=== PATIENT | female | born 1955 | race Caucasian/White ===

== ENCOUNTER 2023-03-11 07:45 | Outpatient (OUT) | payer MEDICARE, OTHER, SELFPAY ==
[2023-03-11 08:44] LABS: Basophils Absolute Auto 0.1 10^3/uL (0.0-0.1); Basophils Percent Auto 1.5 % (0.2-2.0); Eosinophils Absolute Auto 0.2 10^3/uL (0.0-0.7); Hematocrit 46.4 % (36.0-48.0); Hemoglobin 14.5 g/dL (12.0-16.0); Immature Granulocytes Abs Auto 0.02 10^3/uL (0.00-0.03); Immature Granulocytes Pct Auto 0.3 % (0.0-0.5); Lymphocytes Absolute Auto 1.7 10^3/uL (1.2-3.8); Lymphocytes Percent Auto 25.3 % (20.5-60.0); Mean Corpuscular HGB Conc 31.3 g/dL (29.9-35.2); Mean Corpuscular Hemoglobin 30.1 pg (26.7-34.0); Mean Corpuscular Volume 96.3 fL (81.0-99.0); Mean Platelet Volume 11.2 fL (9.5-13.5); Monocytes Absolute Auto 0.7 10^3/uL (0.3-0.8); Monocytes Percent Auto 10.8 % (1.7-12.0); Neutrophils Absolute Auto 3.9 10^3/uL (1.4-6.5); Neutrophils Percent Auto 59.1 % (43.0-75.0); Platelet Count 164 10^3/uL (150-450); Red Blood Count 4.82 10^6/uL (4.20-5.40); Red Cell Distribution Width 13.3 % (11.0-15.0); White Blood Count 6.6 10^3/uL (4.0-11.0)
[2023-03-11 11:16] LABS: Estimated Average Glucose 108 mg/dL; Glycohemoglobin A1C 5.4 % (4.5-6.2)
[2023-03-11 13:04] LABS: Alanine Aminotransferase 19 U/L (14-59); Albumin Globulin Ratio 0.9; Albumin Level 3.5 g/dL (3.4-5.0); Alkaline Phosphatase 57 U/L (46-116); Anion Gap 14.3; Aspartate Amino Transferase 11 U/L (15-37); BUN Creatinine Ratio 14.9; Bilirubin Total 0.2 mg/dL (0.2-1.0); Calcium 9.1 mg/dL (8.5-10.1); Carbon Dioxide 24.3 mmol/L (21.0-32.0); Chloride 106 mmol/L (98-107); Chol HDL Ratio 4.7; Cholesterol 168 mg/dL (<=200); Estimated GFR (African America 28 (>=60); Estimated GFR (Non-African Ame 23 (>=60); Free T3 2.87 pg/mL (2.18-3.98); Globulin 3.9 g/dL; Glucose 77 mg/dL (74-106); HDL Cholesterol 36 mg/dL (40-60); Potassium 4.6 mmol/L (3.5-5.1); Sodium 140 mmol/L (136-145); Thyroid Stimulating Hormone 5.667 uIU/mL (0.358-3.740); Total Protein 7.4 g/dL (6.4-8.2); Triglycerides 159 mg/dL (<=150); VLDL CHOLESTEROL 31.8 mg/dL
[2023-03-12 10:09] LABS: Insulin 28.5 uIU/mL (2.6-24.9)
== END 2023-03-11 07:46 | disposition home or self-care (01) ==
LOC: LAB 07:46
PROVIDERS: PCP Nurse Practitioner Family; Visit Provider Nurse Practitioner Family
DX: E78.5 Hyperlipidemia, unspecified (principal); R53.83 Other fatigue; Z79.899 Other long term (current) drug therapy; R73.09 Other abnormal glucose; Z12.11 Encounter for screening for malignant neoplasm of colon; E55.9 Vitamin D deficiency, unspecified
CPT/HCPCS: 36415; 80053; 80061; 82306; 83036; 83525; 83540; 84436; 84443; 84481; 85025

== ENCOUNTER 2023-03-11 07:55 | Outpatient (OUT) | payer MEDICARE, OTHER, SELFPAY ==
--- NOTE | 2023-03-11 08:12 | XR_ITS ---
[address] [address] Patient Name: RODO MARES MRN: [id number] date: 1955 Sex: F Assigned Patient Location: [facility] Current Patient Location: [facility] Accession/Order Number: [id number] Exam Date: 03/11/2023 08:05 Report Date: 03/12/2023 13:51 At the request of: GUZMAN VICTORIA Procedure: XR DEXA axial skeleton EXAMINATION: XR DEXA axial skeleton HISTORY: Osteopenia COMPARISON: DEXA bone densitometry 02/27/2021 TECHNIQUE: Dual-energy X-ray absorptiometry (DXA) was performed. FINDINGS: SPINE ANALYSIS: Average bone mineral density is 1.153 g/cm2. T-score (standard deviation relative to young adult mean): -0.2 . +8.0% change since prior study. HIP ANALYSIS: Lowest bone mineral density is within the left femoral neck, 0.750 g/cm2. T-score (standard deviation relative to young adult mean): -2.1 . -3.8% change since prior study. XR/XR DEXA axial skeleton IMPRESSION: World Kevin Organization Classification: Osteopenia - Moderate Fracture Risk Electronically authenticated by: VANESA DUNLAP Date: 03/12/2023 13:51
== END 2023-03-11 07:56 | disposition home or self-care (01) ==
LOC: RAD 07:55
PROVIDERS: PCP Nurse Practitioner Family; Visit Provider Nurse Practitioner Family
DX: M85.811 Other specified disorders of bone density and structure, right shoulder (principal)
CPT/HCPCS: 77080

== ENCOUNTER 2023-04-14 08:58 | Outpatient (OUT) | payer MEDICARE, OTHER, SELFPAY ==
--- NOTE | 2023-04-14 09:00 | MM_ITS ---
Patient: RODO MARES Exam Date: 04/14/2023 : 1955 Gender:F Ordering : GUZMAN VICTORIA [facility] Admission #: [id number] Family : Order #: [id number] CLICK HERE TO VIEW EXAM RADIOLOGY REPORT PROCEDURE: MM TOMOSYNTHESIS SCREENING BI COMPARISON: MG MAMM LARISSA SCRN W CAD DIG, 05/31/2019. MG MAMM SCREEN 3D LARISSA CAD, 02/27/2021. INDICATIONS: Screening Calculator Name NCI Breast Cancer Risk Assessment Tool 5 Year Breast Cancer Risk Not Reported. Lifetime Breast Cancer Risk Not Reported. Personal Breast Cancer No Personal Ovarian Cancer No Treatments None Family Cancers None LOCATION: [facility] BREAST COMPOSITION: Heterogeneously dense,which may obscure small masses. FINDINGS: DIAGNOSTIC CATEGORY 2--BENIGN FINDING. NO CHANGE FROM COMPARISON. Scattered benign-appearing nodules are present. Scattered benign-appearing calcifications are present. Scattered benign-appearing lymph nodes are present. RIGHT BREAST: No significant suspicious finding. LEFT BREAST: No significant suspicious finding. RECOMMENDATIONS: ROUTINE MAMMOGRAM AND CLINICAL EVALUATION IN 12 MONTHS. PLEASE NOTE: A NORMAL MAMMOGRAM DOES NOT EXCLUDE THE POSSIBILITY OF BREAST CANCER. A CLINICALLY SUSPICIOUS PALPABLE LUMP SHOULD BE BIOPSIED. Dictated by: Kian Sanchez MD on 04/14/2023 at 15:19 Approved by: Kian Sanchez MD on 04/14/2023 at 15:20
[2023-04-14 11:01] LABS: Free T4 0.83 ng/dL (0.76-1.46)
[2023-04-14 11:18] LABS: Thyroid Stimulating Hormone 3.316 uIU/mL (0.358-3.740)
== END 2023-04-14 08:59 | disposition home or self-care (01) ==
LOC: MAMMO 08:58
PROVIDERS: PCP Nurse Practitioner Family; Visit Provider Nurse Practitioner Family
DX: Z12.31 Encounter for screening mammogram for malignant neoplasm of breast (principal); R94.6 Abnormal results of thyroid function studies
CPT/HCPCS: 36415; 77063; 77067; 84439; 84443

== ENCOUNTER 2023-10-25 19:56 | Emergency (ER) | payer MEDICARE, OTHER, SELFPAY ==
[2023-10-25] VITALS (25 sets, daily range): BP systolic 159–178; BP diastolic 60–81; PULSE 70–78; O2SAT 96–100; BMI 26.3
[2023-10-25 20:06] LABS: Glucometer 138 mg/dL (74-106)
--- NOTE | 2023-10-25 20:10 | CT_ITS ---
The [address] [address] Patient Name: RODO MARES MRN: [facility]:[id number] date: 1955 Sex: F Assigned Patient Location: ER Current Patient Location: Accession/Order Number: [id number] Exam Date: 10/25/2023 20:50 Report Date: 10/25/2023 21:35 At the request of: ELSIE WILKINSON Procedure: CT angio neck EX CT angio neck HISTORY: Right arm weakness COMPARISON: None. TECHNIQUE: Overlapping thin sections were obtained during a bolus of IV contrast from the aortic arch through the [place] of [place]. Reconstruction of the source data set includes multiplanar 2D in the bilateral oblique planes, and 3D sagittal and coronal thin slab MIP One of the following dose optimization techniques was utilized in the performance of this exam: Automated exposure control; adjustment of the mA and/or kV according to the patient's size; or use of an iterative reconstruction technique. Specific details can be referenced in the facility's radiology CT exam operational policy. FINDINGS: Angiographic findings: Aortic arch and great vessels: Negative. Right CCA/ICA: Calcified plaque at the carotid bulb producing a mild NASCET 0-50% (closer to 0%) diameter stenosis. Left CCA/ICA: Smooth noncalcified plaque producing a severe NASCET greater than 70% diameter stenosis Vertebrobasilar: Negative. [place] of [place]: Negative. Additional non-angiographic findings: None significant. CT/CT angio neck IMPRESSION: 1. 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 Electronically authenticated by: LIV ANDERSEN Date: 10/25/2023 21:35
--- NOTE | 2023-10-25 20:10 | CT_ITS ---
The [address] [address] Patient Name: RODO MARES MRN: [facility]:[id number] date: 1955 Sex: F Assigned Patient Location: ER Current Patient Location: ER Accession/Order Number: [id number] Exam Date: 10/25/2023 20:18 Report Date: 10/25/2023 21:00 At the request of: ELSIE WILKINSON Procedure: CT stroke head/brain wo con EXAMINATION: CT stroke head/brain wo con, 10/25/2023 8:18 PM EDT HISTORY: Right arm weakness COMPARISON: None. TECHNIQUE: CT scan of the head was performed without IV contrast. CT dose reduction technique was used, including Automated Exposure Control. FINDINGS: BRAIN PARENCHYMA/CSF SPACES: Ventricles are normal in size for age. There is no hemorrhage, mass effect or midline shift. Atherosclerotic calcification of the vertebral and bilateral carotid arteries. Small likely chronic lacunar infarct in the left thalamus. Additional small likely chronic lacunar infarcts in the bilateral basal ganglia. Mild low-attenuation in the white matter consistent with chronic microvascular ischemia. PARANASAL SINUSES: Clear. SKULL BASE AND CALVARIUM: Moderate to large right mastoid and middle ear effusion. EXTRACRANIAL SOFT TISSUES: Normal. CT/CT stroke head/brain wo con IMPRESSION: 1. No acute intracranial abnormality. 2. Atherosclerotic calcification, chronic microvascular ischemia and several likely chronic lacunar infarcts in the bilateral basal ganglia and the left thalamus. 3. Right mastoid and middle ear effusion. Recommend correlation for otomastoiditis. Electronically authenticated by: VANESA MONAE Date: 10/25/2023 21:00
--- NOTE | 2023-10-25 20:10 | CT_ITS ---
The [address] [address] Patient Name: RODO MARES MRN: [facility]:[id number] date: 1955 Sex: F Assigned Patient Location: ER Current Patient Location: ER Accession/Order Number: [id number] Exam Date: 10/25/2023 20:50 Report Date: 10/25/2023 21:37 At the request of: ELSIE WILKINSON Procedure: CT angio head Right arm weakness HISTORY: Right arm weakness COMPARISON: None. TECHNIQUE: Overlapping thin sections were obtained during a bolus of IV contrast from the upper neck through the upper cerebrum. Reconstruction of the source data set includes multiplanar 2D in the bilateral oblique planes, and 3D sagittal and coronal thin slab MIP series. 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 One of the following dose optimization techniques was utilized in the performance of this exam: Automated exposure control; adjustment of the mA and/or kV according to the patient's size; or use of an iterative reconstruction technique. Specific details can be referenced in the facility's radiology CT exam operational policy. FINDINGS: Angiographic findings: Internal carotids: Minimal calcified plaque in the bilateral carotid siphons Vertebrobasilar: Negative. [place] of [place]: Negative. TOI circulation: Negative. MCA circulation: Negative. BILINGUAL TRAINER circulation: Negative. Additional non-angiographic findings: None significant. CT/CT angio head IMPRESSION: 1. No evidence of proximal large vessel occlusion, flow-limiting intracranial stenosis or aneurysm Electronically authenticated by: LIV ANDERSEN Date: 10/25/2023 21:37
--- NOTE | 2023-10-25 20:13 | XR_ITS ---
The [address] [address] Patient Name: RODO MARES MRN: [facility]:[id number] date: 1955 Sex: F Assigned Patient Location: ER Current Patient Location: ER Accession/Order Number: [id number] Exam Date: 10/25/2023 20:45 Report Date: 10/25/2023 21:49 At the request of: ELSIE WILKINSON Procedure: XR chest 1V EXAMINATION: XR chest 1V, , 10/25/2023 8:45 PM EDT INDICATION: TIA HISTORY: Ordering Provider Reason for Exam: TIA Technologist Note: Additional: COMPARISON: None. TECHNIQUE: Chest x-ray: One view. FINDINGS: No pneumothorax, pleural effusion or focal airspace consolidation. Heart is normal in size. Bony thorax is unremarkable. XR/XR chest 1V IMPRESSION: No acute cardiopulmonary process. Electronically authenticated by: RAFA GRIFFITH Date: 10/25/2023 21:49
--- NOTE | 2023-10-25 20:13 | ECG_ITS ---
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
--- NOTE | 2023-10-25 20:14 | ED.GENADUL1 ---
HPI HPI - General Adult General Chief complaint: Neuro Symptoms/Deficit Stated complaint: Stroke Possible Time Seen by Provider: 10/25/23 19:57 Source: patient and family Mode of arrival: Wheelchair Limitations: no limitations History of Present Illness HPI narrative: Patient is A 67-year-old female with a history of rheumatoid arthritis, Hypertension who presents to the emergency department for possible stroke type symptoms. 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 At this time, patient has no noted facial drooping or speech changes by family. She is alert and oriented and answering questions appropriately. She is using her right hand without difficulty. She denies fevers, chills, vomiting, chest pain, shortness of breath, dizziness. She has had intermittent headaches for the last several days. She was treated last week for bronchitis by her primary care provider with a Z-Parish, prednisone and Tessalon Perles. She states her symptoms have improved and she has not needed the Tessalon Perles in the last several days. She is a pack per day cigarette smoker. She denies these symptoms previously, but states she was told by her PCP about 10 years ago that she has had a previous stroke. She does not take anticoagulation. Related Data Home Medications ?Medication ?Instructions ?Recorded ?Confirmed alendronate 70 mg tablet 70 mg PO .weekly 10/25/23 10/25/23 calcitriol 0.25 mcg capsule 0.25 mcg PO DAILY 10/25/23 10/25/23 calcium carbonate (Oyster Shell 500 mg PO DAILY 10/25/23 10/25/23 Calcium 500) cetirizine 10 mg tablet 10 mg PO DAILY 10/25/23 10/25/23 cholecalciferol (vitamin D3) 50 50 mcg PO DAILY 10/25/23 10/25/23 mcg (2,000 unit) capsule (Vitamin D3) escitalopram oxalate 5 mg tablet 5 mg PO DAILY 10/25/23 10/25/23 leflunomide 10 mg tablet 10 mg PO DAILY 10/25/23 10/25/23 lisinopril 10 mg tablet 10 mg PO DAILY 10/25/23 10/25/23 magnesium oxide 400 mg (241.3 mg 400 mg PO DAILY 10/25/23 10/25/23 magnesium) tablet Allergies Allergy/AdvReac Type Severity Reaction Status Date / Time No Known Drug Allergies Allergy Verified 10/25/23 20:05 Opioid HPI Opioid Management Most Recent Opioid Data: No Data to Display Review of Systems ROS Constitutional Denies: fever or chills Ears, nose, mouth, and throat Denies: throat pain Respiratory Denies: shortness of breath or cough Gastrointestinal Denies: nausea or vomiting Musculoskeletal Denies: back pain or neck pain Integumentary/Breast Denies: rash Neurological Reports: headache and weakness in extremities; Denies: numbness in extremities, lack of coordination or dizziness Hematologic/Lymphatic Denies: easy bruising or easy bleeding Exam Narrative Exam Narrative: Gen.: Awake, alert, in no distress Head: Normocephalic, atraumatic ENT: Moist mucous membranes, No facial drooping noted. Clear speech Respiratory: No respiratory distress, lungs clear bilaterally Cardio: Regular rate and rhythm Extremities: Moves extremities equally, no injuries noted Psych: Normal mood and affect Neuro: No focal neuro deficit; NIH stroke scale of 0 Skin: Warm, dry, intact Constitutional Vital Signs, click to edit/add: Last Vital Signs Pulse 74 10/25/23 20:10 Resp 19 10/25/23 20:10 BP 161/60 H 10/25/23 20:10 Pulse Ox 98 10/25/23 20:10 O2 Del Method Room Air 10/25/23 19:59 Course Vital Signs Vital signs: Vital Signs Pulse Rate 76 10/25/23 19:59 Respiratory Rate 18 10/25/23 19:59 Blood Pressure 166/81 H 10/25/23 19:59 Pulse Oximetry 99 10/25/23 19:59 Oxygen Delivery Method Room Air 10/25/23 19:59 Pulse Rate 74 10/25/23 20:10 Respiratory Rate 19 10/25/23 20:10 Blood Pressure 161/60 H 10/25/23 20:10 Pulse Oximetry 98 10/25/23 20:10 Oxygen Delivery Method Room Air 10/25/23 19:59 Medical Decision Making [facility] Narrative Medical decision making narrative: Labs obtained, patient was immediately sent for CT of the brain, noncontrast to rule out stroke. This was unremarkable although there are old lacunar infarcts noted. CT angio of the head and neck was performed, patient has a creatinine of 2.1 with GFR 28, CT angio was discussed with the radiologist who approved the study and requested the patient receive IV fluids. Patient has no significant focal medical complaints in the ER. Her vital signs are unremarkable. CT angio of the head and neck with no evidence of large vessel occlusion. I spoke with Dr. Lazaro for interventional stroke at [facility], given the patient's 70% stenosis in the left carotid artery, he recommended to be transferred to [place] for stroke evaluation. He requested that the patient have aspirin and Plavix and be transferred. Excepted to Dr. Ray. Patient is stable at time of transfer. Critical care time 35 minutes. Medical Records Medical records reviewed: Yes I reviewed the patient's medical records Lab Data Lab results reviewed: Yes I reviewed the patient's lab results Labs: Lab Results 10/25/23 10/25/23 Range/Units 20:04 20:07 WBC 14.3 H (4.0-11.0) 10^3/uL RBC 4.45 (4.20-5.40) 10^6/uL Hgb 13.6 (12.0-16.0) g/dL Hct 42.4 (36.0-48.0) % MCV 95.3 (81.0-99.0) fL MCH 30.6 (26.7-34.0) pg MCHC 32.1 (29.9-35.2) g/dL RDW 13.6 (11.0-15.0) % Plt Count 194 (150-450) 10^3/uL MPV 10.8 (9.5-13.5) fL Neut % (Auto) 59.9 (43.0-75.0) % Lymph % (Auto) 29.3 (20.5-60.0) % [place] % (Auto) 7.9 (1.7-12.0) % Eos % (Auto) 0.9 (0.9-7.0) % Baso % (Auto) 0.7 (0.2-2.0) % Neut # (Auto) 8.5 H (1.4-6.5) 10^3/uL Lymph # (Auto) 4.2 H (1.2-3.8) 10^3/uL [place] # (Auto) 1.1 H (0.3-0.8) 10^3/uL Eos # (Auto) 0.1 (0.0-0.7) 10^3/uL Baso # (Auto) 0.1 (0.0-0.1) 10^3/uL Abs Immat Gran (auto) 0.19 H (0.00-0.03) 10^3/uL Imm/Tot Granulo (auto) 1.3 H (0.0-0.5) % PT 9.8 (9.0-11.6) sec INR <0.93 Sodium 144 (136-145) mmol/L Potassium 3.7 (3.5-5.1) mmol/L Chloride 110 H (98-107) mmol/L Carbon Dioxide 23.0 (21.0-32.0) mmol/L Anion Gap 14.7 BUN 31.0 H (7.0-18.0) mg/dL Creatinine 2.10 H (0.55-1.02) mg/dL Est GFR ( Amer) 28 L (>=60) Est GFR (Non-Af Amer) 23 L (>=60) BUN/Creatinine Ratio 14.8 Glucose 111 H (74-106) mg/dL Calcium 9.1 (8.5-10.1) mg/dL Total Bilirubin 0.3 (0.2-1.0) mg/dL AST 10 L (15-37) U/L ALT 17 (14-59) U/L Alkaline Phosphatase 51 (46-116) U/L Troponin I High Sens 13.8 (4.0-51.3) pg/mL Total Protein 7.0 (6.4-8.2) g/dL Albumin 3.5 (3.4-5.0) g/dL Globulin 3.5 g/dL Albumin/Globulin Ratio 1.0 TSH 7.462 H (0.358-3.740) uIU/mL Free T4 0.79 (0.76-1.46) ng/dL Free T3 2.39 (2.18-3.98) pg/mL POC Glucose 138 H (74-106) mg/dL Imaging Data CT scan - head: Radiologist's impression: ITS Impressions Brain CT 10/25/23 20:10 IMPRESSION: 1. No acute intracranial abnormality. 2. Atherosclerotic calcification, chronic microvascular ischemia and several likely chronic lacunar infarcts in the bilateral basal ganglia and the left thalamus. 3. Right mastoid and middle ear effusion. Recommend correlation for otomastoiditis. Electronically authenticated by: VANESA MONAE Date: 10/25/2023 21:00 Head CTA 10/25/23 20:10 IMPRESSION: 1. No evidence of proximal large vessel occlusion, flow-limiting intracranial stenosis or aneurysm Electronically authenticated by: LIV ANDERSEN Date: 10/25/2023 21:37 Neck CTA 10/25/23 20:10 IMPRESSION: 1. 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 Electronically authenticated by: LIV ANDERSEN Date: 10/25/2023 21:35 ECG Data Attestation: I personally reviewed and interpreted this ECG as follows: (Normal sinus rhythm at a rate of 70, no acute ST elevation or ectopy. EKG reviewed by attending physician) Discharge Plan Discharge Stand Alone Forms: Portal Instructions Chief Complaint: Neuro Symptoms/Deficit Clinical Impression: Carotid artery stenosis, Transient ischemic attack (TIA) Patient Disposition: [facility] Time of Disposition Decision: 21:54 Discharge Location: [facility] Condition: Good Mode of Transportation: EMS Prescriptions / Home Meds: No Action cetirizine 10 mg tablet 10 mg PO DAILY alendronate 70 mg tablet 70 mg PO .weekly leflunomide 10 mg tablet 10 mg PO DAILY magnesium oxide 400 mg (241.3 mg magnesium) tablet 400 mg PO DAILY calcium carbonate [Oyster Shell Calcium 500] 500 mg calcium (1,250 mg) tablet 500 mg PO DAILY lisinopril 10 mg tablet 10 mg PO DAILY calcitriol 0.25 mcg capsule 0.25 mcg PO DAILY escitalopram oxalate 5 mg tablet 5 mg PO DAILY cholecalciferol (vitamin D3) [Vitamin D3] 50 mcg (2,000 unit) capsule 50 mcg PO DAILY Print Language: Ukrainian Referrals: GUZMAN VICTORIA [Primary Care Provider] - 1 week
[2023-10-25 20:19] LABS: Basophils Absolute Auto 0.1 10^3/uL (0.0-0.1); Basophils Percent Auto 0.7 % (0.2-2.0); Eosinophils Absolute Auto 0.1 10^3/uL (0.0-0.7); Eosinophils Percent Auto 0.9 % (0.9-7.0); Hematocrit 42.4 % (36.0-48.0); Hemoglobin 13.6 g/dL (12.0-16.0); Immature Granulocytes Abs Auto 0.19 10^3/uL (0.00-0.03); Immature Granulocytes Pct Auto 1.3 % (0.0-0.5); Lymphocytes Absolute Auto 4.2 10^3/uL (1.2-3.8); Lymphocytes Percent Auto 29.3 % (20.5-60.0); Mean Corpuscular HGB Conc 32.1 g/dL (29.9-35.2); Mean Corpuscular Hemoglobin 30.6 pg (26.7-34.0); Mean Corpuscular Volume 95.3 fL (81.0-99.0); Mean Platelet Volume 10.8 fL (9.5-13.5); Monocytes Absolute Auto 1.1 10^3/uL (0.3-0.8); Monocytes Percent Auto 7.9 % (1.7-12.0); Neutrophils Absolute Auto 8.5 10^3/uL (1.4-6.5); Neutrophils Percent Auto 59.9 % (43.0-75.0); Platelet Count 194 10^3/uL (150-450); Red Blood Count 4.45 10^6/uL (4.20-5.40); Red Cell Distribution Width 13.6 % (11.0-15.0); White Blood Count 14.3 10^3/uL (4.0-11.0)
[2023-10-25 20:33] LABS: INR <0.93; Prothrombin Time 9.8 sec (9.0-11.6)
[2023-10-25 20:37] LABS: Alanine Aminotransferase 17 U/L (14-59); Albumin Level 3.5 g/dL (3.4-5.0); Alkaline Phosphatase 51 U/L (46-116); Anion Gap 14.7; Aspartate Amino Transferase 10 U/L (15-37); BUN Creatinine Ratio 14.8; Bilirubin Total 0.3 mg/dL (0.2-1.0); Calcium 9.1 mg/dL (8.5-10.1); Chloride 110 mmol/L (98-107); Estimated GFR (African America 28 (>=60); Estimated GFR (Non-African Ame 23 (>=60); Globulin 3.5 g/dL; Glucose 111 mg/dL (74-106); Potassium 3.7 mmol/L (3.5-5.1); Sodium 144 mmol/L (136-145)
[2023-10-25 20:43] LABS: Thyroid Stimulating Hormone 7.462 uIU/mL (0.358-3.740); Troponin I High Sensitivity 13.8 pg/mL (4.0-51.3)
[2023-10-25] MEDS: 0.9 % SODIUM CHLORIDE 1,000 ML 1000 ML IV (21:00)
[2023-10-25 21:09] LABS: Free T4 0.79 ng/dL (0.76-1.46)
[2023-10-25 21:16] LABS: Free T3 2.39 pg/mL (2.18-3.98)
[2023-10-25] MEDS: ASPIRIN 81 MG TAB.CHEW 324 MG PO (22:05)
[2023-10-25] MEDS: CLOPIDOGREL BISULFATE 75 MG TABLET 300 MG PO (22:05)
== END 2023-10-25 23:42 | disposition short-term general hospital (02) ==
PROVIDERS: Physician Assistant; Emergency Provider Emergency Medicine; PCP Nurse Practitioner Family
DX: I65.22 Occlusion and stenosis of left carotid artery (principal); G45.9 Transient cerebral ischemic attack, unspecified; Z79.899 Other long term (current) drug therapy; F17.210 Nicotine dependence, cigarettes, uncomplicated
CPT/HCPCS: 36415; 36416; 70450; 70496; 70498; 71045; 80053; 82948; 84439; 84443; 84481; 84484; 85025; 85610; 93005; 99285; Q9967

== ENCOUNTER 2023-11-25 15:54 | Emergency (ER) | payer MEDICARE, OTHER, SELFPAY ==
[2023-11-25 15:58] VITALS: BP 163/71; PULSE 64; TEMP 36.7; O2SAT 99; BMI 27.5
--- NOTE | 2023-11-25 16:04 | CT_ITS ---
The [address] [address] Patient Name: RODO MARES MRN: [facility]:[id number] date: 1955 Sex: F Assigned Patient Location: ER Current Patient Location: ER Accession/Order Number: [id number] Exam Date: 11/25/2023 16:20 Report Date: 11/25/2023 16:45 At the request of: JESSIKA CALI Procedure: CT head/brain wo con EXAM: CT head/brain wo con CLINICAL INDICATION: headache recent stroke COMPARISON: CT head and CTA head/neck 10/25/2023. TECHNIQUE: Axial CT images of the brain were obtained without contrast. Coronal and sagittal reformats were obtained. Dose reduction techniques were achieved by using automated exposure control and/or adjustment of mA and/or kV according to patient size and/or use of iterative reconstruction technique. FINDINGS: No intracranial hemorrhage, extra-axial fluid collection, hydrocephalus, midline shift, or new acute large vessel territory infarction. No other mass effect. Patchy periventricular and subcortical hypoattenuation is likely on the basis of chronic microvascular angiopathic changes. Mild symmetric global volume loss with bilateral frontal lobe predominance. Commensurate prominence of the ventricular system. Basal cisterns are patent. Unchanged old bilateral basal ganglia lacunar infarcts. No calvarial fracture. Normal soft tissues. Paranasal sinuses are well-aerated. Small moderate right mastoid effusion. CT/CT head/brain wo con IMPRESSION: No acute intracranial process. No substantial change since 10/25/2023. Electronically authenticated by: SHIVAM NATH Date: 11/25/2023 16:45
--- NOTE | 2023-11-25 16:06 | ED_ITS ---
HPI HPI - General Adult General Chief complaint: Headache Stated complaint: HEADACHE Time Seen by Provider: 11/25/23 15:58 Source: patient Mode of arrival: walk-in Limitations: no limitations History of Present Illness HPI narrative: Patient presents the ED complaining of a headache. She reports that it is generalized but slightly more on the right side. About a month ago she had a stroke with right-sided weakness. She has recovered mostly but not fully. She was started on aspirin and Plavix. She is concerned that the headaches are a sign of another stroke and she is nervous about that. She said that she was feeling okay after the stroke for 2 weeks and then for the past 2 weeks she has been having these headaches on and off but more often than not. She does not have a history of headaches prior to this. She states she is sensitive to light but not sound.She denies recent fall or trauma Related Data Home Medications ?Medication ?Instructions ?Recorded ?Confirmed alendronate 70 mg tablet 70 mg PO .weekly 10/25/23 10/25/23 calcitriol 0.25 mcg capsule 0.25 mcg PO DAILY 10/25/23 10/25/23 calcium carbonate (Oyster Shell 500 mg PO DAILY 10/25/23 10/25/23 Calcium 500) cetirizine 10 mg tablet 10 mg PO DAILY 10/25/23 10/25/23 cholecalciferol (vitamin D3) 50 50 mcg PO DAILY 10/25/23 10/25/23 mcg (2,000 unit) capsule (Vitamin D3) escitalopram oxalate 5 mg tablet 5 mg PO DAILY 10/25/23 10/25/23 leflunomide 10 mg tablet 10 mg PO DAILY 10/25/23 10/25/23 lisinopril 10 mg tablet 10 mg PO DAILY 10/25/23 10/25/23 magnesium oxide 400 mg (241.3 mg 400 mg PO DAILY 10/25/23 10/25/23 magnesium) tablet Previous Rx's ?Medication ?Instructions ?Recorded [id number] 1 cap PO Q8H PRN pain #20 caps 11/25/23 50 mg-300 mg-40 mg capsule (Fioricet) Allergies Allergy/AdvReac Type Severity Reaction Status Date / Time No Known Drug Allergies Allergy Verified 10/25/23 20:05 Opioid HPI Opioid Management Most Recent Opioid Data: No Data to Display Review of Systems ROS Status of ROS 10 or more systems reviewed and unremark able except as noted in history and below Exam Narrative Exam Narrative: Time Seen: [] Vital Signs: [Per nurse's notes.] General: [Alert] Skin: [Warm, dry, no rash.] Head: [Normocephalic, atraumatic.] Neck: [Supple, trachea midline.] Eye: [Pupils are equal, round and reactive to light, extraocular movements are intact, normal conjunctiva.] Ears, nose, mouth and throat: oral mucosa moist. Cardiovascular: [Regular rate and rhythm, no murmur.] Respiratory: [Lungs are clear to auscultation, respirations are non-labored, breath sounds are equal.] Chest wall: [No tenderness, no deformity.] Gastrointestinal: [Soft, nontender, non distended, normal bowel sounds.] MSK: 5 out of 5 muscle strength x 4 extremities no calf pain or edema Lymphatics: [No lymphadenopathy.] Psychiatric: [Cooperative, appropriate mood & affect.] Neurological: [Alert and oriented to person, place, time, and situation, no focal neurological deficit observed.] Constitutional Vital Signs, click to edit/add: Last Vital Signs Temp 98.1 F 11/25/23 15:58 Pulse 64 11/25/23 15:58 Resp 18 11/25/23 15:58 BP 163/71 H 11/25/23 15:58 Pulse Ox 99 11/25/23 15:58 O2 Del Method Room Air 11/25/23 15:58 Course Vital Signs Vital signs: Vital Signs Temperature 98.1 F 11/25/23 15:58 Pulse Rate 64 11/25/23 15:58 Respiratory Rate 18 11/25/23 15:58 Blood Pressure 163/71 H 11/25/23 15:58 Pulse Oximetry 99 11/25/23 15:58 Oxygen Delivery Method Room Air 11/25/23 15:58 Temperature 98.1 F 11/25/23 15:58 Pulse Rate 64 11/25/23 15:58 Respiratory Rate 18 11/25/23 15:58 Blood Pressure 163/71 H 11/25/23 15:58 Pulse Oximetry 99 11/25/23 15:58 Oxygen Delivery Method Room Air 11/25/23 15:58 Medical Decision Making MDM Narrative Medical decision making narrative: Patient is feeling better after the medication. Her headache is still slightly there but much better. CT scans negative for acute. Labs are at patient's baseline and stable. Instructed patient to follow-up with her neurologist about these Headaches. I will send her home with See. Return to ER for wors ening symptoms or certainly if there are any strokelike symptoms that occur. Differential Diagnosis Differential Diagnosis: Intracranial hemorrhage, migraine, headache, electrolyte abnormality Medical Records Medical records reviewed: Yes I reviewed the patient's medical records Lab Data Lab results reviewed: Yes I reviewed the patient's lab results Labs: Lab Results 11/25/23 Range/Units 16:12 WBC 8.8 (4.0-11.0) 10^3/uL RBC 4.02 L (4.20-5.40) 10^6/uL Hgb 12.4 (12.0-16.0) g/dL Hct 39.2 (36.0-48.0) % MCV 97.5 (81.0-99.0) fL MCH 30.8 (26.7-34.0) pg MCHC 31.6 (29.9-35.2) g/dL RDW 13.3 (11.0-15.0) % Plt Count 175 (150-450) 10^3/uL MPV 10.6 (9.5-13.5) fL Neut % (Auto) 63.9 (43.0-75.0) % Lymph % (Auto) 19.0 L (20.5-60.0) % [place] % (Auto) 12.5 H (1.7-12.0) % Eos % (Auto) 2.6 (0.9-7.0) % Baso % (Auto) 1.0 (0.2-2.0) % Neut # (Auto) 5.6 (1.4-6.5) 10^3/uL Lymph # (Auto) 1.7 (1.2-3.8) 10^3/uL [place] # (Auto) 1.1 H (0.3-0.8) 10^3/uL Eos # (Auto) 0.2 (0.0-0.7) 10^3/uL Baso # (Auto) 0.1 (0.0-0.1) 10^3/uL Abs Immat Gran (auto) 0.09 H (0.00-0.03) 10^3/uL Imm/Tot Granulo (auto) 1.0 H (0.0-0.5) % Sodium 140 (136-145) mmol/L Potassium 4.9 (3.5-5.1) mmol/L Chloride 106 (98-107) mmol/L Carbon Dioxide 27.3 (21.0-32.0) mmol/L Anion Gap 11.6 BUN 44.0 H (7.0-18.0) mg/dL Creatinine 2.51 H (0.55-1.02) mg/dL Est GFR ( Amer) 23 L (>=60) Est GFR (Non-Af Amer) 19 L (>=60) BUN/Creatinine Ratio 17.5 Glucose 107 H (74-106) mg/dL Calcium 9.6 (8.5-10.1) mg/dL Total Bilirubin 0.2 (0.2-1.0) mg/dL AST 16 (15-37) U/L ALT 38 (14-59) U/L Alkaline Phosphatase 58 (46-116) U/L Total Protein 6.8 (6.4-8.2) g/dL Albumin 3.2 L (3.4-5.0) g/dL Globulin 3.6 g/dL Albumin/Globulin Ratio 0.[address] scan - head: Radiologist's impression: ITS Impressions Head CT 11/25/23 16:04 IMPRESSION: No acute intracranial process. No substantial change since 10/25/2023. Electronically authenticated by: SHIVAM NATH Date: 11/25/2023 16:45 Discharge Plan Discharge Stand Alone Forms: Portal Instructions Chief Complaint: Headache Clinical Impression: Headache Patient Disposition: Home, Self-Care Time of Disposition Decision: 17:01 Mode of Transportation: Private Vehicle Prescriptions / Home Meds: New [id number] [Fioricet] 50-300-40 mg capsule 1 cap PO Q8H PRN (Reason: pain) Qty: 20 0RF No Action cetirizine 10 mg tablet 10 mg PO DAILY alendronate 70 mg tablet 70 mg PO .weekly leflunomide 10 mg tablet 10 mg PO DAILY magnesium oxide 400 mg (241.3 mg magnesium) tablet 400 mg PO DAILY calcium carbonate [Oyster Shell Calcium 500] 500 mg calcium (1,250 mg) tablet 500 mg PO DAILY lisinopril 10 mg tablet 10 mg PO DAILY calcitriol 0.25 mcg capsule 0.25 mcg PO DAILY escitalopram oxalate 5 mg tablet 5 mg PO DAILY cholecalciferol (vitamin D3) [Vitamin D3] 50 mcg (2,000 unit) capsule 50 mcg PO DAILY Print Language: Bulgarian Instructions: Acute Headache (ED) Referrals: GUZMAN VICTORIA [Primary Care Provider] - 1 week
[2023-11-25] MEDS: DIPHENHYDRAMINE HCL 50 MG/ML (1ML) VIAL 25 MG IV (16:20)
[2023-11-25] MEDS: KETOROLAC TROMETHAMINE 30 MG/ML VIAL 15 MG IVP (16:20)
[2023-11-25] MEDS: 0.9 % SODIUM CHLORIDE 1,000 ML 1000 ML IV (16:20)
[2023-11-25] MEDS: METOCLOPRAMIDE HCL 10 MG/2 ML VIAL 5 MG IVP (16:21)
[2023-11-25 16:23] LABS: Basophils Absolute Auto 0.1 10^3/uL (0.0-0.1); Eosinophils Absolute Auto 0.2 10^3/uL (0.0-0.7); Eosinophils Percent Auto 2.6 % (0.9-7.0); Hematocrit 39.2 % (36.0-48.0); Hemoglobin 12.4 g/dL (12.0-16.0); Immature Granulocytes Abs Auto 0.09 10^3/uL (0.00-0.03); Lymphocytes Absolute Auto 1.7 10^3/uL (1.2-3.8); Mean Corpuscular HGB Conc 31.6 g/dL (29.9-35.2); Mean Corpuscular Hemoglobin 30.8 pg (26.7-34.0); Mean Corpuscular Volume 97.5 fL (81.0-99.0); Mean Platelet Volume 10.6 fL (9.5-13.5); Monocytes Absolute Auto 1.1 10^3/uL (0.3-0.8); Monocytes Percent Auto 12.5 % (1.7-12.0); Neutrophils Absolute Auto 5.6 10^3/uL (1.4-6.5); Neutrophils Percent Auto 63.9 % (43.0-75.0); Platelet Count 175 10^3/uL (150-450); Red Blood Count 4.02 10^6/uL (4.20-5.40); Red Cell Distribution Width 13.3 % (11.0-15.0); White Blood Count 8.8 10^3/uL (4.0-11.0)
[2023-11-25 16:33] LABS: Alanine Aminotransferase 38 U/L (14-59); Albumin Globulin Ratio 0.9; Albumin Level 3.2 g/dL (3.4-5.0); Alkaline Phosphatase 58 U/L (46-116); Anion Gap 11.6; Aspartate Amino Transferase 16 U/L (15-37); BUN Creatinine Ratio 17.5; Bilirubin Total 0.2 mg/dL (0.2-1.0); Calcium 9.6 mg/dL (8.5-10.1); Carbon Dioxide 27.3 mmol/L (21.0-32.0); Chloride 106 mmol/L (98-107); Estimated GFR (African America 23 (>=60); Estimated GFR (Non-African Ame 19 (>=60); Globulin 3.6 g/dL; Glucose 107 mg/dL (74-106); Potassium 4.9 mmol/L (3.5-5.1); Sodium 140 mmol/L (136-145); Total Protein 6.8 g/dL (6.4-8.2)
[2023-11-25 17:24] VITALS: BP 143/55; PULSE 51; O2SAT 100
== END 2023-11-25 17:26 | disposition home or self-care (01) ==
PROVIDERS: Emergency Provider Emergency Medicine; PCP Nurse Practitioner Family
DX: R51.9 Headache, unspecified (principal); Z86.73 Personal history of transient ischemic attack (TIA), and cerebral infarction without residual deficits; Z79.82 Long term (current) use of aspirin; Z79.02 Long term (current) use of antithrombotics/antiplatelets; Z79.899 Other long term (current) drug therapy
CPT/HCPCS: 36415; 70450; 80053; 85025; 96374; 96375; 99285

== ENCOUNTER 2023-12-18 07:09 | Outpatient (RCR) | payer MEDICARE, OTHER, SELFPAY ==
--- NOTE | 2023-12-22 10:58 | PC.NURSE ---
Pt requested to be DC from [facility]. Pt states she is not able to continue to attend. We discussed in length the purpose of it and the importance of the program but pt states she wishes to be DC> I will let Dr. Cervantes's office know that pt is being DC at this time.
== END 2023-12-22 10:59 | disposition home or self-care (01) ==
LOC: CR 07:09
PROVIDERS: PCP Nurse Practitioner Family
DX: I70.213 Atherosclerosis of native arteries of extremities with intermittent claudication, bilateral legs (principal)
CPT/HCPCS: 93668

== ENCOUNTER 2024-04-06 07:40 | Outpatient (OUT) | payer MEDICARE, OTHER, SELFPAY ==
--- OUTSIDE RECORDS SUMMARY | 2024-04-06 07:42 | XMS_ITS | CCD ---
Author Organization [facility] Care Team Providers Care Quality Cloth Tester Name Role Phone IONE, DINKAR Unavailable Unavailable IONE, DINKAR Unavailable Unavailable UNKNOWN, PROVIDER Unavailable Unavailable UNKNOWN, PROVIDER Unavailable Unavailable SAVITA Victoria Leonie Primary Care Provider MD Tayo Devlin Attending Provider [phone] SAVITA Victoria [place] Leonie Primary Care Provider MD Tayo Devlin Attending Provider RBOOKLYN VICTORIA Admitting Unavailable BROOKLYN VICTORIA Attending Unavailable JULIEN, BROOKLYN Primary Care Unavailable ABBAS, DR JOHNSON Admitting Unavailable ABBAS, DR JOHNSON Attending Unavailable JULIEN, BROOKLYN Primary Care Unavailable ABBAS, DR JOHNSON Consulting Unavailable BENNETT, DR SHERMAN Johnson Consulting Unavailable JULIEN, BROOKLYN Admitting Unavailable JULIEN, BROOKLYN Attending Unavailable JULIEN, BROOKLYN Primary Care Unavailable JULIEN, BROOKLYN Consulting Unavailable SAVITA Victoria [place] Leonie Primary Care Provider SAVITA Grant Attending Provider MD David Devlin Attending Provider SAVITA Victoria [place] Leonie Primary Care Provider SAVITA Grant Attending Provider SAVITA Victoria [place] Leonie Primary Care Provider SAVITA Grant Attending Provider [place] Victoria Primary Care Unavailable Ankita Grant Admitting Unavailable Ankita Grant Attending Unavailable Ankita Grant Attending Unavailable Julien, [place] Leonie Primary Care Unavailable ObermeyerAnkita L Admitting Unavailable ObermaldaerAnkita Attending Unavailable Julien, [place] Leonie Primary Care Unavailable ObermeyerAnkita Admitting Unavailable Julien, [place] Leonie Primary Care Unavailable David Devlin Admitting Unavailable DevlinDavid Attending Unavailable JULIEN, BROOKLYN S Referring Unavailable JULIEN, BROOKLYN S Primary Care Unavailable JULIEN, BROOKLYN S Referring Unavailable JULIEN, BROOKLYN S Primary Care Unavailable JULIEN, BROOKLYN S Referring Unavailable JULIEN, BROOKLYN S Primary Care Unavailable AMA, MOHAMED F Attending Unavailable JULIEN, BROOKLYN S Referring Unavailable JULIEN, BROOKLYN S Primary Care Unavailable AMA, MOHAMED F Attending Unavailable JULIEN, BROOKLYN S Referring Unavailable JULIEN, BROOKLYN S Primary Care Unavailable ANGELES PILLAI Attending Unavailable JULIEN, BROOKLYN S Referring Unavailable JULIEN, BROOKLYN S Primary Care Unavailable OBED VERMA Admitting Unavailable OBED VERMA Attending Unavailable KENDAL DELONG Referring Unavailable JULIEN, BROOKLYN S Primary Care Unavailable OBERNEDER, KRISHNA R Referring Unavailable JULIEN, BROOKLYN S Primary Care Unavailable PARI ENGLAND Attending Unavailable CINDY CUNHA Referring Unavailable ALEX PATTEN Attending Unavailable PARI ENGLAND Attending Unavailable ELIZABETH WHITLEY Referring Unavailable JULIEN, BROOKLYN S Primary Care Unavailable AMA, MOHAMED F Attending Unavailable AMA, MOHAMED F Referring Unavailable OBERGARYER, KRISHNA R Referring Unavailable JULIEN, BROOKLYN S Primary Care Unavailable Allergies Allergy Classification Reported Allergen(s) Allergy Type Date of Onset Reaction(s) Facility (1 source) Unable to Assess Drug allergy (disorder) 12-08-2017 [facility] Repository Problems Active Problems Problem Classification Problem Date Documented Date Episodic/Chronic Acute cerebrovascular disease (2 sources) Cerebrovascular accident; Translations: [Cerebral infarction, unspecified] Onset: 10-26-2023 Chronic Chronic kidney disease (6 sources) Chronic kidney disease, stage 3 (moderate); Translations: [Chronic kidney disease, unspecified] Onset: 04-01-2017 Chronic Deficiency and other anemia (1 source) Anemia, unspecified; Translations: [ANEMIA UNSPECIFIED] Onset: 03-18-2022 Episodic Diabetes mellitus without complication (1 source) Other abnormal glucose; Translations: [OTHER ABNORMAL GLUCOSE] Onset: 03-18-2022 Episodic Disorders of lipid metabolism (4 sources) Hyperlipidemia, unspecified; Translations: [HYPERLIPIDEMIA UNSPECIFIED] Onset: 03-14-2022 Chronic Essential hypertension (1 source) Essential (primary) hypertension; Translations: [Essential (primary) hypertension] Onset: 10-26-2023 Chronic Genitourinary symptoms and ill-defined conditions (1 source) Dysuria; Translations: [Dysuria] Onset: 01-21-2024 Episodic Occlusion or stenosis of precerebral arteries (3 sources) Occlusion and stenosis of bilateral carotid arteries; Translations: [Occlusion and stenosis of left carotid artery] Onset: 10-26-2023 Chronic Other connective tissue disease (4 sources) Pain in right lower leg; Translations: [PAIN IN RIGHT LOWER LEG] Onset: 03-21-2022 Episodic Other screening for suspected conditions (not mental disorders or infectious disease) (1 source) Encounter for screening for cardiovascular disorders; Translations: [Encounter for screening for cardiovascular disorders] Onset: 11-05-2023 Episodic Peripheral and visceral atherosclerosis (2 sources) Peripheral vascular disease, unspecified; Translations: [PERIPHERAL VASCULAR DISEASE UNS] Onset: 04-21-2022 Chronic Residual codes; unclassified (1 source) Pain, unspecified; Translations: [Pain, unspecified] Onset: 10-26-2023 Episodic Rheumatoid arthritis and related disease (1 source) Rheumatoid arthritis with rheumatoid factor 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 organ or systems involvement; Translations: [Rheumatoid arthritis with rheumatoid factor 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 organ or systems involvement] Onset: 10-22-2023 Chronic Transient cerebral ischemia (3 sources) Transient cerebral ischemic attack, unspecified; Translations: [Transient cerebral ischemia] Onset: 10-26-2023 Chronic Unclassified (2 sources) Unknown / UNK(Unknown) Onset: 04-01-2017 Unclassified (1 source) Rheumatoid arthritis with rheumatoid factor 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 organ or systems involvement; Translations: [Rheumatoid arthritis with rheumatoid factor 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 organ or systems involvement] Onset: 12-25-2022 Unclassified (1 source) Carotid Artery Disease Onset: 11-19-2023 Past or Other Problems Problem Classification Problem Date Documented Da te Episodic/Chronic Other circulatory disease (5 sources) Other specified symptoms and signs involving the circulatory and respiratory systems; Translations: [OTH SPEC SX SIGNS INVLV CIRC RS] Onset: 04-17-2022 Episodic Results Test Name Value Interpretation Reference Range Facility BASIC METABOLIC PANLon 03-31 Anion gap [Moles/Vol] 11 mmol/L Normal 5-15 [facility] Comment on above: Performed By: #### U PCR, CBC, BMP, 20384-8, 2777-1, 2731-8, 09827-3 #### [facility] ([id number]) [address], [address] [place] [address] Calcium [Mass/Vol] 10.0 mg/dL Normal 8.5-10.5 [facility] Comment on above: Performed By: #### U PCR, CBC, BMP, 28366-1, 2777-1, 2731-8, 89639-1 #### [facility] ([id number]) [address], [address] [place] [address] Chloride [Moles/Vol] 104 mmol/L Normal 98-109 [facility] Comment on above: Performed By: #### U PCR, CBC, BMP, 81589-0, 2777-1, 2731-8, 93649-6 #### [facility] ([id number]) [address], [address] [place] [address] CO2 [Moles/Vol] 23 mmol/L Normal 22-32 [facility] Comment on above: Performed By: #### U PCR, CBC, BMP, 90360-0, 2777-1, 2731-8, 62348-6 #### [facility] ([id number]) [address], [address] [place] [address] Creatinine [Mass/Vol] 2.78 mg/dL High 0.40-1.00 [facility] Comment on above: Result Comment: METH OD TRACEABLE TO IDMS STANDARD Performed By: #### U PCR, CBC, BMP, 54651-7, 2777-1, 2731-8, 61718-3 #### [facility] ([id number]) [address] [address] [place] [address] GFR/1.73 sq M.predicted among non-blacks MDRD (S/P/Bld) [Vol rate/Area] 18 mL/min/{1.73_m2} Low >59 [facility] Comment on above: Result Comment: Reported eGFR is based on the CKD-EPI 2020 equation that does not use a race coefficient. Performed By: #### U PCR, CBC, BMP, 81149-0, 2777-1, 2731-8, 11689-8 #### [facility] ([id number]) [address] [address] [place] [address] Glucose [Mass/Vol] 97 mg/dL Normal 65-99 [facility] Comment on above: Performed By: #### U PCR, CBC, BMP, 65302-7, 7-1, 273-8, 75919-3 #### [facility] ([id number]) [address] [address] [place] [address] Potassium [Moles/Vol] 4.2 mmol/L Normal 3.5-5.0 [facility] Comment on above: Performed By: #### U PCR, CBC, BMP, 62488-7, 2777-1, 2731-8, 32353-7 #### [facility] ([id number]) [address] [address] [place] [address] Sodium [Moles/Vol] 138 mmol/L Normal 134-146 [facility] Comment on above: Performed By: #### U PCR, CBC, BMP, 30261-5, 2777-1, 2731-8, 01864-6 #### [facility] ([id number]) [address] [address] [place] [address] Urea nitrogen [Mass/Vol] 36 mg/dL High 5-27 [facility] Comment on above: Performed By: #### U PCR, CBC, BMP, 83675-8, 2777-1, 2731-8, 66063-7 #### [facility] ([id number]) [address], [facility] [address] [place] [address] COMPLETE BLOOD COUNTon 03-31 Erythrocyte distribution width (RBC) [Ratio] 13.5 % Normal 11.5-15.0 [facility] Comment on above: Performed By: #### U PCR, CBC, BMP, 48461-4, 2777-1, 2731-8, 90704-3 #### [facility] ([id number]) [address], [address] [address] Hematocrit (Bld) [Volume fraction] 33.8 % Low 35-47 [facility] Comment on above: Performed By: #### U PCR, CBC, BMP, 66615-2, 2777-1, 2731-8, 16835-4 #### [facility] ([id number]) [address], [address] [address] Hemoglobin (Bld) [Mass/Vol] 11.3 g/dL Low 11.7-15.5 [facility] Comment on above: Performed By: #### U PCR, CBC, BMP, 47607-1, 2777-1, 2731-8, 22175-3 #### [facility] ([id number]) [address], [address] [address] MCH (RBC) [Entitic mass] 30.5 pg Normal 27-34 [facility] Comment on above: Performed By: #### U PCR, CBC, BMP, 85632-7, 2777-1, 2731-8, 85702-3 #### [facility] ([id number]) [address] [address] MCHC (RBC) [Mass/Vol] 33.4 g/dL Normal 32-36 [facility] Comment on above: Performed By: #### U PCR, CBC, BMP, 74621-7, 2777-1, 2731-8, 43298-7 #### [facility] ([id number]) [address], [address] [place] [address] MCV (RBC) [Entitic vol] 91 fL Normal 80-100 [facility] Comment on above: Performed By: #### U PCR, CBC, BMP, 73986-8, 2777-1, 2731-8, 16299-0 #### [facility] ([id number]) [address], [address] [place] [address] Platelet mean volume (Bld) [Entitic vol] 9.1 fL Normal 7-12 [facility] Comment on above: Performed By: #### U PCR, CBC, BMP, 67969-6, 2777-1, 2731-8, 54357-7 #### [facility] ([id number]) [address], [facility] [address] [place] [address] Platelets (Bld) [#/Vol] 188 10*3/uL Normal 150-450 [facility] Comment on above: Performed By: #### U PCR, CBC, BMP, 97534-6, 2777-1, 2731-8, 23094-8 #### [facility] ([id number]) [address] [address] [place] [address] RBC COUNT 3.70 X10E12/L Low 3.80-5.20 [facility] Comment on above: Performed By: #### U PCR, CBC, BMP, 13219-1, 2777-1, 2731-8, 41277-8 #### [facility] ([id number]) [address] [address] [place] [address] WBC (Bld) [#/Vol] 7.6 10*3/uL Normal 4.0-11.0 [facility] Comment on above: Performed By: #### U PCR, CBC, BMP, 51434-1, 2777-1, 2731-8, 95164-1 #### [facility] ([id number]) [address], [address] [place] [address] MAGNESIUMon 03-31-2024 Magnesium [Mass/Vol] 2.0 mg/dL Normal 1.8-2.6 [facility] Comment on above: Performed By: #### U PCR, CBC, BMP, 75856-8, 2776-07, 8, 91084-3 #### [facility] ([id number]) [address], [address] [place] [address] PHOSPHORUSon 03-31-2024 Phosphate [Mass/Vol] 4.0 mg/dL Normal 2.4-4.9 [facility] Comment on above: Performed By: #### U PCR, CBC, BMP, , 2776-07, 8, 51872-7 #### [facility] ([id number]) [address], [address] [place] [address] PROTEIN CREAT RATIOon 2023 RANDOM URINE PROTEIN 220 mg/L High <120 [facility] Comment on above: Performed By: #### U PCR, CBC, BMP, 39832-4, 2776-07, 8, 02496-5 #### [facility] ([id number]) [address], [address] [place] [address] U/PRO/EDUCATION ADMINISTRATOR RATIO CALC 0.30 High <0.2 [facility] Comment on above: Result Comment: Neph rotic Syndrome is associated with ratios >3.5 Performed By: #### U PCR, CBC, BMP, 87942-7, 2776-, 2730-8, 39486-2 #### [facility] ([id number]) [address], [address] [place] [address] URINE CREATININE,RDM 73.13 mg/dL Normal [facility] Comment on above: Performed By: #### U PCR, CBC, BMP, 88528-6, 2777-1, 2731-8, 73289-9 #### [facility] ([id number]) [address], [address] [place] [address] Parathyrin.intact [Mass/Vol] on 03-31-2024 PTH INTACT 21 pg/mL Normal 12-88 [facility] Comment on above: Performed By: #### U PCR, CBC, BMP, 00494-6, 7-1, 2731-8, 51744-3 #### [facility] ([id number]) [address], [address] [place] [address] URINALYSISon 03-31-2024 Bilirubin Ql (U) Negative Normal NEG [facility] Comment on above: Performed By: #### U A #### [facility] ([id number]) [address], [address] [place] [address] BLOOD/HGB Negative Normal NEG [facility] Comment on above: Performed By: #### U A #### [facility] ([id number]) [address], [address] [place] [address] Color (U) YELLOW Normal YELLOW [facility] Comment on above: Performed By: #### U A #### [facility] ([id number]) [address], [address] [place] [address] Glucose Ql (U) Negative Normal NEG [facility] Comment on above: Performed By: #### U A #### [facility] ([id number]) [address], [address] [place] [address] Ketones Ql (U) Negative Normal NEG [facility] Comment on above: Performed By: #### U A #### [facility] ([id number]) [address], [address] [place] [address] Leukocyte esterase Test strip Ql (U) Negative Normal NEG [facility] Comment on above: Performed By: #### U A #### [facility] ([id number]) [address], [address] [place] [address] MUCOUS PRESENT Abnormal NONE [facility] Comment on above: Performed By: #### U A #### [facility] ([id number]) [address], [address] [place] [address] Nitrite Ql (U) Negative Normal NEG [facility] Comment on above: Performed By: #### U A #### [facility] ([id number]) [address], [address] [place] [address] pH (U) 6.0 [pH] Normal 5.0-8.5 [facility] Comment on above: Performed By: #### U A #### [facility] ([id number]) [address] [facility], [address] [place] [address] Protein Ql (U) Trace Abnormal NEG [facility] Comment on above: Performed By: #### U A #### [facility] ([id number]) [address], [address] [place] [address] R.B.CELLS <1 Normal 0-5 [facility] Comment on above: Performed By: #### U A #### [facility] ([id number]) [address], [address] [place] [address] Specific gravity (U) [Rel density] 1.012 Normal 1.003-1.035 [facility] Comment on above: Performed By: #### U A #### [facility] ([id number]) [address], [address] [place] [address] SQUAMOUS EPITHELIUM 4 /hpf Normal 0-5 [facility] Comment on above: Performed By: #### U A #### [facility] ([id number]) [address], [address] [place] [address] TURBIDITY CLEAR Normal CLEAR [facility] Comment on above: Performed By: #### U A #### [facility] ([id number]) [address] [facility] [address] [place] [address] Urobilinogen (U) [Mass/Vol] mg/dL Normal <1.1 [facility] Comment on above: Performed By: #### U A #### [facility] ([id number]) [address] [facility], [facility] [address] [place] [address] W.B.CELLS 3 /hpf Normal 0-5 [facility] Comment on above: Performed By: #### U A #### [facility] ([id number]) [address] [facility] [address] [place] [address] Vitamin D+Metabolites [Mass/ Vol]on 03-31-2024 VITAMIN D 25 HYD TOT 41.5 ng/mL Normal 30-100 [facility] Comment on above: Result Comment: Vitamin D status 25 [place] Vitamin D Deficiency <20 ng/mL Insufficiency 20-29 ng/mL Sufficiency 30-100 ng/mL Toxicity >100 ng/mL NOTE: A pediatric reference range has not been established by the manufacturer's service representative of this kit. The [place] [employer] recommends a Vitamin D level of = or >20ng/mL in infants and children. Performed By: #### U PCR, CBC, BMP, 07150-1, 2777-1, 2731-8, 27826-2 #### [facility] ([id number]) [address] [facility] [address] [place] [address] URINALYSISon 01-21-2024 Bilirubin Ql (U) Negative Normal NEG [facility] Comment on above: Performed By: #### U A #### [facility] ([id number]) [address] [facility] [address] [place] [address] BLOOD/HGB Small Abnormal NEG [facility] Comment on above: Performed By: #### U A #### [facility] ([id number]) [address], [address] [place] [address] Color (U) YELLOW Normal YELLOW [facility] Comment on above: Performed By: #### U A #### [facility] ([id number]) [address], [address] [place] [address] Glucose Ql (U) Negative Normal NEG [facility] Comment on above: Performed By: #### U A #### [facility] ([id number]) [address] [facility], [address] [place] [address] Ketones Ql (U) Negative Normal NEG [facility] Comment on above: Performed By: #### U A #### [facility] ([id number]) [address], [address] [place] [address] Leukocyte esterase Test strip Ql (U) Large Abnormal NEG [facility] Comment on above: Performed By: #### U A #### [facility] ([id number]) [address], [address] [place] [address] Nitrite Ql (U) Negative Normal NEG [facility] Comment on above: Performed By: #### U A #### [facility] ([id number]) [address], [address] [place] [address] pH (U) 6.5 [pH] Normal 5.0-8.5 [facility] Comment on above: Performed By: #### U A #### [facility] ([id number]) [address], [address] [place] [address] Protein Ql (U) 30 mg/dL Abnormal NEG [facility] Comment on above: Performed By: #### U A #### [facility] ([id number]) [address], [address] [place] [address] R.B.CELLS 17 /hpf High 0-5 [facility] Comment on above: Performed By: #### U A #### [facility] ([id number]) [address] [address] [place] [address] Specific gravity (U) [Rel density] 1.014 Normal 1.003-1.035 [facility] Comment on above: Performed By: #### U A #### [facility] ([id number]) [address] [address] [place] [address] SQUAMOUS EPITHELIUM 2 /hpf Normal 0-5 [facility] Comment on above: Performed By: #### U A #### [facility] ([id number]) [address] [facility] [address] [place] [address] TURBIDITY CLOUDY Abnormal CLEAR [facility] Comment on above: Performed By: #### U A #### [facility] ([id number]) [address] [address] [place] [address] Urobilinogen (U) [Mass/Vol] mg/dL Normal <1.1 [facility] Comment on above: Performed By: #### U A #### [facility] ([id number]) [address] [facility] [address] [place] [address] W.B.CELLS >720 High 0-5 [facility] Comment on above: Performed By: #### U A #### [facility] ([id number]) [address] [address] [place] [address] URINE CULTUREon 01-21-2024 Bacteria identified Cx Nom (U) CULTURE RESULTS >100,000 ORGANISMS/ML NORMAL UROGENITAL ADE Normal [facility] Comment on above: Performed By: #### C BCA, BMP, 14900-3 #### [facility] ([id number]) [address] [address] Alanine aminotransferase [En zymatic activity/volume] in Serum or PlasmaOrdered By: Ankita Grant on 01-19-2024 ALT [Catalytic activity/Vol] 15 U/L 7-52 [facility] Albumin [Mass/volume] in Ser um or Plasma by Bromocresol green (BCG) dye binding methoOrdered By: Ankita Grant on 01-19-2024 Albumin BCG dye [Mass/Vol] 4.0 g/dL 3.5-5.7 [facility] Alkaline phosphatase [Enzyma tic activity/volume] in Serum or PlasmaOrdered By: Ankita Grant on 01-19-2024 ALP [Catalytic activity/Vol] 41 U/L 34-104 [facility] Aspartate aminotransferase [ Enzymatic activity/volume] in Serum or PlasmaOrdered By: Ankita Grant on 01-19-2024 AST [Catalytic activity/Vol] 18 U/L 13-39 [facility] Basophils Auto (Bld) [#/Vol] Ordered By: Ankita Grant on 01-19-2024 Basophils (Bld) [#/Vol] 0.1 10*3/uL 0.0-0.2 [facility] Basophils/100 WBC Auto (Bld) Ordered By: Ankita Grant on 01-19-2024 Basophils/100 WBC (Bld) 0.8 % . F [facility] Bilirubin.total [Mass/volume ] in Serum or PlasmaOrdered By: Ankita Grant on 01-19-2024 Bilirubin [Mass/Vol] 0.3 mg/dL 0.3-1.0 [facility] Calcium [Mass/volume] in Ser um or PlasmaOrdered By: Ankita Grant on 01-19-2024 Calcium [Mass/Vol] 9.6 mg/dL 8.6-10.3 [facility] Carbon dioxide, total [Moles /volume] in Serum or PlasmaOrdered By: Ankita Grant on 01-19-2024 CO2 [Moles/Vol] 23.8 mmol/L 21.0-31.0 [facility] Chloride [Moles/volume] in S jones or PlasmaOrdered By: Ankita Grant on 01-19-2024 Chloride [Moles/Vol] 107 mmol/L 98-107 [facility] Creatinine [Mass/volume] in Serum or PlasmaOrdered By: Ankita Grant on 01-19-2024 Creatinine [Mass/Vol] 2.97 mg/dL High 0.60-1.20 [facility] Eosinophils Auto (Bld) [#/Vo l]Ordered By: Ankita Grant on 01-19-2024 Eosinophils (Bld) [#/Vol] 0.3 10*3/uL 0.0-0.45 [facility] Eosinophils/100 WBC Auto (Bl d)Ordered By: Ankita Grant on 01-19-2024 Eosinophils/100 WBC (Bld) 3.3 % . [facility] Erythrocyte distribution wid th Auto (RBC) [Ratio]Ordered By: Ankita Grant on 01-19-2024 Erythrocyte distribution width (RBC) [Ratio] 13.2 % 11.9-15.3 [facility] Erythrocyte sedimentation ra te by Photometric methodOrdered By: Ankita Grant on 01-19-2024 ESR Photometric method (Bld) [Velocity] 53 mm/hr High 0-29 [facility] Globulin Calc (S) [Mass/Vol] Ordered By: Ankita Grant on 01-19-2024 Globulin (S) [Mass/Vol] 3.2 g/dL F [facility] Glucose [Mass/volume] in Ser um or PlasmaOrdered By: Ankita Grant on 01-19-2024 Glucose [Mass/Vol] 101 mg/dL High 70-100 [facility] Comment on above: ADA recommended refe rence rangeRandom Glucose Reference Range is dependent on time and content of last meal. Glucose of more than 200 mg/dL in a nonstressed, ambulatory subject supports the diagnosis of Diabetes Mellitus. Hematocrit Auto (Bld) [Volum e fraction]Ordered By: Ankita Grant on 01-19-2024 Hematocrit (Bld) [Volume fraction] 36.8 % 34.0-46.4 [facility] Hemoglobin [Mass/volume] in BloodOrdered By: Ankita Grant on 01-19-2024 Hemoglobin (Bld) [Mass/Vol] 12.2 g/dL 11.8-15.4 [facility] Leukocytes [#/volume] correc steven for nucleated erythrocytes in Blood by Automated counOrdered By: Ankita Grant on 01-19-2024 WBC corrected for nucl RBC Auto (Bld) [#/Vol] 8.2 10*3/uL 3.8-11.6 [facility] Lymphocytes Auto (Bld) [#/Vo l]Ordered By: Ankita Grant on 01-19-2024 Lymphocytes (Bld) [#/Vol] 1.4 10*3/uL 1.00-4.8 [facility] Lymphocytes/100 WBC Auto (Bl d)Ordered By: Ankita Grant on 01-19-2024 Lymphocytes/100 WBC (Bld) 17.4 % . [facility] MCH Auto (RBC) [Entitic mass ]Ordered By: Ankita Grant on 01-19-2024 MCH (RBC) [Entitic mass] 30.4 pg 24.7-34.3 [facility] MCHC Auto (RBC) [Mass/Vol]Or dered By: Ankita Grant on 01-19-2024 MCHC (RBC) [Mass/Vol] 33.0 g/dL 32.0-35.0 [facility] MCV Auto (RBC) [Entitic vol] Ordered By: Ankita Grant on 01-19-2024 MCV (RBC) [Entitic vol] 92.2 fL 80-100 [facility] Monocytes Auto (Bld) [#/Vol] Ordered By: Ankita Grant on 01-19-2024 Monocytes (Bld) [#/Vol] 1.2 10*3/uL High 0.0-0.8 [facility] Monocytes/100 WBC Auto (Bld) Ordered By: Ankita Grant on 01-19-2024 Monocytes/100 WBC (Bld) 14.2 % . [facility] Neutrophils Auto (Bld) [#/Vo l]Ordered By: Ankita Grant on 01-19-2024 Neutrophils (Bld) [#/Vol] 5.3 10*3/uL 1.8-7.7 [facility] Neutrophils/100 WBC Auto (Bl d)Ordered By: Ankita Grant on 01-19-2024 Neutrophils/100 WBC (Bld) 64.3 % . [facility] No Panel InformationOrdered By: Ankita Grant on 01-19-2024 Estimated GFR (CKD-EPI) 16.516 mL/Min [facility] Creatinine Clearance (Chem N/A [facility] Nucleated erythrocytes [Pres ence] in Blood by Automated countOrdered By: Ankita Grant on 01-19-2024 Nucleated RBC Auto Ql (Bld) 0.1 /100{WBC} 0-0.5 [facility] Platelet mean volume Auto (B ld) [Entitic vol]Ordered By: Ankita Grant on 01-19-2024 Platelet mean volume (Bld) [Entitic vol] 9.1 fL 6.3-10.7 [facility] Platelets Auto (Bld) [#/Vol] Ordered By: Ankita Grant on 01-19-2024 Platelets (Bld) [#/Vol] 188 10*3/uL 150-450 [facility] Potassium [Moles/volume] in Serum or PlasmaOrdered By: Ankita Grant on 01-19-2024 Potassium [Moles/Vol] 4.6 mmol/L 3.5-5.1 [facility] Protein [Mass/volume] in Ser um or PlasmaOrdered By: Ankita Grant on 01-19-2024 Protein [Mass/Vol] 7.2 g/dL 6.4-8.9 [facility] RBC Auto (Bld) [#/Vol]Ordere d By: Ankita Grant on 01-19-2024 RBC (Bld) [#/Vol] 3.99 10*6/uL 3.60-5.00 [facility] Serum or plasma albumin/glob ulin mass ratioOrdered By: Ankita Grant on 01-19-2024 Albumin/Globulin [Mass ratio] 1.3 {ratio} [facility] Serum or plasma anion gap de terminationOrdered By: Ankita Grant on 01-19-2024 Anion gap [Moles/Vol] 12.8 mmol/L 6.0-15.0 [facility] Sodium [Moles/volume] in Ser um or PlasmaOrdered By: Ankita Grant on 01-19-2024 Sodium [Moles/Vol] 139 mmol/L 136-145 [facility] Urea nitrogen [Mass/volume] in Serum or PlasmaOrdered By: Ankita Grant on 01-19-2024 Urea nitrogen [Mass/Vol] 36 mg/dL High 7-25 [facility] WBC Auto (Bld) [#/Vol]Ordere d By: Ankita Grant on 01-19-2024 WBC (Bld) [#/Vol] 8.2 10*3/uL 3.8-11.6 [facility] BASIC METABOLIC PANLon 10-26 Anion gap [Moles/Vol] 9 mmol/L Normal 5-15 [facility] Comment on above: Performed By: #### C BCA, BMP #### [facility] ([id number]) [address], [address] [place] [address] Calcium [Mass/Vol] 8.6 mg/dL Normal 8.5-10.5 [facility] Comment on above: Performed By: #### C BCA, BMP #### [facility] ([id number]) [address], [address] [place] [address] Chloride [Moles/Vol] 114 mmol/L High 98-[address] [facility] Comment on above: Performed By: #### C BCA, BMP #### [facility] ([id number]) [address], [address] [place] [address] CO2 [Moles/Vol] 20 mmol/L Low 22-32 [facility] Comment on above: Performed By: #### C BCA, BMP #### [facility] ([id number]) [address] [address] [place] [address] Creatinine [Mass/Vol] 1.76 mg/dL High 0.40-1.00 [facility] Comment on above: Result Comment: METH OD TRACEABLE TO IDMS STANDARD Performed By: #### C BCA, BMP #### [facility] ([id number]) [address] [address] [place] [address] GFR/1.73 sq M.predicted among non-blacks MDRD (S/P/Bld) [Vol rate/Area] 31 mL/min/{1.73_m2} Low >59 [facility] Comment on above: Result Comment: Reported eGFR is based on the CKD-EPI 2020 equation that does not use a race coefficient. Performed By: #### C BCA, BMP #### [facility] ([id number]) [address] [address] Glucose [Mass/Vol] 73 mg/dL Normal 65-99 [facility] Comment on above: Performed By: #### C BCA, BMP #### [facility] ([id number]) [address] [address] Potassium [Moles/Vol] 4.4 mmol/L Normal 3.5-5.0 [facility] Comment on above: Performed By: #### C BCA, BMP #### [facility] ([id number]) [address] [address] Sodium [Moles/Vol] 143 mmol/L Normal 134-146 [facility] Comment on above: Performed By: #### C BCA, BMP #### [facility] ([id number]) [address] [address] Urea nitrogen [Mass/Vol] 32 mg/dL High 5-27 [facility] Comment on above: Performed By: #### C BCA, BMP #### [facility] ([id number]) [address] [place] [address] CBC AND AUTO DIFFon 10-27-19 ABSOLUTE BASOPHIL 0.1 X10E9/L Normal 0.0-0.2 [facility] Comment on above: Performed By: #### C MATT, BMP #### [facility] ([id number]) [address], [address] [place] [address] ABSOLUTE NEUTROPHIL 6.8 X10E9/L High 1.5-6.[address] [facility] Comment on above: Performed By: #### C MATT, BMP #### [facility] ([id number]) [address], [address] [place] [address] Basophils/100 WBC (Bld) 0.7 % Normal [facility] Comment on above: Performed By: #### C MATT, BMP #### [facility] ([id number]) [address] [place] [address] Eosinophils (Bld) [#/Vol] 0.3 10*3/uL Normal 0.0-0.4 [facility] Comment on above: Performed By: #### C MATT, BMP #### [facility] ([id number]) [address] [place] [address] Eosinophils/100 WBC (Bld) 2.6 % Normal [facility] Comment on above: Performed By: #### C MATT, BMP #### [facility] ([id number]) [address] [address] [place] [address] Erythrocyte distribution width (RBC) [Ratio] 14.0 % Normal 11.5-15.0 [facility] Comment on above: Performed By: #### C MATT, BMP #### [facility] ([id number]) [address] [place] [address] Hematocrit (Bld) [Volume fraction] 34.2 % Low 35-47 [facility] Comment on above: Performed By: #### C BCA, BMP #### [facility] ([id number]) [address], [address] [place] [address] Hemoglobin (Bld) [Mass/Vol] 11.4 g/dL Low 11.7-15.5 [facility] Comment on above: Performed By: #### C BCA, BMP #### [facility] ([id number]) [address], [address] [place] [address] Lymphocytes (Bld) [#/Vol] 1.9 10*3/uL Normal 1.0-3.5 [facility] Comment on above: Performed By: #### C MATT, BMP #### [facility] ([id number]) [address], [address] [place] [address] Lymphocytes/100 WBC (Bld) 18.7 % Normal [facility] Comment on above: Performed By: #### C MATT, BMP #### [facility] ([id number]) [address] [place] [address] MCH (RBC) [Entitic mass] 31.0 pg Normal 27-34 [facility] Comment on above: Performed By: #### C BCA, BMP #### [facility] ([id number]) [address] [place] [address] MCHC (RBC) [Mass/Vol] 33.3 g/dL Normal 32-36 [facility] Comment on above: Performed By: #### C BCA, BMP #### [facility] ([id number]) [address] [place] [address] MCV (RBC) [Entitic vol] 93 fL Normal 80-100 [facility] Comment on above: Performed By: #### C BCA, BMP #### [facility] ([id number]) [address], [address] [place] [address] Monocytes (Bld) [#/Vol] 1.0 10*3/uL High 0-0.9 [facility] Comment on above: Performed By: #### C MATT, BMP #### [facility] ([id number]) [address], [address] [place] [address] Monocytes/100 WBC (Bld) 9.6 % Normal P [facility] Comment on above: Performed By: #### C MTAT, BMP #### [facility] ([id number]) [address] [place] [address] Neutrophils/100 WBC (Bld) 68.4 % Normal [facility] Comment on above: Performed By: #### C MATT, BMP #### [facility] ([id number]) [address] [place] [address] Platelet mean volume (Bld) [Entitic vol] 9.3 fL Normal 7-12 [facility] Comment on above: Performed By: #### C MATT, BMP #### [facility] ([id number]) [address], [address] [place] [address] Platelets (Bld) [#/Vol] 133 10*3/uL Low 150-450 [facility] Comment on above: Performed By: #### C MATT, BMP #### [facility] ([id number]) [address], [address] [place] [address] RBC COUNT 3.68 X10E12/L Low 3.80-5.20 [facility] Comment on above: Performed By: #### C BCA, BMP #### [facility] ([id number]) [address], [address] [place] [address] WBC (Bld) [#/Vol] 10.0 10*3/uL Normal 4.0-11.0 [facility] Comment on above: Performed By: #### C BCA, BMP #### [facility] ([id number]) [address], [address] [place] [address] BASIC METABOLIC PANLon 10-25 Anion gap [Moles/Vol] 8 mmol/L Normal 5-15 [facility] Comment on above: Performed By: #### C ZECHARIAH GUTIERREZ, 89882-3 #### [facility] ([id number]) [address], [address] [place] [address] Calcium [Mass/Vol] 8.7 mg/dL Normal 8.5-10.5 [facility] Comment on above: Performed By: #### Dorothea GUTIERREZ BMP, 27567-7 #### [facility] ([id number]) [address], [address] [place] [address] Chloride [Moles/Vol] 115 mmol/L High 98-[address] [facility] Comment on above: Performed By: #### ZECHARIAH Piedra BCA, 72641-1 #### [facility] ([id number]) [address], [address] [place] [address] CO2 [Moles/Vol] 22 mmol/L Normal 22-32 [facility] Comment on above: Performed By: #### ZECHARIAH Piedra BCA, 14452-1 #### [facility] ([id number]) [address], [address] [place] [address] Creatinine [Mass/Vol] 1.92 mg/dL High 0.40-1.00 [facility] Comment on above: Result Comment: METH OD TRACEABLE TO IDMS STANDARD Performed By: #### Dorothea GUTIERREZ BMP, 43290-9 #### [facility] ([id number]) [address], [address] [place] [address] GFR/1.73 sq M.predicted among non-blacks MDRD (S/P/Bld) [Vol rate/Area] 28 mL/min/{1.73_m2} Low >59 [facility] Comment on above: Result Comment: Reported eGFR is based on the CKD-EPI 2020 equation that does not use a race coefficient. Performed By: #### C ZECHARIAH GUTIERREZ, 49895-1 #### [facility] ([id number]) [address], [address] [place] [address] Glucose [Mass/Vol] 78 mg/dL Normal 65-99 [facility] Comment on above: Performed By: #### C ZECHARIAH GUTIERREZ, 62490-2 #### [facility] ([id number]) [address] [address] [place] [address] Potassium [Moles/Vol] 4.2 mmol/L Normal 3.5-5.0 [facility] Comment on above: Performed By: #### ZECHARIAH Piedra BCA, 64063-2 #### [facility] ([id number]) [address], [facility] [address] [place] [address] Sodium [Moles/Vol] 145 mmol/L Normal 134-146 [facility] Comment on above: Performed By: #### C ZECHARIAH GUTIERREZ, 71051-4 #### [facility] ([id number]) [address], [facility] [address] [place] [address] Urea nitrogen [Mass/Vol] 31 mg/dL High 5-27 [facility] Comment on above: Performed By: #### ZECHARIAH Piedra BCA, 25461-6 #### [facility] ([id number]) [address] [address] CBC AND AUTO DIFFon 10-26-19 24 ABSOLUTE BASOPHIL 0.1 X10E9/L Normal 0.0-0.2 [facility] Comment on above: Performed By: #### ZECHARIAH Piedra BCA, 72237-0 #### [facility] ([id number]) [address] [address] [place] [address] ABSOLUTE NEUTROPHIL 5.3 X10E9/L Normal 1.5-6.[address] [facility] Comment on above: Performed By: #### ZECHARIAH Piedra BCA, 89835-5 #### [facility] ([id number]) [address], [address] [place] [address] Basophils/100 WBC (Bld) 0.8 % Normal [facility] Comment on above: Performed By: #### C ZECHARIAH GUTIERREZ, 47215-6 #### [facility] ([id number]) [address], [address] [place] [address] Eosinophils (Bld) [#/Vol] 0.1 10*3/uL Normal 0.0-0.4 [facility] Comment on above: Performed By: #### ZECHARIAH Piedra BCA, 42868-4 #### [facility] ([id number]) [address] [place] [address] Eosinophils/100 WBC (Bld) 1.4 % Normal [facility] Comment on above: Performed By: #### ZECHARIAH Piedra BCA, 68468-1 #### [facility] ([id number]) [address], [address] [place] [address] Erythrocyte distribution width (RBC) [Ratio] 13.9 % Normal 11.5-15.0 [facility] Comment on above: Performed By: #### ZECHARIAH Piedra BCA, 19282-2 #### [facility] ([id number]) [address], [address] [place] [address] Hematocrit (Bld) [Volume fraction] 38.9 % Normal 35-47 [facility] Comment on above: Performed By: #### Dorothea GUTIERREZ, ZECHARIAH, 93270-4 #### [facility] ([id number]) [address], [address] [place] [address] Hemoglobin (Bld) [Mass/Vol] 12.8 g/dL Normal 11.7-15.5 [facility] Comment on above: Performed By: #### ZECHARIAH Piedra BCA, 16722-9 #### [facility] ([id number]) [address] [place] [address] Lymphocytes (Bld) [#/Vol] 2.5 10*3/uL Normal 1.0-3.5 [facility] Comment on above: Performed By: #### ZECHARIAH Piedra BCA, 64333-6 #### [facility] ([id number]) [address] [place] [address] Lymphocytes/100 WBC (Bld) 28.3 % Normal [facility] Comment on above: Performed By: #### ZECHARIAH Piedra BCA, 70088-1 #### [facility] ([id number]) [address], [facility] [address] [place] [address] MCH (RBC) [Entitic mass] 30.8 pg Normal 27-34 [facility] Comment on above: Performed By: #### ZECHARIAH Piedra BCA, 32394-0 #### [facility] ([id number]) [address], [address] [place] [address] MCHC (RBC) [Mass/Vol] 32.9 g/dL Normal 32-36 [facility] Comment on above: Performed By: #### ZECHARIAH Piedra BCA, 95073-0 #### [facility] ([id number]) [address], [facility] [address] [place] [address] MCV (RBC) [Entitic vol] 94 fL Normal 80-100 [facility] Comment on above: Performed By: #### ZECHARIAH Piedar BCA, 08366-3 #### [facility] ([id number]) [address], [address] [place] [address] Monocytes (Bld) [#/Vol] 0.8 10*3/uL Normal 0-0.9 [facility] Comment on above: Performed By: #### ZECHARIAH Piedra BCA, 67986-9 #### [facility] ([id number]) [address] [place] [address] Monocytes/100 WBC (Bld) 8.7 % Normal P [facility] Comment on above: Performed By: #### ZECHARIAH Piedra BCA, 62973-7 #### [facility] ([id number]) [address], [address] [place] [address] Neutrophils/100 WBC (Bld) 60.8 % Normal [facility] Comment on above: Performed By: #### ZECHARIAH Piedra BCA, 89628-5 #### [facility] ([id number]) [address], [address] [place] [address] Platelet mean volume (Bld) [Entitic vol] 9.1 fL Normal 7-12 [facility] Comment on above: Performed By: #### ZECHARIAH Piedra BCA, 83023-4 #### [facility] ([id number]) [address], [address] [place] [address] Platelets (Bld) [#/Vol] 146 10*3/uL Low 150-450 [facility] Comment on above: Performed By: #### ZECHARIAH Piedra BCA, 91731-1 #### [facility] ([id number]) [address], [address] [place] [address] RBC COUNT 4.15 X10E12/L Normal 3.80-5.20 [facility] Comment on above: Performed By: #### ZECHARIAH Piedra BCA, 02463-8 #### [facility] ([id number]) [address], [address] [place] [address] WBC (Bld) [#/Vol] 8.8 10*3/uL Normal 4.0-11.0 [facility] Comment on above: Performed By: #### ZECHARIAH Piedra BCA, 31139-5 #### [facility] ([id number]) [address], [address] [place] [address] Glucose Glucometer (BldC) [M ass/Vol]on 10-26-2023 Glucose [Mass/Vol] 76 mg/dL Normal 65-99 [facility] HGB A1C (GLYCO-HGB)on 2023 Glucose [Mass/Vol] 108 mg/dL Normal [facility] Comment on above: Performed By: #### ZECHARIAH Piedra BCA, 19649-2 #### [facility] ([id number]) [address], [address] [place] [address] HbA1c (Bld) [Mass fraction] 5.4 % Normal 4.4-5.6 [facility] Comment on above: Result Comment: NOTE ADA Guidelines Result HgbA1c Normal : less than 5.7 % Prediabetes : 5.7 % to 6.4 % Diabetes : > 6.4 % Use with caution in patients with abnormal hemoglobin variants as the half-life of red blood cells and in vivo glycation rates are affected. Performed By: #### ZECHARIAH Piedra BCA, 37776-3 #### [facility] ([id number]) [address], [address] [place] [address] Lipid 1996 panelon Cholesterol [Mass/Vol] 167 mg/dL Normal 150-200 [facility] Comment on above: Performed By: #### ZECHARIAH Piedra BCA, 64047-4 #### [facility] ([id number]) [address], [address] [place] [address] Cholesterol in HDL [Mass/Vol] 31 mg/dL Low >39 [facility] Comment on above: Result Comment: HDL <40 mg/dL - High Risk HDL > or = 40mg/dL- Desirable HDL >60 mg/dL - Negative Risk Performed By: #### ZECHARIAH Piedra BCA, 72189-1 #### [facility] ([id number]) [address], [address] [place] [address] Cholesterol in LDL [Mass/Vol] 79 mg/dL Normal <130 [facility] Comment on above: Result Comment: LDL <100 mg/dL - Desirable LDL >160 mg/dL - High Risk Performed By: #### C ZECHARIAH GUTIERREZ, 30722-1 #### [facility] ([id number]) [address], [address] [place] [address] Cholesterol in VLDL [Mass/Vol] 57 mg/dL High 0-30 [facility] Comment on above: Performed By: #### ZECHARIAH Piedra BCA, 46807-0 #### [facility] ([id number]) [address], [address] [place] [address] CHOLESTEROL:HDL 5.4 High 1.0-5.0 [facility] Comment on above: Performed By: #### ZECHARIAH Piedra BCA, 83937-4 #### [facility] ([id number]) [address], [address] [place] [address] Triglyceride [Mass/Vol] 287 mg/dL High 27-150 P [facility] Comment on above: Performed By: #### ZECHARIAH Piedra BCA, 22568-5 #### [facility] ([id number]) [address], [address] [place] [address] MR BRAIN WO CONTon MR BRAIN WO CONT MR BRAIN WO CONT EXAM:MR BRAIN WO CONT INDICATION: Neuro deficit, acute, stroke suspected COMPARISON: CT of the head dated 10/25/2023 TECHNIQUE: Multiplanar multisequence noncontrast MR sequences through the head/brain. BRAIN FINDINGS: Brain Parenchyma: Tiny acute to subacute infarcts within the left xie radiata, centrum semiovale, and cortical infarcts in the left frontal lobe and left parietal lobe. Dominant infarct within the left parietal lobe has associated susceptibility possibly related to a punctate hemorrhage. No large territorial infarct. No mass, mass effect, or midline shift. Periventricular subcortical T2/FLAIR signal hyperintensities likely related to chronic microangiopathic change. Ventricles and Sulci: Normal for age. Extra-Axial Spaces: No extra-axial fluid collection. Intracranial Flow-Voids: Arterial and venous sinus flow voids appear normal. Orbits: Normal Paranasal Sinuses: Polypoid mucosal thickening right maxillary sinus Mastoid Air Cells: Trace right effusion Cranium: Normal Extracranial Soft Tissues: Normal IMPRESSION: Scattered tiny acute to subacute left cerebral infarcts. Dominant infarct within the left centrum semiovale has associated susceptibility along the lateral margin possibly related to punctate microhemorrhage. THIS REPORT CONTAINS A SIGNIFICANT RESULT AND/OR RECOMMENDATION, WHICH REQUIRES THE ATTENTION OF THE LICENSED CAREGIVER RESPONSIBLE FOR THIS PATIENT. THEREFORE, I SPECIFICALLY DESIGNATED THIS REPORT TO BE TELEPHONED BY THE RADIOLOGY DEPARTMENT. FINDINGS WERE INSTRUCTED TO BE CALLED TO THE CLINICAL SERVICE ON 10/26/2023 7:08 AM Finalized by Livan Collins on 10/26/2023 7:10 AM Normal [facility] aPTT Coag (PPP) [Time]on aPTT Coag (Bld) [Time] 30 s Normal 26-37 [facility] Comment on above: Performed By: #### 1 4979-9 #### [facility] ([id number]) [address] [place] [address] Alanine aminotransferase [En zymatic activity/volume] in Serum or PlasmaOrdered By: Ankita Grant on 10-22-2023 ALT [Catalytic activity/Vol] 13 U/L 7-52 [facility] Albumin [Mass/volume] in Ser um or Plasma by Bromocresol green (BCG) dye binding methoOrdered By: Ankita Grant on 10-22-2023 Albumin BCG dye [Mass/Vol] 4.1 g/dL 3.5-5.7 [facility] Alkaline phosphatase [Enzyma tic activity/volume] in Serum or PlasmaOrdered By: Ankita Grant on 10-22-2023 ALP [Catalytic activity/Vol] 42 U/L 34-104 [facility] Aspartate aminotransferase [ Enzymatic activity/volume] in Serum or PlasmaOrdered By: Ankita Grant on 10-22-2023 AST [Catalytic activity/Vol] 12 U/L Low 13-39 [facility] Basophils Auto (Bld) [#/Vol] Ordered By: Ankita Grant on 10-22-2023 Basophils (Bld) [#/Vol] 0.1 10*3/uL 0.0-0.2 [facility] Basophils/100 WBC Auto (Bld) Ordered By: Ankita Grant on 10-22-2023 Basophils/100 WBC (Bld) 0.5 % . [facility] Bilirubin.total [Mass/volume ] in Serum or PlasmaOrdered By: Ankita Grant on 10-22-2023 Bilirubin [Mass/Vol] 0.2 mg/dL Low 0.3-1.0 [facility] Calcium [Mass/volume] in Ser um or PlasmaOrdered By: Ankita Grant on 10-22-2023 Calcium [Mass/Vol] 8.5 mg/dL Low 8.6-10.3 [facility] Carbon dioxide, total [Moles /volume] in Serum or PlasmaOrdered By: Ankita Grant on 10-22-2023 CO2 [Moles/Vol] 18.4 mmol/L Low 21.0-31.0 [facility] Chloride [Moles/volume] in S jones or PlasmaOrdered By: Anikta Grant on 10-22-2023 Chloride [Moles/Vol] 114 mmol/L High 98[facility] [facility] Complete Blood Count Auto Di ffon 10-22-2023 Basophils (Bld) [#/Vol] 0.1 10*3/uL Normal 0.0-0.2 [facility] Comment on above: Performed By: #### D IFF CBC, ESR, CMP #### [facility] [address] Basophils/100 WBC (Bld) 0.5 % Normal . [facility] Comment on above: Performed By: #### D IFF CBC, ESR, CMP #### [address] Eosinophils (Bld) [#/Vol] 0.0 10*3/uL Normal 0.0-0.45 [facility] Comment on above: Performed By: #### D IFF CBC, ESR, CMP #### [address] Eosinophils/100 WBC (Bld) 0.2 % Normal . [facility] Comment on above: Performed By: #### D IFF CBC, ESR, CMP #### [address] Erythrocyte distribution width (RBC) [Ratio] 13.8 % Normal 11.9-15.3 [facility] Comment on above: Performed By: #### D IFF CBC, ESR, CMP #### [address] Hematocrit (Bld) [Volume fraction] 39.7 % Normal 34.0-46.4 [facility] Comment on above: Performed By: #### D IFF CBC, ESR, CMP #### [address] Hemoglobin (Bld) [Mass/Vol] 12.9 g/dL Normal 11.8-15.4 [facility] Comment on above: Performed By: #### D IFF CBC, ESR, CMP #### [address] Lymphocytes (Bld) [#/Vol] 2.4 10*3/uL Normal 1.00-4.8 [facility] Comment on above: Performed By: #### D IFF CBC, ESR, CMP #### [address] Lymphocytes/100 WBC (Bld) 14.6 % Normal . [facility] Comment on above: Performed By: #### D IFF CBC, ESR, CMP #### [address] MCH (RBC) [Entitic mass] 30.0 pg Normal 24.7-34.3 [facility] Comment on above: Performed By: #### D IFF CBC, ESR, CMP #### [address] MCV (RBC) [Entitic vol] 92.7 fL Normal 80-100 [facility] Comment on above: Performed By: #### D IFF CBC, ESR, CMP #### [address] Mean Corpuscular HGB Conc 32.4 g/dL Normal 32.0-35.0 [facility] Comment on above: Performed By: #### D IFF CBC, ESR, CMP #### [address] Monocytes (Bld) [#/Vol] 1.1 10*3/uL High 0.0-0.8 [facility] Comment on above: Performed By: #### D IFF CBC, ESR, CMP #### [address] Monocytes/100 WBC (Bld) 6.8 % Normal . [facility] Comment on above: Performed By: #### D IFF CBC, ESR, CMP #### [address] Neutrophils (Bld) [#/Vol] 12.9 10*3/uL High 1.8-7.7 [facility] Comment on above: Performed By: #### D IFF CBC, ESR, CMP #### [address] Neutrophils/100 WBC (Bld) 77.9 % Normal . [facility] Comment on above: Performed By: #### D IFF CBC, ESR, CMP #### [address] NRBC% 0.1 /100{WBC} Normal 0-0.5 [facility] Comment on above: Performed By: #### D IFF CBC, ESR, CMP #### [place] [address] [place] Platelet mean volume (Bld) [Entitic vol] 9.7 fL Normal 6.3-10.7 [facility] Comment on above: Performed By: #### D IFF CBC, ESR, CMP #### [facility] [address] Platelets (Bld) [#/Vol] 197 10*3/uL Normal 150-450 [facility] Comment on above: Performed By: #### D IFF CBC, ESR, CMP #### [address] RBC (Bld) [#/Vol] 4.28 10*6/uL Normal 3.60-5.00 [facility] Comment on above: Performed By: #### D IFF CBC, ESR, CMP #### [address] WBC (Bld) [#/Vol] 16.6 10*3/uL High 3.8-11.6 [facility] Comment on above: Performed By: #### D IFF CBC, ESR, CMP #### [address] Comprehensive Metabolic Pane nellie 10-22-2023 Albumin [Mass/Vol] 4.1 g/dL Normal 3.5-5.7 [facility] Comment on above: Performed By: #### C MP, CBC, ESR #### [address] Albumin/Globulin [Mass ratio] 1.3 {ratio} Normal [facility] Comment on above: Performed By: #### C MP, CBC, ESR #### [address] ALP [Catalytic activity/Vol] 42 U/L Normal 34-104 [facility] Comment on above: Result Comment: PERF ORMED BY: [place] [address] PATHOLOGIST TACTICAL DEBRIEF[employer] OFFICER ANDREW ZELAYA M.D. Performed By: #### C MP, CBC, ESR #### [facility] [address] ALT [Catalytic activity/Vol] 13 U/L Normal 7-52 [facility] Comment on above: Performed By: #### C MP, CBC, ESR #### [facility] [address] Anion gap [Moles/Vol] 9.5 mmol/L Normal 6.0-15.0 [facility] Comment on above: Performed By: #### C MP, CBC, ESR #### [facility] [address] AST [Catalytic activity/Vol] 12 U/L Low 13-39 [facility] Comment on above: Performed By: #### C MP, CBC, ESR #### [facility] [address] Bilirubin [Mass/Vol] 0.2 mg/dL Low 0.3-1.0 [facility] Comment on above: Performed By: #### C MP, CBC, ESR #### [facility] [address] [place] [address] [place] Calcium [Mass/Vol] 8.5 mg/dL Low 8.6-10.3 [facility] Comment on above: Performed By: #### C MP, CBC, ESR #### [address] Chloride [Moles/Vol] 114 mmol/L High 98-107 [facility] Comment on above: Performed By: #### C MP, CBC, ESR #### [facility] [address] [place] [address] [place] CO2 [Moles/Vol] 18.4 mmol/L Low 21.0-31.0 [facility] Comment on above: Performed By: #### C MP, CBC, ESR #### [facility] [address] Creatinine [Mass/Vol] 2.21 mg/dL High 0.60-1.20 [facility] Comment on above: Performed By: #### C MP, CBC, ESR #### [facility] [address] [place] [address] [place] GFR/1.73 sq M.predicted MDRD (S/P/Bld) [Vol rate/Area] 23.695 mL/min/{1.73_m2} Normal [facility] Comment on above: Performed By: #### C MP, CBC, ESR #### [address] Globulin (S) [Mass/Vol] 3.2 g/dL Normal T he [facility] Comment on above: Performed By: #### C MP, CBC, ESR #### [address] Glucose [Mass/Vol] 77 mg/dL Normal 70-100 [facility] Comment on above: Result Comment: [place] Glucose Reference Range is dependent on time and content of last meal. Glucose of more than 200 mg/dL in a nonstressed, ambulatory subject supports the diagnosis of Diabetes Mellitus. ADA recommended reference range Performed By: #### C MP, CBC, ESR #### [address] Potassium [Moles/Vol] 3.9 mmol/L Normal 3.5-5.1 [facility] Comment on above: Performed By: #### C MP, CBC, ESR #### [address] Protein [Mass/Vol] 7.3 g/dL Normal 6.4-8.9 [facility] Comment on above: Performed By: #### C MP, CBC, ESR #### [place] [address] [place] Sodium [Moles/Vol] 138 mmol/L Normal 136-145 [facility] Comment on above: Performed By: #### C MP, CBC, ESR #### [address] Urea nitrogen [Mass/Vol] 35 mg/dL High 7-25 [facility] Comment on above: Performed By: #### C MP, CBC, ESR #### [address] [place] [address] [facility] Creatinine [Mass/volume] in Serum or PlasmaOrdered By: Ankita Grant on 10-22-2023 Creatinine [Mass/Vol] 2.21 mg/dL High 0.60-1.20 [facility] Eosinophils Auto (Bld) [#/Vo l]Ordered By: Ankita Grant on 10-22-2023 Eosinophils (Bld) [#/Vol] 0.0 10*3/uL 0.0-0.45 [facility] Eosinophils/100 WBC Auto (Bl d)Ordered By: Ankita Grant on 10-22-2023 Eosinophils/100 WBC (Bld) 0.2 % . [facility] Erythrocyte Sedimentation Ra katherine 10-22-2023 ESR (Bld) [Velocity] 29 mm/h Normal 0-29 [facility] Comment on above: Result Comment: PERF ORMED BY: [place] [address] PATHOLOGIST TACTICAL DEBRIEFER OFFICER ANDREW ZELAYA M.D. Performed By: #### D IFF CBC, ESR, CMP #### [address] Erythrocyte distribution wid th Auto (RBC) [Ratio]Ordered By: Ankita Grant on 10-22-2023 Erythrocyte distribution width (RBC) [Ratio] 13.8 % 11.9-15.3 [facility] Erythrocyte sedimentation ra te by Photometric methodOrdered By: Ankita Grant on 10-22-2023 ESR Photometric method (Bld) [Velocity] 29 mm/hr 0-29 [facility] Globulin Calc (S) [Mass/Vol] Ordered By: Ankita Grant on 10-22-2023 Globulin (S) [Mass/Vol] 3.2 g/dL [facility] Glucose [Mass/volume] in Ser um or PlasmaOrdered By: Ankita Grant on 10-22-2023 Glucose [Mass/Vol] 77 mg/dL 70-100 [facility] Comment on above: ADA recommended refe rence rangeRandom Glucose Reference Range is dependent on time and content of last meal. Glucose of more than 200 mg/dL in a nonstressed, ambulatory subject supports the diagnosis of Diabetes Mellitus. Hematocrit Auto (Bld) [Volum e fraction]Ordered By: Ankita Grant on 10-22-2023 Hematocrit (Bld) [Volume fraction] 39.7 % 34.0-46.4 [facility] Hemoglobin [Mass/volume] in BloodOrdered By: Ankita Grant on 10-22-2023 Hemoglobin (Bld) [Mass/Vol] 12.9 g/dL 11.8-15.4 [facility] Leukocytes [#/volume] correc steven for nucleated erythrocytes in Blood by Automated counOrdered By: Ankita Grant on 10-22-2023 WBC corrected for nucl RBC Auto (Bld) [#/Vol] 16.6 10*3/uL High 3.8-11.6 [facility] Lymphocytes Auto (Bld) [#/Vo l]Ordered By: Ankita Grant on 10-22-2023 Lymphocytes (Bld) [#/Vol] 2.4 10*3/uL 1.00-4.8 [facility] Lymphocytes/100 WBC Auto (Bl d)Ordered By: Ankita Grant on 10-22-2023 Lymphocytes/100 WBC (Bld) 14.6 % . [facility] MCH Auto (RBC) [Entitic mass ]Ordered By: Ankita Grant on 10-22-2023 MCH (RBC) [Entitic mass] 30.0 pg 24.7-34.3 [facility] MCHC Auto (RBC) [Mass/Vol]Or dered By: Ankita Grant on 10-22-2023 MCHC (RBC) [Mass/Vol] 32.4 g/dL 32.0-35.0 [facility] MCV Auto (RBC) [Entitic vol] Ordered By: Ankita Grant on 10-22-2023 MCV (RBC) [Entitic vol] 92.7 fL 80-100 [facility] Monocytes Auto (Bld) [#/Vol] Ordered By: Ankita Grant on 10-22-2023 Monocytes (Bld) [#/Vol] 1.1 10*3/uL High 0.0-0.8 [facility] Monocytes/100 WBC Auto (Bld) Ordered By: Ankita Grant on 10-22-2023 Monocytes/100 WBC (Bld) 6.8 % . [facility] Neutrophils Auto (Bld) [#/Vo l]Ordered By: Ankita Grant on 10-22-2023 Neutrophils (Bld) [#/Vol] 12.9 10*3/uL High 1.8-7.7 [facility] Neutrophils/100 WBC Auto (Bl d)Ordered By: Ankita Grant on 10-22-2023 Neutrophils/100 WBC (Bld) 77.9 % . [facility] No Panel InformationOrdered By: Ankita Grant on 10-22-2023 Estimated GFR (CKD-EPI) 23.695 mL/Min [facility] Creatinine Clearance (Chem N/A [facility] Nucleated erythrocytes [Pres ence] in Blood by Automated countOrdered By: Ankita Grant on 10-22-2023 Nucleated RBC Auto Ql (Bld) 0.1 /100{WBC} 0-0.5 [facility] Platelet mean volume Auto (B ld) [Entitic vol]Ordered By: Ankita Grant on 10-22-2023 Platelet mean volume (Bld) [Entitic vol] 9.7 fL 6.3-10.7 [facility] Platelets Auto (Bld) [#/Vol] Ordered By: Ankita Grant on 10-22-2023 Platelets (Bld) [#/Vol] 197 10*3/uL 150-450 [facility] Potassium [Moles/volume] in Serum or PlasmaOrdered By: Ankita Grant on 10-22-2023 Potassium [Moles/Vol] 3.9 mmol/L 3.5-5.1 [facility] Protein [Mass/volume] in Ser um or PlasmaOrdered By: Ankita Grant on 10-22-2023 Protein [Mass/Vol] 7.3 g/dL 6.4-8.9 [facility] RBC Auto (Bld) [#/Vol]Ordere d By: Ankita Grant on 10-22-2023 RBC (Bld) [#/Vol] 4.28 10*6/uL 3.60-5.00 [facility] Serum or plasma albumin/glob ulin mass ratioOrdered By: Ankita Grant on 10-22-2023 Albumin/Globulin [Mass ratio] 1.3 {ratio} [facility] Serum or plasma anion gap de terminationOrdered By: Ankita Grant on 10-22-2023 Anion gap [Moles/Vol] 9.5 mmol/L 6.0-15.0 [facility] Sodium [Moles/volume] in Ser um or PlasmaOrdered By: Ankita Grant on 10-22-2023 Sodium [Moles/Vol] 138 mmol/L 136-145 [facility] Urea nitrogen [Mass/volume] in Serum or PlasmaOrdered By: Ankita Grant on 10-22-2023 Urea nitrogen [Mass/Vol] 35 mg/dL High 7-25 [facility] WBC Auto (Bld) [#/Vol]Ordere d By: Ankita Grant on 10-22-2023 WBC (Bld) [#/Vol] 16.6 10*3/uL High 3.8-11.6 [facility] Alanine aminotransferase [En zymatic activity/volume] in Serum or PlasmaOrdered By: Ankita Grant on 07-16-2023 ALT [Catalytic activity/Vol] 19 U/L 7-52 [facility] Albumin [Mass/volume] in Ser um or Plasma by Bromocresol green (BCG) dye binding methoOrdered By: Ankita Grant on 07-16-2023 Albumin BCG dye [Mass/Vol] 4.3 g/dL 3.5-5.7 [facility] Alkaline phosphatase [Enzyma tic activity/volume] in Serum or PlasmaOrdered By: Ankita Grant on 07-16-2023 ALP [Catalytic activity/Vol] 45 U/L 34-104 [facility] Aspartate aminotransferase [ Enzymatic activity/volume] in Serum or PlasmaOrdered By: Ankita Grant on 07-16-2023 AST [Catalytic activity/Vol] 17 U/L 13-39 [facility] Basophils Auto (Bld) [#/Vol] Ordered By: Ankita Grant on 07-16-2023 Basophils (Bld) [#/Vol] 0.1 10*3/uL 0.0-0.2 [facility] Basophils/100 WBC Auto (Bld) Ordered By: Ankita Grant on 07-16-2023 Basophils/100 WBC (Bld) 0.8 % . [facility] Bilirubin.total [Mass/volume ] in Serum or PlasmaOrdered By: Ankita Grant on 07-16-2023 Bilirubin [Mass/Vol] 0.3 mg/dL 0.3-1.0 [facility] Calcium [Mass/volume] in Ser um or PlasmaOrdered By: Ankita Grant on 07-16-2023 Calcium [Mass/Vol] 8.8 mg/dL 8.6-10.3 [facility] Carbon dioxide, total [Moles /volume] in Serum or PlasmaOrdered By: Ankita Grant on 07-16-2023 CO2 [Moles/Vol] 21.0 mmol/L 21.0-31.0 [facility] Chloride [Moles/volume] in S jones or PlasmaOrdered By: Ankita Grant on 07-16-2023 Chloride [Moles/Vol] 108 mmol/L 98-107 [facility] Complete Blood Count Auto Di ffon 07-16-2023 Basophils (Bld) [#/Vol] 0.1 10*3/uL Normal 0.0-0.2 [facility] Comment on above: Performed By: #### E SR, CBC, CMP #### [facility] [address] [place] [address] [place] Basophils/100 WBC (Bld) 0.8 % Normal . [facility] [place] [facility] Comment on above: Performed By: #### E SR, CBC, CMP #### [facility] [address] [place] [id number] [place] Eosinophils (Bld) [#/Vol] 0.2 10*3/uL Normal 0.0-0.45 [facility] Comment on above: Performed By: #### E SR, CBC, CMP #### [address] Eosinophils/100 WBC (Bld) 2.8 % Normal . [facility] Comment on above: Performed By: #### E SR, CBC, CMP #### [address] Erythrocyte distribution width (RBC) [Ratio] 13.9 % Normal 11.9-15.3 [facility] Comment on above: Performed By: #### E SR, CBC, CMP #### [address] Hematocrit (Bld) [Volume fraction] 41.7 % Normal 34.0-46.4 [facility] Comment on above: Performed By: #### E SR, CBC, CMP #### [address] Hemoglobin (Bld) [Mass/Vol] 13.9 g/dL Normal 11.8-15.4 [facility] Comment on above: Performed By: #### E SR, CBC, CMP #### [address] Lymphocytes (Bld) [#/Vol] 1.5 10*3/uL Normal 1.00-4.8 [facility] Comment on above: Performed By: #### E SR, CBC, CMP #### [address] Lymphocytes/100 WBC (Bld) 19.4 % Normal . [facility] Comment on above: Performed By: #### E SR, CBC, CMP #### [address] MCH (RBC) [Entitic mass] 30.6 pg Normal 24.7-34.3 [facility] Comment on above: Performed By: #### E SR, CBC, CMP #### [address] MCV (RBC) [Entitic vol] 91.8 fL Normal 80-100 T [facility] Comment on above: Performed By: #### E SR, CBC, CMP #### [address] Mean Corpuscular HGB Conc 33.3 g/dL Normal 32.0-35.0 [facility] Comment on above: Performed By: #### E SR, CBC, CMP #### [address] Monocytes (Bld) [#/Vol] 0.9 10*3/uL High 0.0-0.8 [facility] Comment on above: Performed By: #### E SR, CBC, CMP #### [address] Monocytes/100 WBC (Bld) 12.4 % Normal . [facility] Comment on above: Performed By: #### E SR, CBC, CMP #### [address] Neutrophils (Bld) [#/Vol] 4.9 10*3/uL Normal 1.8-7.7 [facility] Comment on above: Performed By: #### E SR, CBC, CMP #### [address] Neutrophils/100 WBC (Bld) 64.6 % Normal . [facility] Comment on above: Performed By: #### E SR, CBC, CMP #### [address] NRBC% 0.0 /100{WBC} Normal 0-0.5 [facility] Comment on above: Performed By: #### E SR, CBC, CMP #### [facility] [address] [place] [address] Platelet mean volume (Bld) [Entitic vol] 9.5 fL Normal 6.3-10.7 [facility] Comment on above: Performed By: #### E SR, CBC, CMP #### [place] [address] [place] Platelets (Bld) [#/Vol] 150 10*3/uL Normal 150-450 [facility] Comment on above: Performed By: #### E SR, CBC, CMP #### [address] RBC (Bld) [#/Vol] 4.54 10*6/uL Normal 3.60-5.00 [facility] Comment on above: Performed By: #### E SR, CBC, CMP #### [address] WBC (Bld) [#/Vol] 7.6 10*3/uL Normal 3.8-11.6 [facility] Comment on above: Performed By: #### E SR, CBC, CMP #### [address] Comprehensive Metabolic Pane nellie 07-16-2023 Albumin [Mass/Vol] 4.3 g/dL Normal 3.5-5.7 [facility] Comment on above: Performed By: #### E SR, CBC, CMP #### [address] Albumin/Globulin [Mass ratio] 1.4 {ratio} Normal [facility] Comment on above: Performed By: #### E SR, CBC, CMP #### [address] ALP [Catalytic activity/Vol] 45 U/L Normal 34-104 [facility] Comment on above: Result Comment: PERF ORMED BY: [place] [address] PATHOLOGIST TACTICAL DEBRIEFER OFFICER ANDREW ZELAYA M.D. Performed By: #### E SR, CBC, CMP #### [address] ALT [Catalytic activity/Vol] 19 U/L Normal 7-52 [facility] Comment on above: Performed By: #### E SR, CBC, CMP #### [address] Anion gap [Moles/Vol] 12.4 mmol/L Normal 6.0-15.0 [facility] Comment on above: Performed By: #### E SR, CBC, CMP #### [address] AST [Catalytic activity/Vol] 17 U/L Normal 13-39 [facility] Comment on above: Performed By: #### E SR, CBC, CMP #### [facility] [address] [place] [address] Bilirubin [Mass/Vol] 0.3 mg/dL Normal 0.3-1.0 [facility] Comment on above: Performed By: #### E SR, CBC, CMP #### [address] Calcium [Mass/Vol] 8.8 mg/dL Normal 8.6-10.3 [facility] Comment on above: Performed By: #### E SR, CBC, CMP #### [address] Chloride [Moles/Vol] 108 mmol/L High 98-107 [facility] Comment on above: Performed By: #### E SR, CBC, CMP #### [address] CO2 [Moles/Vol] 21.0 mmol/L Normal 21.0-31.0 [facility] Comment on above: Performed By: #### E SR, CBC, CMP #### [facility] [address] [place] [address] Creatinine [Mass/Vol] 2.03 mg/dL High 0.60-1.20 [facility] Comment on above: Performed By: #### E SR, CBC, CMP #### [facility] [address] [place] [address] [place] GFR/1.73 sq M.predicted MDRD (S/P/Bld) [Vol rate/Area] 26.238 mL/min/{1.73_m2} Normal [facility] Comment on above: Performed By: #### E SR, CBC, CMP #### [address] Globulin (S) [Mass/Vol] 3.0 g/dL Normal T he [facility] Comment on above: Performed By: #### E SR, CBC, CMP #### [address] Glucose [Mass/Vol] 79 mg/dL Normal 70-100 [facility] Comment on above: Result Comment: [facility] Glucose Reference Range is dependent on time and content of last meal. Glucose of more than 200 mg/dL in a nonstressed, ambulatory subject supports the diagnosis of Diabetes Mellitus. ADA recommended reference range Performed By: #### E SR, CBC, CMP #### [address] Potassium [Moles/Vol] 4.4 mmol/L Normal 3.5-5.1 [facility] Comment on above: Performed By: #### E SR, CBC, CMP #### [address] Protein [Mass/Vol] 7.3 g/dL Normal 6.4-8.9 [facility] Comment on above: Performed By: #### E SR, CBC, CMP #### [address] Sodium [Moles/Vol] 137 mmol/L Normal 136-145 [facility] Comment on above: Performed By: #### E SR, CBC, CMP #### [address] Urea nitrogen [Mass/Vol] 34 mg/dL High 7-25 [facility] Comment on above: Performed By: #### E SR, CBC, CMP #### [address] Creatinine [Mass/volume] in Serum or PlasmaOrdered By: Ankita Grant on 07-16-2023 Creatinine [Mass/Vol] 2.03 mg/dL 0.60-1.20 [facility] Eosinophils Auto (Bld) [#/Vo l]Ordered By: Ankita Grant on 07-16-2023 Eosinophils (Bld) [#/Vol] 0.2 10*3/uL 0.0-0.45 [facility] Eosinophils/100 WBC Auto (Bl d)Ordered By: Ankita Grant on 07-16-2023 Eosinophils/100 WBC (Bld) 2.8 % . [facility] Erythrocyte Sedimentation Ra katherine 07-16-2023 ESR (Bld) [Velocity] 48 mm/h High 0-29 [facility] Comment on above: Result Comment: PERF ORMED BY: [facility] [address] [place] [address] PATHOLOGIST TACTICAL DEBRIEFER OFFICER ANDREW ZELAYA M.D. Performed By: #### E SR, CBC, CMP #### [address] Erythrocyte distribution wid th Auto (RBC) [Ratio]Ordered By: Ankita Grant on 07-16-2023 Erythrocyte distribution width (RBC) [Ratio] 13.9 % 11.9-15.3 [facility] Erythrocyte sedimentation ra te by Photometric methodOrdered By: Ankita Grant on 07-16-2023 ESR Photometric method (Bld) [Velocity] 48 mm/hr 0-29 [facility] Globulin Calc (S) [Mass/Vol] Ordered By: Ankita Grant on 07-16-2023 Globulin (S) [Mass/Vol] 3.0 g/dL [facility] Glucose [Mass/volume] in Ser um or PlasmaOrdered By: Ankita Grant on 07-16-2023 Glucose [Mass/Vol] 79 mg/dL 70-100 [facility] Comment on above: ADA recommended refe rence rangeRandom Glucose Reference Range is dependent on time and content of last meal. Glucose of more than 200 mg/dL in a nonstressed, ambulatory subject supports the diagnosis of Diabetes Mellitus. Hematocrit Auto (Bld) [Volum e fraction]Ordered By: Ankita Grant on 07-16-2023 Hematocrit (Bld) [Volume fraction] 41.7 % 34.0-46.4 [facility] Hemoglobin [Mass/volume] in BloodOrdered By: Ankita Grant on 07-16-2023 Hemoglobin (Bld) [Mass/Vol] 13.9 g/dL 11.8-15.4 [facility] Leukocytes [#/volume] correc steven for nucleated erythrocytes in Blood by Automated counOrdered By: Ankita Grant on 07-16-2023 WBC corrected for nucl RBC Auto (Bld) [#/Vol] 7.6 10*3/uL 3.8-11.6 [facility] Lymphocytes Auto (Bld) [#/Vo l]Ordered By: Ankita Grant on 07-16-2023 Lymphocytes (Bld) [#/Vol] 1.5 10*3/uL 1.00-4.8 [facility] Lymphocytes/100 WBC Auto (Bl d)Ordered By: Ankita Grant on 07-16-2023 Lymphocytes/100 WBC (Bld) 19.4 % . [facility] MCH Auto (RBC) [Entitic mass ]Ordered By: Ankita Grant on 07-16-2023 MCH (RBC) [Entitic mass] 30.6 pg 24.7-34.3 [facility] MCHC Auto (RBC) [Mass/Vol]Or dered By: Ankita Grant on 07-16-2023 MCHC (RBC) [Mass/Vol] 33.3 g/dL 32.0-35.0 [facility] MCV Auto (RBC) [Entitic vol] Ordered By: Ankita Grant on 07-16-2023 MCV (RBC) [Entitic vol] 91.8 fL 80-100 [facility] Monocytes Auto (Bld) [#/Vol] Ordered By: Ankita Grant on 07-16-2023 Monocytes (Bld) [#/Vol] 0.9 10*3/uL 0.0-0.8 [facility] Monocytes/100 WBC Auto (Bld) Ordered By: Ankita Grant on 07-16-2023 Monocytes/100 WBC (Bld) 12.4 % . [facility] Neutrophils Auto (Bld) [#/Vo l]Ordered By: Ankita Grant on 07-16-2023 Neutrophils (Bld) [#/Vol] 4.9 10*3/uL 1.8-7.7 [facility] Neutrophils/100 WBC Auto (Bl d)Ordered By: Ankita Grant on 07-16-2023 Neutrophils/100 WBC (Bld) 64.6 % . [facility] No Panel InformationOrdered By: Ankita Grant on 07-16-2023 Estimated GFR (CKD-EPI) 26.238 mL/Min [facility] Creatinine Clearance (Chem N/A [facility] Nucleated erythrocytes [Pres ence] in Blood by Automated countOrdered By: Ankita Grant on 07-16-2023 Nucleated RBC Auto Ql (Bld) 0.0 /100{WBC} 0-0.5 [facility] Platelet mean volume Auto (B ld) [Entitic vol]Ordered By: Ankita Grant on 07-16-2023 Platelet mean volume (Bld) [Entitic vol] 9.5 fL 6.3-10.7 [facility] Platelets Auto (Bld) [#/Vol] Ordered By: Ankita Grant on 07-16-2023 Platelets (Bld) [#/Vol] 150 10*3/uL 150-450 [facility] Potassium [Moles/volume] in Serum or PlasmaOrdered By: Ankita Grant on 07-16-2023 Potassium [Moles/Vol] 4.4 mmol/L 3.5-5.1 [facility] Protein [Mass/volume] in Ser um or PlasmaOrdered By: Ankita Grant on 07-16-2023 Protein [Mass/Vol] 7.3 g/dL 6.4-8.9 [facility] RBC Auto (Bld) [#/Vol]Ordere d By: Ankita Grant on 07-16-2023 RBC (Bld) [#/Vol] 4.54 10*6/uL 3.60-5.00 [facility] Serum or plasma albumin/glob ulin mass ratioOrdered By: Ankita Grant on 07-16-2023 Albumin/Globulin [Mass ratio] 1.4 {ratio} [facility] Serum or plasma anion gap de terminationOrdered By: Ankita Grant on 07-16-2023 Anion gap [Moles/Vol] 12.4 mmol/L 6.0-15.0 [facility] Sodium [Moles/volume] in Ser um or PlasmaOrdered By: Ankita Grant on 07-16-2023 Sodium [Moles/Vol] 137 mmol/L 136-145 [facility] Urea nitrogen [Mass/volume] in Serum or PlasmaOrdered By: Anikta Grant on 07-16-2023 Urea nitrogen [Mass/Vol] 34 mg/dL 7-25 [facility] WBC Auto (Bld) [#/Vol]Ordere d By: Ankita Grant on 07-16-2023 WBC (Bld) [#/Vol] 7.6 10*3/uL 3.8-11.6 [facility] Alanine aminotransferase [En zymatic activity/volume] in Serum or PlasmaOrdered By: David Devlin on 03-19-2023 ALT [Catalytic activity/Vol] 14 U/L 7-52 [facility] Albumin [Mass/volume] in Ser um or Plasma by Bromocresol green (BCG) dye binding methoOrdered By: David Devlin on 03-19-2023 Albumin BCG dye [Mass/Vol] 4.1 g/dL 3.5-5.7 [facility] Alkaline phosphatase [Enzyma tic activity/volume] in Serum or PlasmaOrdered By: David Devlin on 03-19-2023 ALP [Catalytic activity/Vol] 52 U/L 34-104 [facility] Anisocytosis LM Ql (Bld)Orde red By: David Devlin on 03-19-2023 Anisocytosis Ql (Bld) Slight [facility] Aspartate aminotransferase [ Enzymatic activity/volume] in Serum or PlasmaOrdered By: David Devlin on 03-19-2023 AST [Catalytic activity/Vol] 15 U/L 13-39 [facility] Basophils Auto (Bld) [#/Vol] Ordered By: David Devlin on 03-19-2023 Basophils (Bld) [#/Vol] N/A [facility] Basophils/100 WBC Auto (Bld) Ordered By: David Devlin on 03-19-2023 Basophils/100 WBC (Bld) N/A [facility] Basophils/100 WBC Manual cnt (Bld)Ordered By: David Devlin on 03-19-2023 Basophils/100 WBC (Bld) 1 % 0-2 [facility] Bilirubin.total [Mass/volume ] in Serum or PlasmaOrdered By: David Devlin on 03-19-2023 Bilirubin [Mass/Vol] 0.3 mg/dL 0.3-1.0 [facility] Erick cells [Presence] in Blo od by Light microscopyOrdered By: David Devlin on 03-19-2023 Erick cells LM Ql (Bld) Slight [facility] Calcium [Mass/volume] in Ser um or PlasmaOrdered By: David Devlin on 03-19-2023 Calcium [Mass/Vol] 8.8 mg/dL 8.6-10.3 [facility] Carbon dioxide, total [Moles /volume] in Serum or PlasmaOrdered By: David Devlin on 03-19-2023 CO2 [Moles/Vol] 22.8 mmol/L 21.0-31.0 [facility] Chloride [Moles/volume] in S jones or PlasmaOrdered By: David Devlin on 03-19-2023 Chloride [Moles/Vol] 109 mmol/L 98-107 [facility] Comprehensive Metabolic Pane nellie 03-19-2023 Albumin [Mass/Vol] 4.1 g/dL Normal 3.5-5.7 [facility] Comment on above: Performed By: #### D IFF CBC, ESR, CMP #### [facility] [address] [place] [address] [place] Albumin/Globulin [Mass ratio] 1.3 {ratio} Normal [facility] Comment on above: Performed By: #### D IFF CBC, ESR, CMP #### [facility] [address] [place] [id number] [place] ALP [Catalytic activity/Vol] 52 U/L Normal 34-104 [facility] Comment on above: Result Comment: PERF ORMED BY: [place] [address] PATHOLOGIST TACTICAL [employer] OFFICER ANDREW ZELAYA M.D. Performed By: #### D IFF CBC, ESR, CMP #### [address] ALT [Catalytic activity/Vol] 14 U/L Normal 7-52 [facility] Comment on above: Performed By: #### D IFF CBC, ESR, CMP #### [address] Anion gap [Moles/Vol] 8.9 mmol/L Normal 6.0-15.0 [facility] Comment on above: Performed By: #### D IFF CBC, ESR, CMP #### [address] AST [Catalytic activity/Vol] 15 U/L Normal 13-39 [facility] Comment on above: Performed By: #### D IFF CBC, ESR, CMP #### [address] Bilirubin [Mass/Vol] 0.3 mg/dL Normal 0.3-1.0 [facility] Comment on above: Performed By: #### D IFF CBC, ESR, CMP #### [address] Calcium [Mass/Vol] 8.8 mg/dL Normal 8.6-10.3 [facility] Comment on above: Performed By: #### D IFF CBC, ESR, CMP #### [place] [address] [place] Chloride [Moles/Vol] 109 mmol/L High 98-107 [facility] Comment on above: Performed By: #### D IFF CBC, ESR, CMP #### [address] CO2 [Moles/Vol] 22.8 mmol/L Normal 21.0-31.0 [facility] Comment on above: Performed By: #### D IFF CBC, ESR, CMP #### [address] Creatinine [Mass/Vol] 1.95 mg/dL High 0.60-1.20 [facility] Comment on above: Performed By: #### D IFF CBC, ESR, CMP #### [address] GFR/1.73 sq M.predicted MDRD (S/P/Bld) [Vol rate/Area] 27.535 mL/min/{1.73_m2} Normal [facility] Comment on above: Performed By: #### D IFF CBC, ESR, CMP #### [address] Globulin (S) [Mass/Vol] 3.1 g/dL Normal T [facility] Comment on above: Performed By: #### D IFF CBC, ESR, CMP #### [address] Glucose [Mass/Vol] 76 mg/dL Normal 70-100 [facility] Comment on above: Result Comment: [facility] Glucose Reference Range is dependent on time and content of last meal. Glucose of more than 200 mg/dL in a nonstressed, ambulatory subject supports the diagnosis of Diabetes Mellitus. ADA recommended reference range Performed By: #### D IFF CBC, ESR, CMP #### [address] Potassium [Moles/Vol] 4.7 mmol/L Normal 3.5-5.1 [facility] Comment on above: Performed By: #### D IFF CBC, ESR, CMP #### [address] Protein [Mass/Vol] 7.2 g/dL Normal 6.4-8.9 [facility] Comment on above: Performed By: #### D IFF CBC, ESR, CMP #### [address] Sodium [Moles/Vol] 136 mmol/L Normal 136-145 [facility] Comment on above: Performed By: #### D IFF CBC, ESR, CMP #### [facility] [address] Urea nitrogen [Mass/Vol] 22 mg/dL Normal 7-25 [facility] Comment on above: Performed By: #### D IFF CBC, ESR, CMP #### [address] Creatinine [Mass/volume] in Serum or PlasmaOrdered By: David Devlin on 03-19-2023 Creatinine [Mass/Vol] 1.95 mg/dL 0.60-1.20 [facility] Diff and CBCon 03-19-2023 Anisocytosis Ql (Bld) Slight Normal [facility] Comment on above: Performed By: #### D IFF CBC, ESR, CMP #### [address] Basophils/100 WBC (Bld) 1 % Normal 0-2 [facility] Comment on above: Performed By: #### D IFF CBC, ESR, CMP #### [address] Crenated RBC Slight Normal [facility] Comment on above: Performed By: #### D IFF CBC, ESR, CMP #### [address] Eosinophils/100 WBC (Bld) 4 % High 1-3 [facility] Comment on above: Performed By: #### D IFF CBC, ESR, CMP #### [address] Erythrocyte distribution width (RBC) [Ratio] 13.9 % Normal 11.9-15.3 [facility] Comment on above: Performed By: #### D IFF CBC, ESR, CMP #### [address] Hematocrit (Bld) [Volume fraction] 43.6 % Normal 34.0-46.4 [facility] Comment on above: Performed By: #### D IFF CBC, ESR, CMP #### [address] [place] [address] [place] Hemoglobin (Bld) [Mass/Vol] 14.2 g/dL Normal 11.8-15.4 [facility] Comment on above: Performed By: #### D IFF CBC, ESR, CMP #### [address] Lymphocytes/100 WBC (Bld) 20 % Normal 18-42 [facility] Comment on above: Performed By: #### D IFF CBC, ESR, CMP #### [address] MCH (RBC) [Entitic mass] 30.5 pg Normal 24.7-34.3 [facility] Comment on above: Performed By: #### D IFF CBC, ESR, CMP #### [address] MCV (RBC) [Entitic vol] 93.3 fL Normal 80-100 [facility] Comment on above: Performed By: #### D IFF CBC, ESR, CMP #### [address] Mean Corpuscular HGB Conc 32.6 g/dL Normal 32.0-35.0 [facility] Comment on above: Performed By: #### D IFF CBC, ESR, CMP #### [address] Microcytosis Slight Normal [facility] Comment on above: Performed By: #### D IFF CBC, ESR, CMP #### [place] [address] [place] Monocytes/100 WBC (Bld) 9 % Normal 2-11 [facility] Comment on above: Performed By: #### D IFF CBC, ESR, CMP #### [address] Ovalocytes Slight Normal [facility] Comment on above: Performed By: #### D IFF CBC, ESR, CMP #### [address] Platelet Estimate Normal Normal Normal [facility] Comment on above: Performed By: #### D IFF CBC, ESR, CMP #### [facility] [address] Platelet mean volume (Bld) [Entitic vol] 10.3 fL Normal 6.3-10.7 [facility] Comment on above: Performed By: #### D IFF CBC, ESR, CMP #### [facility] [address] Platelet Morphology Normal Normal Normal [facility] Comment on above: Performed By: #### D IFF CBC, ESR, CMP #### [facility] [address] Platelets (Bld) [#/Vol] 169 10*3/uL Normal 150-450 [facility] Comment on above: Performed By: #### D IFF CBC, ESR, CMP #### [address] RBC (Bld) [#/Vol] 4.68 10*6/uL Normal 3.60-5.00 [facility] Comment on above: Performed By: #### D IFF CBC, ESR, CMP #### [address] Segmented neutrophils/100 WBC (Bld) 67 % Normal 50-70 [facility] Comment on above: Performed By: #### D IFF CBC, ESR, CMP #### [address] WBC (Bld) [#/Vol] 7.0 10*3/uL Normal 3.8-11.6 [facility] Comment on above: Performed By: #### D IFF CBC, ESR, CMP #### [place] [address] [place] Eosinophils Auto (Bld) [#/Vo l]Ordered By: David Devlin on 03-19-2023 Eosinophils (Bld) [#/Vol] N/A [facility] Eosinophils/100 WBC Auto (Bl d)Ordered By: David Devlin on 03-19-2023 Eosinophils/100 WBC (Bld) N/A [facility] Eosinophils/100 WBC Manual c nt (Bld)Ordered By: David Devlin on 03-19-2023 Eosinophils/100 WBC (Bld) 4 % 1-3 [facility] Erythrocyte Sedimentation Ra katherine 03-19-2023 ESR (Bld) [Velocity] 49 mm/h High 0-29 [facility] Comment on above: Result Comment: PERF ORMED BY: [place] [address] PATHOLOGIST TACTICAL [employer] OFFICER ANDREW ZELAYA M.D. Performed By: #### D IFF CBC, ESR, CMP #### [address] Erythrocyte distribution wid th Auto (RBC) [Ratio]Ordered By: David Devlin on 03-19-2023 Erythrocyte distribution width (RBC) [Ratio] 13.9 % 11.9-15.3 [facility] Erythrocyte sedimentation ra te by Photometric methodOrdered By: David Devlin on 03-19-2023 ESR Photometric method (Bld) [Velocity] 49 mm/hr 0-29 [facility] Globulin Calc (S) [Mass/Vol] Ordered By: David Devlin on 03-19-2023 Globulin (S) [Mass/Vol] 3.1 g/dL [facility] Glucose [Mass/volume] in Ser um or PlasmaOrdered By: David Devlin on 03-19-2023 Glucose [Mass/Vol] 76 mg/dL 70-100 [facility] Comment on above: ADA recommended refe rence rangeRandom Glucose Reference Range is dependent on time and content of last meal. Glucose of more than 200 mg/dL in a nonstressed, ambulatory subject supports the diagnosis of Diabetes Mellitus. Hematocrit Auto (Bld) [Volum e fraction]Ordered By: David Devlin on 03-19-2023 Hematocrit (Bld) [Volume fraction] 43.6 % 34.0-46.4 [facility] Hemoglobin [Mass/volume] in BloodOrdered By: David Devlin on 03-19-2023 Hemoglobin (Bld) [Mass/Vol] 14.2 g/dL 11.8-15.4 [facility] Leukocytes [#/volume] correc steven for nucleated erythrocytes in Blood by Automated counOrdered By: David Devlin on 03-19-2023 WBC corrected for nucl RBC Auto (Bld) [#/Vol] 7.0 10*3/uL 3.8-11.6 [facility] Lymphocytes Auto (Bld) [#/Vo l]Ordered By: David Devlin on 03-19-2023 Lymphocytes (Bld) [#/Vol] N/A [facility] Lymphocytes/100 WBC Auto (Bl d)Ordered By: David Devlin on 03-19-2023 Lymphocytes/100 WBC (Bld) N/A [facility] Lymphocytes/100 WBC Manual c nt (Bld)Ordered By: David Devlin on 03-19-2023 Lymphocytes/100 WBC (Bld) 20 % 18-42 [facility] MCH Auto (RBC) [Entitic mass ]Ordered By: David Devlin on 03-19-2023 MCH (RBC) [Entitic mass] 30.5 pg 24.7-34.3 [facility] MCHC Auto (RBC) [Mass/Vol]Or dered By: David Devlin on 03-19-2023 MCHC (RBC) [Mass/Vol] 32.6 g/dL 32.0-35.0 [facility] MCV Auto (RBC) [Entitic vol] Ordered By: David Devlin on 03-19-2023 MCV (RBC) [Entitic vol] 93.3 fL 80-100 [facility] Microcytes LM Ql (Bld)Ordere d By: David Devlin on 03-19-2023 Microcytes Ql (Bld) Slight [facility] Monocytes Auto (Bld) [#/Vol] Ordered By: David Devlin on 03-19-2023 Monocytes (Bld) [#/Vol] N/A [facility] Monocytes/100 WBC Auto (Bld) Ordered By: David Devlin on 03-19-2023 Monocytes/100 WBC (Bld) N/A [facility] Monocytes/100 WBC Manual cnt (Bld)Ordered By: David Devlin on 03-19-2023 Monocytes/100 WBC (Bld) 9 % 2-11 [facility] Neutrophils Auto (Bld) [#/Vo l]Ordered By: David Devlin on 03-19-2023 Neutrophils (Bld) [#/Vol] N/A [facility] Neutrophils/100 WBC Auto (Bl d)Ordered By: David Devlin on 03-19-2023 Neutrophils/100 WBC (Bld) N/A [facility] No Panel InformationOrdered By: David Devlin on 03-19-2023 Estimated GFR (CKD-EPI) 27.535 mL/Min [facility] Creatinine Clearance (Chem N/A [facility] Nucleated erythrocytes [Pres ence] in Blood by Automated countOrdered By: David Devlin on 03-19-2023 Nucleated RBC Auto Ql (Bld) N/A [facility] Ovalocyte detectionOrdered B y: David Devlin on 03-19-2023 Ovalocytes LM Ql (Bld) Slight [facility] Platelet adequacy [Presence] in Blood by Light microscopyOrdered By: David Devlin on 03-19-2023 Platelets LM Ql (Bld) Normal Normal [facility] Platelet mean volume Auto (B ld) [Entitic vol]Ordered By: David Devlin on 03-19-2023 Platelet mean volume (Bld) [Entitic vol] 10.3 fL 6.3-10.7 [facility] Platelet morphology finding [Identifier] in BloodOrdered By: David Devlin on 03-19-2023 Platelet morphology finding Nom (Bld) Normal Normal [facility] Platelets Auto (Bld) [#/Vol] Ordered By: David Devlin on 03-19-2023 Platelets (Bld) [#/Vol] 169 10*3/uL 150-450 [facility] Potassium [Moles/volume] in Serum or PlasmaOrdered By: David Devlin on 03-19-2023 Potassium [Moles/Vol] 4.7 mmol/L 3.5-5.1 [facility] Protein [Mass/volume] in Ser um or PlasmaOrdered By: David Devlin on 03-19-2023 Protein [Mass/Vol] 7.2 g/dL 6.4-8.9 [facility] RBC Auto (Bld) [#/Vol]Ordere d By: David Devlin on 03-19-2023 RBC (Bld) [#/Vol] 4.68 10*6/uL 3.60-5.00 [facility] RBC morphologyOrdered By: Daily Devlin on 03-19-2023 RBC morphology finding Nom (Bld) N/A [facility] Segmented neutrophils/100 WB C Manual cnt (Bld)Ordered By: David Devlin on 03-19-2023 Segmented neutrophils/100 WBC (Bld) 67 % 50-70 [facility] Serum or plasma albumin/glob ulin mass ratioOrdered By: David Devlin on 03-19-2023 Albumin/Globulin [Mass ratio] 1.3 {ratio} [facility] Serum or plasma anion gap de terminationOrdered By: David Devlin on 03-19-2023 Anion gap [Moles/Vol] 8.9 mmol/L 6.0-15.0 [facility] Sodium [Moles/volume] in Ser um or PlasmaOrdered By: David Devlin on 03-19-2023 Sodium [Moles/Vol] 136 mmol/L 136-145 [facility] Urea nitrogen [Mass/volume] in Serum or PlasmaOrdered By: David Devlin on 03-19-2023 Urea nitrogen [Mass/Vol] 22 mg/dL 7-25 [facility] WBC Auto (Bld) [#/Vol]Ordere d By: David Devlin on 03-19-2023 WBC (Bld) [#/Vol] 7.0 10*3/uL 3.8-11.6 [facility] Alanine aminotransferase [En zymatic activity/volume] in Serum or PlasmaOrdered By: Ankita Grant on 12-25-2022 ALT [Catalytic activity/Vol] 13 U/L 7-52 [facility] Albumin [Mass/volume] in Ser um or Plasma by Bromocresol green (BCG) dye binding methoOrdered By: Ankita Grant on 12-25-2022 Albumin BCG dye [Mass/Vol] 4.2 g/dL 3.5-5.7 [facility] Alkaline phosphatase [Enzyma tic activity/volume] in Serum or PlasmaOrdered By: Ankita Grant on 12-25-2022 ALP [Catalytic activity/Vol] 52 U/L 34-104 [facility] Aspartate aminotransferase [ Enzymatic activity/volume] in Serum or PlasmaOrdered By: Ankita Grant on 12-25-2022 AST [Catalytic activity/Vol] 15 U/L 13-39 [facility] Basophils Auto (Bld) [#/Vol] Ordered By: Ankita Grant on 12-25-2022 Basophils (Bld) [#/Vol] 0.1 10*3/uL 0.0-0.2 [facility] Basophils/100 WBC Auto (Bld) Ordered By: Ankita Grant on 12-25-2022 Basophils/100 WBC (Bld) 1.1 % . [facility] Bilirubin.total [Mass/volume ] in Serum or PlasmaOrdered By: Ankita Grant on 12-25-2022 Bilirubin [Mass/Vol] 0.3 mg/dL 0.3-1.0 [facility] Calcium [Mass/volume] in Ser um or PlasmaOrdered By: Ankita Grant on 12-25-2022 Calcium [Mass/Vol] 8.8 mg/dL 8.6-10.3 [facility] Carbon dioxide, total [Moles /volume] in Serum or PlasmaOrdered By: Ankita Grant on 12-25-2022 CO2 [Moles/Vol] 22.2 mmol/L 21.0-31.0 [facility] Chloride [Moles/volume] in S jones or PlasmaOrdered By: Ankita Grant on 12-25-2022 Chloride [Moles/Vol] 112 mmol/L 98-107 [facility] Complete Blood Count Auto Di ffon 12-25-2022 Basophils (Bld) [#/Vol] 0.1 10*3/uL Normal 0.0-0.2 [facility] Comment on above: Performed By: #### C BC, CMP, ESR #### [facility] [address] [place] [address] [place] Basophils/100 WBC (Bld) 1.1 % Normal . [facility] Comment on above: Performed By: #### C BC, CMP, ESR #### [facility] [address] [place] [address] [place] Eosinophils (Bld) [#/Vol] 0.2 10*3/uL Normal 0.0-0.45 [facility] Comment on above: Performed By: #### C BC, CMP, ESR #### [facility] [address] [place] [address] [place] Eosinophils/100 WBC (Bld) 2.9 % Normal . [facility] Comment on above: Performed By: #### C BC, CMP, ESR #### [address] Erythrocyte distribution width (RBC) [Ratio] 14.3 % Normal 11.9-15.3 [facility] Comment on above: Performed By: #### C BC, CMP, ESR #### [address] Hematocrit (Bld) [Volume fraction] 42.0 % Normal 34.0-46.4 [facility] Comment on above: Performed By: #### C BC, CMP, ESR #### [facility] [address] [place] [address] [place] Hemoglobin (Bld) [Mass/Vol] 13.8 g/dL Normal 11.8-15.4 [facility] Comment on above: Performed By: #### C BC, CMP, ESR #### [facility] [address] [place] [address] [place] Lymphocytes (Bld) [#/Vol] 1.9 10*3/uL Normal 1.00-4.8 [facility] Comment on above: Performed By: #### C BC, CMP, ESR #### [facility] [address] [place] [address] [place] Lymphocytes/100 WBC (Bld) 24.2 % Normal . [facility] Comment on above: Performed By: #### C BC, CMP, ESR #### [address] MCH (RBC) [Entitic mass] 30.6 pg Normal 24.7-34.3 [facility] Comment on above: Performed By: #### C BC, CMP, ESR #### [address] MCV (RBC) [Entitic vol] 92.9 fL Normal 80-100 [facility] Comment on above: Performed By: #### C BC, CMP, ESR #### [address] Mean Corpuscular HGB Conc 32.9 g/dL Normal 32.0-35.0 [facility] Comment on above: Performed By: #### C BC, CMP, ESR #### [address] Monocytes (Bld) [#/Vol] 0.8 10*3/uL Normal 0.0-0.8 [facility] Comment on above: Performed By: #### C BC, CMP, ESR #### [address] Monocytes/100 WBC (Bld) 10.6 % Normal . [facility] Comment on above: Performed By: #### C BC, CMP, ESR #### [address] Neutrophils (Bld) [#/Vol] 4.8 10*3/uL Normal 1.8-7.7 [facility] Comment on above: Performed By: #### C BC, CMP, ESR #### [address] Neutrophils/100 WBC (Bld) 61.2 % Normal . [facility] Comment on above: Performed By: #### C BC, CMP, ESR #### [address] NRBC% 0.1 /100{WBC} Normal 0-0.5 [facility] Comment on above: Performed By: #### C BC, CMP, ESR #### [address] Platelet mean volume (Bld) [Entitic vol] 9.8 fL Normal 6.3-10.7 [facility] Comment on above: Performed By: #### C BC, CMP, ESR #### [address] Platelets (Bld) [#/Vol] 156 10*3/uL Normal 150-450 [facility] Comment on above: Performed By: #### C BC, CMP, ESR #### [address] RBC (Bld) [#/Vol] 4.51 10*6/uL Normal 3.60-5.00 [facility] Comment on above: Performed By: #### C BC, CMP, ESR #### [address] WBC (Bld) [#/Vol] 7.9 10*3/uL Normal 3.8-11.6 [facility] Comment on above: Performed By: #### C BC, CMP, ESR #### [address] Comprehensive Metabolic Pane [facility] 12-25-2022 Albumin [Mass/Vol] 4.2 g/dL Normal 3.5-5.7 [facility] Comment on above: Performed By: #### C BC, CMP, ESR #### [address] Albumin/Globulin [Mass ratio] 1.4 {ratio} Normal [facility] Comment on above: Performed By: #### C BC, CMP, ESR #### [address] ALP [Catalytic activity/Vol] 52 U/L Normal 34-104 [facility] Comment on above: Result Comment: PERF ORMED BY: [place] [address] PATHOLOGIST TACTICAL DEBRIEFER OFFICER ANDREW ZELAYA M.D. Performed By: #### C BC, CMP, ESR #### [facility] [address] [id number] [place] ALT [Catalytic activity/Vol] 13 U/L Normal 7-52 [facility] Comment on above: Performed By: #### C BC, CMP, ESR #### [facility] [address] [place] [address] [place] Anion gap [Moles/Vol] 9.2 mmol/L Normal 6.0-15.0 [facility] Comment on above: Performed By: #### C BC, CMP, ESR #### [facility] [address] [phone] [place] AST [Catalytic activity/Vol] 15 U/L Normal 13-39 [facility] Comment on above: Performed By: #### C BC, CMP, ESR #### [facility] [address] [id number] [place] Bilirubin [Mass/Vol] 0.3 mg/dL Normal 0.3-1.0 [facility] Comment on above: Performed By: #### C BC, CMP, ESR #### [facility] [address] [id number] [place] Calcium [Mass/Vol] 8.8 mg/dL Normal 8.6-10.3 [facility] Comment on above: Performed By: #### C BC, CMP, ESR #### [facility] [address] [id number] [place] Chloride [Moles/Vol] 112 mmol/L High 98-107 [facility] Comment on above: Performed By: #### C BC, CMP, ESR #### [facility] [address] [place] [address] [place] CO2 [Moles/Vol] 22.2 mmol/L Normal 21.0-31.0 The [facility] Comment on above: Performed By: #### C BC, CMP, ESR #### [facility] [address] [place] [address] [place] Creatinine [Mass/Vol] 1.92 mg/dL High 0.60-1.20 [facility] Comment on above: Performed By: #### C BC, CMP, ESR #### [facility] [address] [id number] [place] GFR/1.73 sq M.predicted MDRD (S/P/Bld) [Vol rate/Area] 28.227 mL/min/{1.73_m2} Normal [facility] Comment on above: Performed By: #### C BC, CMP, ESR #### [facility] [address] [id number] [place] Globulin (S) [Mass/Vol] 2.9 g/dL Normal T he [facility] Comment on above: Performed By: #### C BC, CMP, ESR #### [facility] [address] Glucose [Mass/Vol] 83 mg/dL Normal 70-100 [facility] Comment on above: Result Comment: [place] Glucose Reference Range is dependent on time and content of last meal. Glucose of more than 200 mg/dL in a nonstressed, ambulatory subject supports the diagnosis of Diabetes Mellitus. ADA recommended reference range Performed By: #### C BC, CMP, ESR #### [facility] [address] [id number] [place] Potassium [Moles/Vol] 4.4 mmol/L Normal 3.5-5.1 [facility] Comment on above: Performed By: #### C BC, CMP, ESR #### [facility] [address] [id number] [place] Protein [Mass/Vol] 7.1 g/dL Normal 6.4-8.9 [facility] Comment on above: Performed By: #### C BC, CMP, ESR #### [facility] [address] [id number] [place] Sodium [Moles/Vol] 139 mmol/L Normal 136-145 [facility] Comment on above: Performed By: #### C BC, CMP, ESR #### [facility] [address] [id number] [facility] Urea nitrogen [Mass/Vol] 24 mg/dL Normal 7-25 [facility] Comment on above: Performed By: #### C BC, CMP, ESR #### [facility] [address] Creatinine [Mass/volume] in Serum or PlasmaOrdered By: Ankita Grant on 12-25-2022 Creatinine [Mass/Vol] 1.92 mg/dL 0.60-1.20 [facility] Eosinophils Auto (Bld) [#/Vo l]Ordered By: Ankita Grant on 12-25-2022 Eosinophils (Bld) [#/Vol] 0.2 10*3/uL 0.0-0.45 [facility] Eosinophils/100 WBC Auto (Bl d)Ordered By: Ankita Grant on 12-25-2022 Eosinophils/100 WBC (Bld) 2.9 % . [facility] Erythrocyte Sedimentation Ra katherine 12-25-2022 ESR (Bld) [Velocity] 33 mm/h High 0-29 [facility] Comment on above: Result Comment: PERF ORMED BY: [address] [place] [address] PATHOLOGIST TACTICAL DEBRIEFER OFFICER ANDREW ZELAYA M.D. Performed By: #### C BC, CMP, ESR #### [facility] [address] Erythrocyte distribution wid th Auto (RBC) [Ratio]Ordered By: Ankita Grant on 12-25-2022 Erythrocyte distribution width (RBC) [Ratio] 14.3 % 11.9-15.3 [facility] Erythrocyte sedimentation ra te by Photometric methodOrdered By: Ankita Grant on 12-25-2022 ESR Photometric method (Bld) [Velocity] 33 mm/hr 0-29 [facility] Globulin Calc (S) [Mass/Vol] Ordered By: Aknita Grant on 12-25-2022 Globulin (S) [Mass/Vol] 2.9 g/dL [facility] Glucose [Mass/volume] in Ser um or PlasmaOrdered By: Ankita Grant on 12-25-2022 Glucose [Mass/Vol] 83 mg/dL 70-100 [facility] Comment on above: ADA recommended refe rence rangeRandom Glucose Reference Range is dependent on time and content of last meal. Glucose of more than 200 mg/dL in a nonstressed, ambulatory subject supports the diagnosis of Diabetes Mellitus. Hematocrit Auto (Bld) [Volum e fraction]Ordered By: Ankita Grant on 12-25-2022 Hematocrit (Bld) [Volume fraction] 42.0 % 34.0-46.4 [facility] Hemoglobin [Mass/volume] in BloodOrdered By: Ankita Grant on 12-25-2022 Hemoglobin (Bld) [Mass/Vol] 13.8 g/dL 11.8-15.4 [facility] Leukocytes [#/volume] correc steven for nucleated erythrocytes in Blood by Automated counOrdered By: Ankita Grant on 12-25-2022 WBC corrected for nucl RBC Auto (Bld) [#/Vol] 7.9 10*3/uL 3.8-11.6 [facility] Lymphocytes Auto (Bld) [#/Vo l]Ordered By: Ankita Grant on 12-25-2022 Lymphocytes (Bld) [#/Vol] 1.9 10*3/uL 1.00-4.8 [facility] Lymphocytes/100 WBC Auto (Bl d)Ordered By: Ankita Grant on 12-25-2022 Lymphocytes/100 WBC (Bld) 24.2 % . [facility] MCH Auto (RBC) [Entitic mass ]Ordered By: Ankita Grant on 12-25-2022 MCH (RBC) [Entitic mass] 30.6 pg 24.7-34.3 [facility] MCHC Auto (RBC) [Mass/Vol]Or dered By: Ankita Grant on 12-25-2022 MCHC (RBC) [Mass/Vol] 32.9 g/dL 32.0-35.0 [facility] MCV Auto (RBC) [Entitic vol] Ordered By: Ankita Grant on 12-25-2022 MCV (RBC) [Entitic vol] 92.9 fL 80-100 [facility] Monocytes Auto (Bld) [#/Vol] Ordered By: Ankita Grant on 12-25-2022 Monocytes (Bld) [#/Vol] 0.8 10*3/uL 0.0-0.8 [facility] Monocytes/100 WBC Auto (Bld) Ordered By: Ankita Grant on 12-25-2022 Monocytes/100 WBC (Bld) 10.6 % . [facility] Neutrophils Auto (Bld) [#/Vo l]Ordered By: Ankita Grant on 12-25-2022 Neutrophils (Bld) [#/Vol] 4.8 10*3/uL 1.8-7.7 [facility] Neutrophils/100 WBC Auto (Bl d)Ordered By: Ankita Grant on 12-25-2022 Neutrophils/100 WBC (Bld) 61.2 % . [facility] No Panel InformationOrdered By: Ankita Grant on 12-25-2022 Estimated GFR (CKD-EPI) 28.227 mL/Min [facility] Creatinine Clearance (Chem N/A [facility] Nucleated erythrocytes [Pres ence] in Blood by Automated countOrdered By: Ankita Grant on 12-25-2022 Nucleated RBC Auto Ql (Bld) 0.1 /100{WBC} 0-0.5 [facility] Platelet mean volume Auto (B ld) [Entitic vol]Ordered By: Ankita Grant on 12-25-2022 Platelet mean volume (Bld) [Entitic vol] 9.8 fL 6.3-10.7 [facility] Platelets Auto (Bld) [#/Vol] Ordered By: Ankita Grant on 12-25-2022 Platelets (Bld) [#/Vol] 156 10*3/uL 150-450 [facility] Potassium [Moles/volume] in Serum or PlasmaOrdered By: Ankita Grant on 12-25-2022 Potassium [Moles/Vol] 4.4 mmol/L 3.5-5.1 [facility] Protein [Mass/volume] in Ser um or PlasmaOrdered By: Ankita Grant on 12-25-2022 Protein [Mass/Vol] 7.1 g/dL 6.4-8.9 [facility] RBC Auto (Bld) [#/Vol]Ordere d By: Ankita Grant on 12-25-2022 RBC (Bld) [#/Vol] 4.51 10*6/uL 3.60-5.00 [facility] Serum or plasma albumin/glob ulin mass ratioOrdered By: Ankita Grant on 12-25-2022 Albumin/Globulin [Mass ratio] 1.4 {ratio} [facility] Serum or plasma anion gap de terminationOrdered By: Ankita Grant on 12-25-2022 Anion gap [Moles/Vol] 9.2 mmol/L 6.0-15.0 [facility] Sodium [Moles/volume] in Ser um or PlasmaOrdered By: Ankita Grant on 12-25-2022 Sodium [Moles/Vol] 139 mmol/L 136-145 [facility] Urea nitrogen [Mass/volume] in Serum or PlasmaOrdered By: Ankita Grant on 12-25-2022 Urea nitrogen [Mass/Vol] 24 mg/dL 7-25 [facility] WBC Auto (Bld) [#/Vol]Ordere d By: Ankita Grant on 12-25-2022 WBC (Bld) [#/Vol] 7.9 10*3/uL 3.8-11.6 [facility] Albumin [Mass/volume] in Ser um or PlasmaOrdered By: David Devlin on 05-01-2022 Albumin [Mass/Vol] 3.8 g/dL 3.2-5.5 [facility] Basophils Auto (Bld) [#/Vol] Ordered By: David Devlin on 05-01-2022 Basophils (Bld) [#/Vol] 0.1 10*3/uL 0.0-0.2 [facility] Basophils/100 WBC Auto (Bld) Ordered By: David Devlin on 05-01-2022 Basophils/100 WBC (Bld) 1.1 % . [facility] Creatinine and Glomerular fi ltration rate.predicted panel (S/P/Bld)Ordered By: David Devlin on 05-01-2022 Creatinine [Mass/Vol] 1.86 mg/dL 0.44-1.03 [facility] Eosinophils Auto (Bld) [#/Vo l]Ordered By: David Devlin on 05-01-2022 Eosinophils (Bld) [#/Vol] 0.2 10*3/uL 0.0-0.45 [facility] Eosinophils/100 WBC Auto (Bl d)Ordered By: David Devlin on 05-01-2022 Eosinophils/100 WBC (Bld) 2.8 % . [facility] Erythrocyte distribution wid th Auto (RBC) [Ratio]Ordered By: David Devlin on 05-01-2022 Erythrocyte distribution width (RBC) [Ratio] 14.2 % 11.9-15.3 [facility] Erythrocyte sedimentation ra te by Photometric methodOrdered By: David Devlin on 05-01-2022 ESR Photometric method (d) [Velocity] 40 mm/hr 0-29 [facility] Estimated glomerular filtrat ion rate (GFR) non- AmericanOrdered By: David Devlin on 05-01-2022 GFR/1.73 sq M.predicted among non-blacks MDRD (S/P/Bld) [Vol rate/Area] 27 mL/Min [facility] Globulin Calc (S) [Mass/Vol] Ordered By: David Devlin on 05-01-2022 Globulin (S) [Mass/Vol] 3.2 g/dL [facility] Hematocrit Auto (Bld) [Volum e fraction]Ordered By: David Devlin on 05-01-2022 Hematocrit (Bld) [Volume fraction] 44.9 % 34.0-46.4 [facility] Hemoglobin [Mass/volume] in BloodOrdered By: David Devlin on 05-01-2022 Hemoglobin (Bld) [Mass/Vol] 14.6 g/dL 11.8-15.4 [facility] Laboratory - Hematology and Cell countsOrdered By: David Devlin on 05-01-2022 Nucleated RBC/100 WBC (Bld) [Ratio] 0.2 % 0-0.5 [facility] Leukocytes [#/volume] in Blo od by Automated countOrdered By: David Devlin on 05-01-2022 WBC (Bld) [#/Vol] 7.2 10*3/uL 4.5-11.0 [facility] Lymphocytes Auto (Bld) [#/Vo l]Ordered By: David Devlin on 05-01-2022 Lymphocytes (Bld) [#/Vol] 1.5 10*3/uL 1.00-4.8 [facility] Lymphocytes/100 WBC Auto (Bl d)Ordered By: David Devlin on 05-01-2022 Lymphocytes/100 WBC (Bld) 21.5 % . [facility] MCH Auto (RBC) [Entitic mass ]Ordered By: David Devlin on 05-01-2022 MCH (RBC) [Entitic mass] 30.3 pg 24.7-34.3 [facility] MCHC Auto (RBC) [Mass/Vol]Or dered By: Dvaid Devlin on 05-01-2022 MCHC (RBC) [Mass/Vol] 32.4 g/dL 32.0-35.0 [facility] MCV Auto (RBC) [Entitic vol] Ordered By: David Devlin on 05-01-2022 MCV (RBC) [Entitic vol] 93.3 fL 80-100 [facility] Monocytes Auto (Bld) [#/Vol] Ordered By: David Devlin on 05-01-2022 Monocytes (Bld) [#/Vol] 0.7 10*3/uL 0.0-0.8 [facility] Monocytes/100 WBC Auto (Bld) Ordered By: David Devlin on 05-01-2022 Monocytes/100 WBC (Bld) 9.6 % . [facility] Neutrophils Auto (Bld) [#/Vo l]Ordered By: David Devlin on 05-01-2022 Neutrophils (Bld) [#/Vol] 4.7 10*3/uL 1.8-7.7 [facility] Neutrophils/100 WBC Auto (Bl d)Ordered By: David Devlin on 05-01-2022 Neutrophils/100 WBC (Bld) 65.0 % . [facility] No Panel InformationOrdered By: David Devlin on 05-01-2022 Estimated GFR () 33 mL/Min [facility] Comment on above: GFR estimated refere nce range: According to KDOQI guidelines, <60 ml/min/1.73m2 is sufficient to diagnose a patient with chronic kidney disease. Pharmacy Creatinine Clearance (Chem N/A [facility] Platelet mean volume Auto (B ld) [Entitic vol]Ordered By: David Devlin on 05-01-2022 Platelet mean volume (Bld) [Entitic vol] 10.0 fL 6.3-10.7 [facility] Platelets Auto (Bld) [#/Vol] Ordered By: David Devlin on 05-01-2022 Platelets (Bld) [#/Vol] 192 10*3/uL 150-450 [facility] Protein [Mass/volume] in Ser um or PlasmaOrdered By: David Devlin on 05-01-2022 Protein [Mass/Vol] 7.0 g/dL 6.1-7.9 [facility] RBC Auto (Bld) [#/Vol]Ordere d By: David Devlin on 05-01-2022 RBC (Bld) [#/Vol] 4.81 10*6/uL 3.60-5.00 [facility] Serum or plasma alanine sen otransferase measurement without P-5'-P (enzymatic activiOrdered By: David Devlin on 05-01-2022 ALT No additional P-5'-P [Catalytic activity/Vol] 13 U/L 10-60 [facility] Serum or plasma albumin/glob ulin mass ratioOrdered By: David Devlin on 05-01-2022 Albumin/Globulin [Mass ratio] 1.2 {ratio} [facility] Serum or plasma alkaline marie sphatase measurement (enzymatic activity/volume)Ordered By: David Devlin on 05-01-2022 ALP [Catalytic activity/Vol] 50 U/L 32-92 [facility] Serum or plasma anion gap de terminationOrdered By: David Devlin on 05-01-2022 Anion gap [Moles/Vol] 12.0 mmol/L 6.0-15.0 [facility] Serum or plasma aspartate am inotransferase measurement (enzymatic activity/volume)Ordered By: David Devlin on 05-01-2022 AST [Catalytic activity/Vol] 14 U/L - [facility] Serum or plasma calcium sydney urement (mass/volume)Ordered By: David Devlin on 05-01-2022 Calcium [Mass/Vol] 9.3 mg/dL 8.2-10.2 [facility] Serum or plasma chloride gemma surement (moles/volume)Ordered By: David Devlin on 05-01-2022 Chloride [Moles/Vol] 106 mmol/L 95-114 [facility] Serum or plasma glucose sydney urement (mass/volume)Ordered By: David Devlin on 05-01-2022 Glucose [Mass/Vol] 75 mg/dL 70-100 [facility] Comment on above: ADA recommended refe rence rangeRandom Glucose Reference Range is dependent on time and content of last meal. Glucose of more than 200 mg/dL in a nonstressed, ambulatory subject supports the diagnosis of Diabetes Mellitus. Serum or plasma potassium me asurement (moles/volume)Ordered By: David Devlin on 05-01-2022 Potassium [Moles/Vol] 5.0 mmol/L 3.5-5.1 [facility] Serum or plasma sodium measu rement (moles/volume)Ordered By: David Devlin on 05-01-2022 Sodium [Moles/Vol] 137 mmol/L 136-146 [facility] Serum or plasma total biliru bin measurement (mass/volume)Ordered By: David Devlin on 05-01-2022 Bilirubin [Mass/Vol] 0.2 mg/dL 0.3-1.2 [facility] Serum or plasma total carbon dioxide measurement (moles/volume)Ordered By: David Devlin on 05-01-2022 CO2 [Moles/Vol] 24.0 mmol/L 22.0-30.0 [facility] Serum or plasma urea nitroge n measurement (mass/volume)Ordered By: David Devlin on 05-01-2022 Urea nitrogen [Mass/Vol] 27 mg/dL 9-23 [facility] US CAROTID ART BILon US CAROTID ART AMARJIT EXAMINATION: US CAROTID ART AMARJIT HISTORY: Cardiovascular symptoms COMPARISON: No relevant comparison available. TECHNIQUE: Duplex Doppler ultrasound analysis of carotid and vertebral arteries. . Bilateral carotid arterial duplex examination was performed using B-mode, color flow and spectral analysis. Carotid stenosis is reported according to validated velocity parameters, similar to NASCET criteria. FINDINGS: RIGHT CAROTID ARTERY Mild atherosclerotic plaque Subclavian: PSV: 185.6 cm/s cm/s EDV: 0.0 cm/s cm/s CCA: Prox: PSV: 118.2 cm/s cm/s EDV: 34.6 cm/s cm/s Mid: PSV: 84.6 cm/s cm/s EDV: 23.5 cm/s cm/s Distal: PSV: 102.3 cm/s cm/s EDV: 31.3 cm/s cm/s BULB: PSV: 74.7 cm/s cm/s EDV: 21.5 cm/s cm/s ICA: Prox: PSV: 90.5 cm/s cm/s EDV: 25.4 cm/s cm/s Mid: PSV: 124.0 cm/s cm/s EDV: 45.1 cm/s cm/s Distal: PSV: 104.2 cm/s cm/s EDV: 33.3 cm/s cm/s ECA: PSV: 92.4 cm/s cm/s EDV: 15.6 cm/s cm/s VERTEBRAL: PSV: 80.5 cm/s cm/s EDV: 23.4 cm/s cm/s ICA/CCA ratio: PSV: 1.2 EDV: 1.4 LEFT CAROTID ARTERY Mild atherosclerotic plaque Subclavian: PSV: 166.9 cm/s cm/s EDV: 0.0 cm/s CCA: Prox: PSV: 108.9 cm/s cm/s EDV: 34.6 cm/s Mid: PSV: 99.6 cm/s cm/s EDV: 29.9 cm/s Distal: PSV: 108.9 cm/s cm/s EDV: 36.9 cm/s BULB: PSV: 69.3 cm/s cm/s EDV: 22.4 cm/s ICA: Prox: PSV: 90.2 cm/s cm/s EDV: 28.9 cm/s Mid: PSV: 135.2 cm/s cm/s EDV: 44.5 cm/s Distal: PSV: 133.2 cm/s cm/s EDV: 42.6 cm/s ECA: PSV: 107.6 cm/s cm/s EDV: 18.9 cm/s VERTEBRAL: PSV: 60.7 cm/s cm/s EDV: 18.0 cm/s ICA/CCA ratio: PSV: 1.2 EDV: 1.2 IMPRESSION: 0-49% flow stenosis bilateral internal carotid arteries Spectral Doppler US Thresholds (Reference: Bishop EG, et al. Radiology 2000; 214:247-252) Stenosis (%) PSV (cm/sec) VICA/VCCA 0-49 <150 <2.5 50-69 150-225 2.5-4.0 >70 >225 >4.0 Electronically authenticated by: SHERMAN MILLER Date: 2022-04-17 17:14 Normal [facility] INSULINon 03-15-2022 Insulin 10.0 uIU/mL Normal 2.6-24.9 [facility] Comment on above: Performed By: #### I NSULIN #### [facility] [address] [place] [address] Dr. Virgen Barrera T4, T3U, FTI LABCORPon 03-15 Free Thyroxine Index 1.8 Normal 1.2-4.9 [facility] Comment on above: Performed By: #### T HYLC #### [facility] [address] [place] [address] Dr. Virgen Barrera T3 Uptake 28 % Normal 24-39 [facility] Comment on above: Performed By: #### T HYLC #### [facility] [address] [address] [address] Virgen Barrera T4 [Mass/Vol] 6.6 ug/dL Normal 4.5-12.0 [facility] Comment on above: Performed By: #### T HYLC #### [facility] [address] [place] [address] Dr. Virgen Barrera CBC AUTO DIFFon 03-14-2022 BASO # 0.1 103/ul Normal 0.0-0.1 [facility] Comment on above: Performed By: #### C BC #### [facility] [address] [address] [address] Virgen Barrera Basophils/100 WBC (Bld) 1.0 % Normal 0.2-2.0 [facility] Comment on above: Performed By: #### C BC #### [facility] [address] [address] [address] Virgen Barrera EO # 0.2 103/ul Normal 0.0-0.7 [facility] Comment on above: Performed By: #### C BC #### [facility] [address] [place] [address] Dr. Virgen Barrera Eosinophils/100 WBC (Bld) 3.2 % Normal 0.9-7.0 [facility] Comment on above: Performed By: #### C BC #### [facility] [address] [place] [address] Dr. Virgen Barrera Erythrocyte distribution width (RBC) [Ratio] 13.4 % Normal 11.0-15.0 [facility] Comment on above: Performed By: #### C BC #### [facility] [address] [place] [address] Dr. Virgen Barrera Hematocrit (Bld) [Volume fraction] 43.7 % Normal 36.0-48.0 [facility] Comment on above: Performed By: #### C BC #### [facility] [address] [place] [address] Dr. Virgen Barrera Hemoglobin (Bld) [Mass/Vol] 14.0 g/dL Normal 12.0-16.0 [facility] Comment on above: Performed By: #### C BC #### [facility] [address] [place] [address] Dr. Virgen Barerra IG # 0.02 10e3/ul Normal 0.00-0.03 [facility] Comment on above: Performed By: #### C BC #### [facility] [address] [place] [address] Dr. Virgen Barrera IG % 0.3 % Normal 0.0-0.5 [facility] Comment on above: Performed By: #### C BC #### [facility] [address] [place] [address] Dr. Virgen Barrera LYMPH # 1.6 103/ul Normal 1.2-3.8 [facility] Comment on above: Performed By: #### C BC #### [facility] [address] [place] [address] Dr. Virgen Barrera Lymphocytes/100 WBC (Bld) 22.5 % Normal 20.5-60.0 [facility] Comment on above: Performed By: #### C BC #### [facility] [address] [place] [address] Dr. Virgen Barrera MANUAL DIFF REQ NO Normal [facility] Comment on above: Performed By: #### C BC #### [facility] [address] [place] [address] Dr. Virgen Barrera MCH (RBC) [Entitic mass] 30.4 pg Normal 26.7-34.0 [facility] Comment on above: Performed By: #### C BC #### [facility] [address] [place] [address] Dr. Virgen Barrera MCHC (RBC) [Mass/Vol] 32.0 g/dL Normal 29.9-35.2 [facility] Comment on above: Performed By: #### C BC #### [facility] [address] [place] [address] Dr. Virgen Barrera MCV (RBC) [Entitic vol] 94.8 fL Normal 81.0-99.0 [facility] Comment on above: Performed By: #### C BC #### [facility] [place] [facility] [address] [place] [address] Dr. Virgen Barrera MONO # 0.7 103/ul Normal 0.3-0.8 [facility] Comment on above: Performed By: #### C BC #### [facility] [place] [facility] [address] [place] [address] Dr. Virgen Barrera Monocytes/100 WBC (Bld) 9.0 % Normal 1.7-12.0 [facility] Comment on above: Performed By: #### C BC #### [facility] [place] [facility] [address] [address] [address] Virgen Barrera NEUT # 4.6 103/ul Normal 1.4-6.5 [facility] Comment on above: Performed By: #### C BC #### [facility] [place] [facility] [address] [address] [address] Virgen Barrera Neutrophils/100 WBC (Bld) 64.0 % Normal 43.0-75.0 [facility] Comment on above: Performed By: #### C BC #### [facility] [place] [facility] [address] [place] [address] Dr. Virgen Barrera Platelet mean volume (Bld) [Entitic vol] 10.7 fL Normal 9.5-13.5 [facility] Comment on above: Performed By: #### C BC #### [facility] [place] [facility] [address] [place] [address] Dr. Virgen Barrera PLT 174 103/ul Normal 150-450 [facility] [place] Comment on above: Performed By: #### C BC #### [facility] [place] [facility] [address] [place] [address] Dr. Virgen Barrera RBC 4.61 106/ul Normal 4.20-5.40 [facility] Comment on above: Performed By: #### C BC #### [facility] [place] [facility] [address] [place] [address] Dr. Virgen Barrera WBC 7.2 103/ul Normal 4.0-11.0 [facility] Comment on above: Performed By: #### C BC #### [facility] [place] [facility] [address] [place] [address] Dr. Virgen Barrera GLYCOHEMOGLOBIN A1Con 2021 ADA RECOMMENDATION SEE BELOW Normal [facility] Comment on above: Result Comment: ADA RECOMMENDED LIMIT 4.0 - 6.0 ADA THERAPEUTIC TARGET < 7.0 ACTION SUGGESTED > 7.0 Performed By: #### A 1C #### [facility] [place] [facility] [address] [place] [address] Dr. Virgen Barrera Glucose [Mass/Vol] 100 mg/dL Normal [facility] Comment on above: Performed By: #### A 1C #### [facility] [place] [facility] [address] [address] [address] Virgen Barrera HbA1c (Bld) [Mass fraction] 5.1 % Normal 4.5-6.2 [facility] Comment on above: Performed By: #### A 1C #### [facility] [place] [facility] [address] [address] [address] Virgen Barrera IRONon 03-14-2022 Iron [Mass/Vol] 58.0 ug/dL Normal 50.0-170.0 [facility] Comment on above: Performed By: #### I BELIA #### [facility] [address] [place] [address] Dr. Virgen Barrera LIPID PROFILEon 03-14-2022 CHOL-HDL RATIO NORM SEE BELOW Normal [facility] Comment on above: Result Comment: 3.3 - 4.4 LOW RISK 4.4 - 7.1 AVERAGE RISK 7.1 - 11.0 MODERATE RISK >11.0 HIGH RISK Performed By: #### T SH, CMP, LIPID #### [facility] [address] [place] [address] Dr. Virgen Barrera Cholesterol [Mass/Vol] 180 mg/dL Normal <=200 [facility] Comment on above: Performed By: #### T SH, CMP, LIPID #### [facility] [address] [place] [address] Dr. Virgen Barrera Cholesterol in HDL [Mass/Vol] 36 mg/dL Critically low 40-60 [facility] Comment on above: Performed By: #### T SH, CMP, LIPID #### [facility] [place] [facility] [address] [place] [address] Dr. Virgen Barrera Cholesterol in LDL [Mass/Vol] 111.0 mg/dL Normal [facility] Comment on above: Performed By: #### T SH, CMP, LIPID #### [facility] [address] [place] [address] Dr. Virgen Barrera Cholesterol.total/Choles terol in HDL [Mass ratio] 5.0 {ratio} Normal [facility] Comment on above: Performed By: #### T SH, CMP, LIPID #### [facility] [place] [facility] [address] [address] [address] Virgen Barrera HDL NORMAL > or = 60 mg/dl - LOW CARDIOVASCULAR RISK <40 mg/dl - HIGH CARDIOVASCULAR RISK Normal [facility] Comment on above: Performed By: #### T SH, CMP, LIPID #### [facility] [place] [facility] [address] [address] [address] Virgen Barrera LDL CALC NORMAL SEE BELOW Normal [facility] Comment on above: Result Comment: <100 mg/dl OPTIMAL 100 - 129 mg/dl NEAR OR ABOVE OPTIMAL 130 - 159 mg/dl BORDERLINE HIGH 160 - 189 mg/dl HIGH >190 mg/dl VERY HIGH Performed By: #### T SH, CMP, LIPID #### [facility] [place] [facility] [address] [address] [address] Virgen Barrera Triglyceride [Mass/Vol] 165 mg/dL Critically high <=150 [facility] Comment on above: Performed By: #### T SH, CMP, LIPID #### [facility] [place] [facility] [address] [address] [address] Virgen Barrera VLDL CALC 33.0 mg/dL Normal [facility] Comment on above: Performed By: #### T SH, CMP, LIPID #### [facility] [place] [facility] [address] [place] [address] Dr. Virgen Barrera PROF 14(COMP METB)on 022 Albumin [Mass/Vol] 3.5 g/dL Normal 3.4-5.0 [facility] Comment on above: Performed By: #### T SH, CMP, LIPID #### [facility] [address] [place] [address] Dr. Virgen Barrera Albumin/Globulin [Mass ratio] 0.9 {ratio} Normal [facility] Comment on above: Performed By: #### T SH, CMP, LIPID #### [facility] [address] [place] [address] Dr. Virgen Barrera ALP [Catalytic activity/Vol] 57 U/L Normal 46-116 [facility] Comment on above: Performed By: #### T SH, CMP, LIPID #### [facility] [place] [facility] [address] [place] [address] Dr. Virgen Barrera ALT [Catalytic activity/Vol] 18 U/L Normal 14-59 [facility] Comment on above: Performed By: #### T SH, CMP, LIPID #### [facility] [address] [place] [address] Dr. Virgen Barrera Anion gap [Moles/Vol] 13.4 mmol/L Normal [facility] Comment on above: Performed By: #### T FABIOLA, CMP, LIPID #### [facility] [address] [address] [address] Virgen Barrera AST [Catalytic activity/Vol] 11 U/L Critically low 15-37 [facility] Comment on above: Performed By: #### T FABIOLA CMP, LIPID #### [facility] [address] [place] [address] Dr. Virgen Barrera Bilirubin [Mass/Vol] 0.3 mg/dL Normal 0.2-1.0 [facility] Comment on above: Performed By: #### T FABIOLA, CMP, LIPID #### [facility] [address] [place] [address] Dr. Virgen Barrera Calcium [Mass/Vol] 8.7 mg/dL Normal 8.5-10.1 [facility] Comment on above: Performed By: #### T FABIOLA, CMP, LIPID #### [facility] [place] [facility] [address] [place] [address] Dr. Virgen Barrera Chloride [Moles/Vol] 106 mmol/L Normal 98-107 [facility] Comment on above: Performed By: #### T SH, CMP, LIPID #### [facility] [place] [facility] [address] [place] [address] Dr. Virgen Barrera CO2 [Moles/Vol] 26.3 mmol/L Normal 21.0-32.[address] [facility] Comment on above: Performed By: #### T SH, CMP, LIPID #### [facility] [address] [place] [address] Dr. Virgen Barrera Creatinine [Mass/Vol] 1.88 mg/dL Critically high 0.55-1.02 [facility] Comment on above: Performed By: #### T SH, CMP, LIPID #### [facility] [place] [facility] [address] [address] [address] Virgen Barrera EGFR-AF AUSTRALIAN 32 mL/min/1.73m2 Critically low >=60 [facility] Comment on above: Performed By: #### T SH, CMP, LIPID #### [facility] [address] [address] [address] Virgen Barrera EGFR-NON AF AUSTRALIAN 27 mL/min/1.73m2 Critically low >=60 [facility] Comment on above: Performed By: #### T SH, CMP, LIPID #### [facility] [address] [address] [address] Virgen Barrera Globulin (S) [Mass/Vol] 4.0 g/dL Normal [facility] Comment on above: Performed By: #### T SH, CMP, LIPID #### [facility] [address] [address] [address] Virgen Barrera Glucose [Mass/Vol] 87 mg/dL Normal 74-106 [facility] Comment on above: Performed By: #### T SH, CMP, LIPID #### [facility] [address] [address] [address] Virgen Barerra Potassium [Moles/Vol] 4.7 mmol/L Normal 3.5-5.1 [facility] Comment on above: Performed By: #### T SH, CMP, LIPID #### [facility] [address] [address] [address] Virgen Barrera Protein [Mass/Vol] 7.5 g/dL Normal 6.4-8.2 [facility] Comment on above: Performed By: #### T SH, CMP, LIPID #### [facility] [address] [address] [address] Virgen Barrera Sodium [Moles/Vol] 141 mmol/L Normal 136-145 [facility] Comment on above: Performed By: #### T SH, CMP, LIPID #### [facility] [address] [address] [address] Virgen Barrera Urea nitrogen [Mass/Vol] 25.0 mg/dL Critically high 7.0-18 .0 [facility] Comment on above: Performed By: #### T SH, CMP, LIPID #### [facility] [place] [facility] [address] [place], [place] [address] Dr. Virgen Barrera Urea nitrogen/Creatinine [Mass ratio] 13.3 mg/mg Normal [facility] Comment on above: Performed By: #### T SH, CMP, LIPID #### [facility] [place] [facility] [address] [address] [address] Virgen Barrera TSHon 03-14-2022 TSH 3.274 uIU/mL Normal 0.358-3.740 [facility] Comment on above: Performed By: #### T SH, CMP, LIPID #### [facility] [place] [facility] [address] [id number] Virgen Barrera Basophils Auto (Bld) [#/Vol] Ordered By: David Devlin on 02-06-2022 Basophils (Bld) [#/Vol] 0.1 10*3/uL 0.0-0.2 [facility] Basophils/100 WBC Auto (Bld) Ordered By: David Devlin on 02-06-2022 Basophils/100 WBC (Bld) 1.2 % . [facility] Blood hemoglobin measurement (mass/volume)Ordered By: David Devlin on 02-06-2022 Hemoglobin (Bld) [Mass/Vol] 13.5 g/dL 11.8-15.4 [facility] Blood leukocytes automated c ount (number/volume)Ordered By: David Devlin on 02-06-2022 WBC (Bld) [#/Vol] 6.9 10*3/uL 4.5-11.0 [facility] Body fluid albumin measureme nt (mass/volume)Ordered By: David Devlin on 02-06-2022 Albumin (Body fld) [Mass/Vol] 3.6 g/dL 3.2-5.5 [facility] Creatinine and Glomerular fi ltration rate.predicted panel (S/P/Bld)Ordered By: David Devlin on 02-06-2022 Creatinine [Mass/Vol] 1.99 mg/dL 0.44-1.03 [facility] Eosinophils Auto (Bld) [#/Vo l]Ordered By: David Devlin on 02-06-2022 Eosinophils (Bld) [#/Vol] 0.2 10*3/uL 0.0-0.45 [facility] Eosinophils/100 WBC Auto (Bl d)Ordered By: David Devlin on 02-06-2022 Eosinophils/100 WBC (Bld) 2.8 % . [facility] Erythrocyte distribution wid th Auto (RBC) [Ratio]Ordered By: David Devlin on 02-06-2022 Erythrocyte distribution width (RBC) [Ratio] 14.0 % 11.9-15.3 [facility] Erythrocyte sedimentation ra te by Photometric methodOrdered By: David Devlin on 02-06-2022 ESR Photometric method (d) [Velocity] 54 mm/hr 0-29 [facility] Estimated glomerular filtrat ion rate (GFR) non- AmericanOrdered By: David Devlin on 02-06-2022 GFR/1.73 sq M.predicted among non-blacks MDRD (S/P/Bld) [Vol rate/Area] 25 mL/Min [facility] Globulin Calc (S) [Mass/Vol] Ordered By: David Devlin on 02-06-2022 Globulin (S) [Mass/Vol] 3.2 g/dL [facility] Hematocrit Auto (Bld) [Volum e fraction]Ordered By: David Devlin on 02-06-2022 Hematocrit (Bld) [Volume fraction] 41.0 % 34.0-46.4 [facility] Laboratory - Hematology and Cell countsOrdered By: David Devlin on 02-06-2022 Nucleated RBC/100 WBC (Bld) [Ratio] 0.1 % 0-0.5 [facility] Lymphocytes Auto (Bld) [#/Vo l]Ordered By: David Devlin on 02-06-2022 Lymphocytes (Bld) [#/Vol] 1.5 10*3/uL 1.00-4.8 [facility] Lymphocytes/100 WBC Auto (Bl d)Ordered By: David Devlin on 02-06-2022 Lymphocytes/100 WBC (Bld) 21.4 % . [facility] MCH Auto (RBC) [Entitic mass ]Ordered By: David Devlin on 02-06-2022 MCH (RBC) [Entitic mass] 30.6 pg 24.7-34.3 [facility] MCHC Auto (RBC) [Mass/Vol]Or dered By: David Devlin on 02-06-2022 MCHC (RBC) [Mass/Vol] 33.1 g/dL 32.0-35.0 [facility] MCV Auto (RBC) [Entitic vol] Ordered By: David Devlin on 02-06-2022 MCV (RBC) [Entitic vol] 92.6 fL 80-100 [facility] Monocytes Auto (Bld) [#/Vol] Ordered By: David Devlin on 02-06-2022 Monocytes (Bld) [#/Vol] 0.7 10*3/uL 0.0-0.8 [facility] Monocytes/100 WBC Auto (Bld) Ordered By: David Devlin on 02-06-2022 Monocytes/100 WBC (Bld) 10.4 % . [facility] Neutrophils Auto (Bld) [#/Vo l]Ordered By: David Devlin on 02-06-2022 Neutrophils (Bld) [#/Vol] 4.4 10*3/uL 1.8-7.7 [facility] Neutrophils/100 WBC Auto (Bl d)Ordered By: David Devlin on 02-06-2022 Neutrophils/100 WBC (Bld) 64.2 % . [facility] No Panel InformationOrdered By: David Devlin on 02-06-2022 Estimated GFR () 30 mL/Min [facility] Comment on above: GFR estimated refere nce range: According to KDOQI guidelines, <60 ml/min/1.73m2 is sufficient to diagnose a patient with chronic kidney disease. Pharmacy Creatinine Clearance (Chem N/A [facility] Platelet mean volume Auto (B ld) [Entitic vol]Ordered By: David Devlin on 02-06-2022 Platelet mean volume (Bld) [Entitic vol] 9.8 fL 6.3-10.7 [facility] Platelets Auto (Bld) [#/Vol] Ordered By: David Devlin on 02-06-2022 Platelets (Bld) [#/Vol] 178 10*3/uL 150-450 [facility] Protein [Mass/volume] in Ser um or PlasmaOrdered By: David Devlin on 02-06-2022 Protein [Mass/Vol] 6.8 g/dL 6.1-7.9 [facility] RBC Auto (Bld) [#/Vol]Ordere d By: David Devlin on 02-06-2022 RBC (Bld) [#/Vol] 4.42 10*6/uL 3.60-5.00 [facility] Serum or plasma alanine sen otransferase measurement without P-5'-P (enzymatic activiOrdered By: David Devlin on 02-06-2022 ALT No additional P-5'-P [Catalytic activity/Vol] 22 U/L 10-60 [facility] Serum or plasma albumin/glob ulin mass ratioOrdered By: David Devlin on 02-06-2022 Albumin/Globulin [Mass ratio] 1.1 {ratio} [facility] Serum or plasma alkaline marie sphatase measurement (enzymatic activity/volume)Ordered By: David Devlin on 02-06-2022 ALP [Catalytic activity/Vol] 47 U/L 32-92 [facility] Serum or plasma aspartate am inotransferase measurement (enzymatic activity/volume)Ordered By: David Devlin on 02-06-2022 AST [Catalytic activity/Vol] 18 U/L 10-42 [facility] Serum or plasma calcium sydney urement (mass/volume)Ordered By: David Devlin on 02-06-2022 Calcium [Mass/Vol] 9.1 mg/dL 8.2-10.2 [facility] Serum or plasma chloride gemma surement (moles/volume)Ordered By: David Devlin on 02-06-2022 Chloride [Moles/Vol] 106 mmol/L 95-114 [facility] Serum or plasma glucose sydney urement (mass/volume)Ordered By: David Devlin on 02-06-2022 Glucose [Mass/Vol] 73 mg/dL 70-100 [facility] Comment on above: ADA recommended refe rence range Random Glucose Reference Range is dependent on time and content of last meal. Glucose of more than 200 mg/dL in a nonstressed, ambulatory subject supports the diagnosis of Diabetes Mellitus. ADA recommended refe rence rangeRandom Glucose Reference Range is dependent on time and content of last meal. Glucose of more than 200 mg/dL in a nonstressed, ambulatory subject supports the diagnosis of Diabetes Mellitus. Serum or plasma potassium me asurement (moles/volume)Ordered By: David Devlin on 02-06-2022 Potassium [Moles/Vol] 4.6 mmol/L 3.5-5.1 [facility] Serum or plasma sodium measu rement (moles/volume)Ordered By: David Devlin on 02-06-2022 Sodium [Moles/Vol] 136 mmol/L 136-146 [facility] Serum or plasma total biliru bin measurement (mass/volume)Ordered By: David Devlin on 02-06-2022 Bilirubin [Mass/Vol] 0.3 mg/dL 0.3-1.2 [facility] Serum or plasma total carbon dioxide measurement (moles/volume)Ordered By: David Devlin on 02-06-2022 CO2 [Moles/Vol] 22.8 mmol/L 22.0-30.0 [facility] Serum or plasma urea nitroge n measurement (mass/volume)Ordered By: David Devlin on 02-06-2022 Urea nitrogen [Mass/Vol] 24 mg/dL 9-23 [facility] Basophils Auto (Bld) [#/Vol] Ordered By: David Devlin on 11-14-2021 Basophils (Bld) [#/Vol] 0.1 10*3/uL 0.0-0.2 [facility] Basophils/100 WBC Auto (Bld) Ordered By: David Devlin on 11-14-2021 Basophils/100 WBC (Bld) 1.0 % [facility] Blood hemoglobin measurement (mass/volume)Ordered By: David Devlin on 11-14-2021 Hemoglobin (Bld) [Mass/Vol] 14.1 g/dL 11.8-15.4 [facility] Blood leukocytes automated c ount (number/volume)Ordered By: David Devlin on 11-14-2021 WBC (Bld) [#/Vol] 6.6 10*3/uL 4.5-11.0 [facility] Body fluid albumin measureme nt (mass/volume)Ordered By: David Devlin on 11-14-2021 Albumin (Body fld) [Mass/Vol] 3.6 g/dL 3.2-5.5 [facility] Creatinine and Glomerular fi ltration rate.predicted panel (S/P/Bld)Ordered By: David Devlin on 11-14-2021 Creatinine [Mass/Vol] 2.12 mg/dL 0.44-1.03 [facility] Eosinophils Auto (Bld) [#/Vo l]Ordered By: David Devlin on 11-14-2021 Eosinophils (Bld) [#/Vol] 0.2 10*3/uL 0.0-0.45 [facility] Eosinophils/100 WBC Auto (Bl d)Ordered By: David Devlin on 11-14-2021 Eosinophils/100 WBC (Bld) 3.5 % [facility] Erythrocyte distribution wid th Auto (RBC) [Ratio]Ordered By: David Devlin on 11-14-2021 Erythrocyte distribution width (RBC) [Ratio] 13.5 % 11.9-15.3 [facility] Erythrocyte sedimentation ra te by Photometric methodOrdered By: David Devlin on 11-14-2021 ESR Photometric method (Bld) [Velocity] 39 mm/hr 0-29 [facility] Estimated glomerular filtrat ion rate (GFR) non- AmericanOrdered By: David Devlin on 11-14-2021 GFR/1.73 sq M.predicted among non-blacks MDRD (S/P/Bld) [Vol rate/Area] 23 mL/Min [facility] Globulin Calc (S) [Mass/Vol] Ordered By: David Devlin on 11-14-2021 Globulin (S) [Mass/Vol] 3.2 g/dL [facility] Hematocrit Auto (Bld) [Volum e fraction]Ordered By: David Devlin on 11-14-2021 Hematocrit (Bld) [Volume fraction] 41.4 % 34.0-46.4 [facility] - Hematology and Cell countsOrdered By: David Devlin on 11-14-2021 Nucleated RBC/100 WBC (Bld) [Ratio] 0.1 % 0-0.5 [facility] Lymphocytes Auto (Bld) [#/Vo l]Ordered By: David Devlin on 11-14-2021 Lymphocytes (Bld) [#/Vol] 1.2 10*3/uL 1.00-4.8 [facility] Lymphocytes/100 WBC Auto (Bl d)Ordered By: David Devlin on 11-14-2021 Lymphocytes/100 WBC (Bld) 18.7 % [facility] MCH Auto (RBC) [Entitic mass ]Ordered By: David Devlin on 11-14-2021 MCH (RBC) [Entitic mass] 30.8 pg 24.7-34.3 [facility] MCHC Auto (RBC) [Mass/Vol]Or dered By: David Devlin on 11-14-2021 MCHC (RBC) [Mass/Vol] 34.2 g/dL 32.0-35.0 [facility] MCV Auto (RBC) [Entitic vol] Ordered By: David Devlin on 11-14-2021 MCV (RBC) [Entitic vol] 90.2 fL 80-100 [facility] Monocytes Auto (Bld) [#/Vol] Ordered By: David Devlin on 11-14-2021 Monocytes (Bld) [#/Vol] 0.6 10*3/uL 0.0-0.8 [facility] Monocytes/100 WBC Auto (Bld) Ordered By: David Devlin on 11-14-2021 Monocytes/100 WBC (Bld) 8.5 % [facility] Neutrophils Auto (Bld) [#/Vo l]Ordered By: David Devlin on 11-14-2021 Neutrophils (Bld) [#/Vol] 4.5 10*3/uL 1.8-7.7 [facility] Neutrophils/100 WBC Auto (Bl d)Ordered By: David Devlin on 11-14-2021 Neutrophils/100 WBC (Bld) 68.3 % [facility] No Panel InformationOrdered By: David Devlin on 11-14-2021 Estimated GFR () 28 mL/Min [facility] Comment on above: GFR estimated refere nce range: According to KDOQI guidelines, <60 ml/min/1.73m2 is sufficient to diagnose a patient with chronic kidney disease. Pharmacy Creatinine Clearance (Chem N/A [facility] Platelet mean volume Auto (B ld) [Entitic vol]Ordered By: David Devlin on 11-14-2021 Platelet mean volume (Bld) [Entitic vol] 9.7 fL 6.3-10.7 [facility] Platelets Auto (Bld) [#/Vol] Ordered By: David Devlin on 11-14-2021 Platelets (Bld) [#/Vol] 143 10*3/uL 150-450 [facility] Protein [Mass/volume] in Ser um or PlasmaOrdered By: David Devlin on 11-14-2021 Protein [Mass/Vol] 6.8 g/dL 6.1-7.9 [facility] RBC Auto (Bld) [#/Vol]Ordere d By: David Devlin on 11-14-2021 RBC (Bld) [#/Vol] 4.59 10*6/uL 3.60-5.00 [facility] Serum or plasma alanine sen otransferase measurement without P-5'-P (enzymatic activiOrdered By: David Devlin on 11-14-2021 ALT No additional P-5'-P [Catalytic activity/Vol] 24 U/L 10-60 [facility] Serum or plasma albumin/glob ulin mass ratioOrdered By: David Devlin on 11-14-2021 Albumin/Globulin [Mass ratio] 1.1 {ratio} [facility] Serum or plasma alkaline marie sphatase measurement (enzymatic activity/volume)Ordered By: David Devlin on 11-14-2021 ALP [Catalytic activity/Vol] 49 U/L 32-92 [facility] Serum or plasma aspartate am inotransferase measurement (enzymatic activity/volume)Ordered By: David Devlin on 11-14-2021 AST [Catalytic activity/Vol] 22 U/L 10-42 [facility] Serum or plasma calcium sydney urement (mass/volume)Ordered By: David Devlin on 11-14-2021 Calcium [Mass/Vol] 9.3 mg/dL 8.2-10.2 [facility] Serum or plasma chloride gemma surement (moles/volume)Ordered By: David Devlin on 11-14-2021 Chloride [Moles/Vol] 107 mmol/L 95-114 [facility] Serum or plasma glucose sydney urement (mass/volume)Ordered By: David Devlin on 11-14-2021 Glucose [Mass/Vol] 92 mg/dL 70-100 [facility] Comment on above: ADA recommended refe rence range Random Glucose Reference Range is dependent on time and content of last meal. Glucose of more than 200 mg/dL in a nonstressed, ambulatory subject supports the diagnosis of Diabetes Mellitus. Serum or plasma potassium me asurement (moles/volume)Ordered By: David Devlin on 11-14-2021 Potassium [Moles/Vol] 4.1 mmol/L 3.5-5.1 [facility] Serum or plasma sodium measu rement (moles/volume)Ordered By: David Devlin on 11-14-2021 Sodium [Moles/Vol] 137 mmol/L 136-146 [facility] Serum or plasma total biliru bin measurement (mass/volume)Ordered By: David Devlin on 11-14-2021 Bilirubin [Mass/Vol] 0.2 mg/dL 0.3-1.2 [facility] Serum or plasma total carbon dioxide measurement (moles/volume)Ordered By: David Devlin on 11-14-2021 CO2 [Moles/Vol] 18.1 mmol/L 22.0-30.0 [facility] Serum or plasma urea nitroge n measurement (mass/volume)Ordered By: David Devlin on 11-14-2021 Urea nitrogen [Mass/Vol] 36 mg/dL 9- [facility] Albumin [Mass/volume] in Ser um or PlasmaOrdered By: David Devlin on 09-19-2021 Albumin [Mass/Vol] 3.9 g/dL 3.2-5.5 [facility] Basophils Auto (Bld) [#/Vol] Ordered By: David Devlin on 09-19-2021 Basophils (Bld) [#/Vol] 0.1 10*3/uL 0.0-0.2 [facility] Basophils/100 WBC Auto (Bld) Ordered By: David Devlin on 09-19-2021 Basophils/100 WBC (Bld) 1.0 % [facility] Blood hemoglobin measurement (mass/volume)Ordered By: David Devlin on 09-19-2021 Hemoglobin (Bld) [Mass/Vol] 14.7 g/dL 11.8-15.4 [facility] Blood leukocytes automated c ount (number/volume)Ordered By: David Devlin on 09-19-2021 WBC (Bld) [#/Vol] 7.3 10*3/uL 4.5-11.0 [facility] Creatinine and Glomerular fi ltration rate.predicted panel (S/P/Bld)Ordered By: David Devlin on 09-19-2021 Creatinine [Mass/Vol] 2.03 mg/dL 0.44-1.03 [facility] Eosinophils Auto (Bld) [#/Vo l]Ordered By: David Devlin on 09-19-2021 Eosinophils (Bld) [#/Vol] 0.3 10*3/uL 0.0-0.45 [facility] Eosinophils/100 WBC Auto (Bl d)Ordered By: David Devlin on 09-19-2021 Eosinophils/100 WBC (Bld) 4.0 % [facility] Erythrocyte distribution wid th Auto (RBC) [Ratio]Ordered By: David Devlin on 09-19-2021 Erythrocyte distribution width (RBC) [Ratio] 14.0 % 11.9-15.3 [facility] Erythrocyte sedimentation ra te by Photometric methodOrdered By: David Devlin on 09-19-2021 ESR Photometric method (Bld) [Velocity] 44 mm/hr 0-29 [facility] Estimated glomerular filtrat ion rate (GFR) non- AmericanOrdered By: David Devlin on 09-19-2021 GFR/1.73 sq M.predicted among non-blacks MDRD (S/P/Bld) [Vol rate/Area] 25 mL/Min [facility] Globulin Calc (S) [Mass/Vol] Ordered By: David Devlin on 09-19-2021 Globulin (S) [Mass/Vol] 3.5 g/dL [facility] Hematocrit Auto (Bld) [Volum e fraction]Ordered By: David Devlin on 09-19-2021 Hematocrit (Bld) [Volume fraction] 44.6 % 34.0-46.4 [facility] Laboratory - Hematology and Cell countsOrdered By: David Devlin on 09-19-2021 Nucleated RBC/100 WBC (Bld) [Ratio] 0.2 % 0-0.5 [facility] Lymphocytes Auto (Bld) [#/Vo l]Ordered By: David Devlin on 09-19-2021 Lymphocytes (Bld) [#/Vol] 1.5 10*3/uL 1.00-4.8 [facility] Lymphocytes/100 WBC Auto (Bl d)Ordered By: David Devlin on 09-19-2021 Lymphocytes/100 WBC (Bld) 20.9 % [facility] MCH Auto (RBC) [Entitic mass ]Ordered By: David Devlin on 09-19-2021 MCH (RBC) [Entitic mass] 30.7 pg 24.7-34.3 [facility] MCHC Auto (RBC) [Mass/Vol]Or dered By: David Devlin on 09-19-2021 MCHC (RBC) [Mass/Vol] 32.9 g/dL 32.0-35.0 [facility] MCV Auto (RBC) [Entitic vol] Ordered By: David Devlin on 09-19-2021 MCV (RBC) [Entitic vol] 93.4 fL 80-100 [facility] Monocytes Auto (Bld) [#/Vol] Ordered By: David Devlin on 09-19-2021 Monocytes (Bld) [#/Vol] 0.5 10*3/uL 0.0-0.8 [facility] Monocytes/100 WBC Auto (Bld) Ordered By: David Devlin on 09-19-2021 Monocytes/100 WBC (Bld) 7.5 % [facility] Neutrophils Auto (Bld) [#/Vo l]Ordered By: David Devlin on 09-19-2021 Neutrophils (Bld) [#/Vol] 4.9 10*3/uL 1.8-7.7 [facility] Neutrophils/100 WBC Auto (Bl d)Ordered By: David Devlin on 09-19-2021 Neutrophils/100 WBC (Bld) 66.6 % [facility] No Panel InformationOrdered By: David Devlin on 09-19-2021 Estimated GFR () 30 mL/Min [facility] Comment on above: GFR estimated refere nce range: According to KDOQI guidelines, <60 ml/min/1.73m2 is sufficient to diagnose a patient with chronic kidney disease. Pharmacy Creatinine Clearance (Chem N/A [facility] Platelet mean volume Auto (B ld) [Entitic vol]Ordered By: David Devlin on 09-19-2021 Platelet mean volume (Bld) [Entitic vol] 10.2 fL 6.3-10.7 [facility] Platelets Auto (Bld) [#/Vol] Ordered By: David Devlin on 09-19-2021 Platelets (Bld) [#/Vol] 168 10*3/uL 150-450 [facility] Protein [Mass/volume] in Ser um or PlasmaOrdered By: David Devlin on 09-19-2021 Protein [Mass/Vol] 7.4 g/dL 6.1-7.9 [facility] RBC Auto (Bld) [#/Vol]Ordere d By: David Devlin on 09-19-2021 RBC (Bld) [#/Vol] 4.77 10*6/uL 3.60-5.00 [facility] Serum or plasma alanine sen otransferase measurement without P-5'-P (enzymatic activiOrdered By: David Devlin on 09-19-2021 ALT No additional P-5'-P [Catalytic activity/Vol] 17 U/L 10-60 [facility] Serum or plasma albumin/glob ulin mass ratioOrdered By: David Devlin on 09-19-2021 Albumin/Globulin [Mass ratio] 1.1 {ratio} [facility] Serum or plasma alkaline marie sphatase measurement (enzymatic activity/volume)Ordered By: David Devlin on 09-19-2021 ALP [Catalytic activity/Vol] 49 U/L 32-92 [facility] Serum or plasma aspartate am inotransferase measurement (enzymatic activity/volume)Ordered By: David Devlin on 09-19-2021 AST [Catalytic activity/Vol] 25 U/L 10-42 [facility] Serum or plasma calcium sydney urement (mass/volume)Ordered By: David Devlin on 09-19-2021 Calcium [Mass/Vol] 9.3 mg/dL 8.2-10.2 [facility] Serum or plasma chloride gemma surement (moles/volume)Ordered By: David Devlin on 09-19-2021 Chloride [Moles/Vol] 106 mmol/L 95-114 [facility] Serum or plasma glucose sydney urement (mass/volume)Ordered By: David Devlin on 09-19-2021 Glucose [Mass/Vol] 79 mg/dL 70-100 [facility] Comment on above: ADA recommended refe rence range Random Glucose Reference Range is dependent on time and content of last meal. Glucose of more than 200 mg/dL in a nonstressed, ambulatory subject supports the diagnosis of Diabetes Mellitus. Serum or plasma potassium me asurement (moles/volume)Ordered By: David Devlin on 09-19-2021 Potassium [Moles/Vol] 5.1 mmol/L 3.5-5.1 [facility] Serum or plasma sodium measu rement (moles/volume)Ordered By: David Devlin on 09-19-2021 Sodium [Moles/Vol] 134 mmol/L 136-146 [facility] Serum or plasma total biliru bin measurement (mass/volume)Ordered By: David Devlin on 09-19-2021 Bilirubin [Mass/Vol] 0.3 mg/dL 0.3-1.2 [facility] Serum or plasma total carbon dioxide measurement (moles/volume)Ordered By: David Devlin on 09-19-2021 CO2 [Moles/Vol] 19.9 mmol/L 22.0-30.0 [facility] Serum or plasma urea nitroge n measurement (mass/volume)Ordered By: David Devlin on 09-19-2021 Urea nitrogen [Mass/Vol] 26 mg/dL 04-04 [facility] Gynecology Office/Clinic Not guillermo 05-19-2019 Gynecology Office/Clinic Note Chief Complaint Annual Last pap 05/10/2018 Neg/ Neg HPV Obstetric History History (0,0,0,2) # 1 Baby 1 Outcome Date: 08/12/1977 Outcome: Live Outcome or Result: Vaginal Gender: Male Gest Age: 40 weeks Wt: -- Hospital: -- Jan Labor: -- Child's Name: -- Baby's Father: -- # 2 Baby 1 Outcome Date: 04/02/1981 Outcome: Live Outcome or Result: Vaginal Gender: Female Gest Age: 40 weeks Wt: -- Hospital: -- Jan Labor: -- Child's Name: -- Baby's Father: -- History of Present Illness Pt is here for annual. Last pap 2017 neg,neg. Pt denies any hx of abnormal paps or mammograms. Pt has no complaints. Review of Systems PHQ Score Initial Depression Screen Score: 0 ROS ? Provider Constitutional: No fever, No chills, No sweats, No weakness. No Weight change; No fatigue. Skin: No rash, No lesions. ENMT: No ear pain, No sore throat, No congestion. Respiratory: No shortness of breath, No cough, No orthopnea, No wheezing. Cardiovascular: No chest pain, No palpitations, No peripheral edema. Gastrointestinal: No nausea, No vomiting, No diarrhea, No GI bleeding. Genitourinary: No dysuria, No hematuria, No discharge, No pain. Gynecology: No abnormal vaginal discharge, No vaginal itching/burning, No vaginal dryness, No painful periods, No abnormal bleeding, No pelvic pain, No painful intercourse, No hair loss/growth, No hot flashes Breast: No breast pain, No skin changes, No masses/lumps, No nipple discharge. Musculoskeletal: No back pain, No trauma. Neurological: No headache, No dizziness, No numbness, No weakness. Psychiatric: No sleeping problems, No irritability, No mood swings/depression. Heme/Lymph: No bleeding tendency, No bruising tendency, No petechiae, No swollen. Physical Exam Vitals & Measurements HR: 80(Peripheral) RR: 16 BP: 120/82 HT: 165 cm WT: 78.1 kg BMI: 28.69 General Exam: Constitutional: alert, no acute distress, well hydrated, well developed, well nourished. Skin: normal color, no rashes, no lesions, no unusual bruising. Head: atraumatic, normocephalic. Eyes: EOM intact, no nystagmus, no icterus. Ears: no external deformities, gross hearing intact. Mouth: normal dentition Neck: supple, no adenopathy, no masses, thyroid normal size, no thyroid tenderness or nodules. Breasts: skin/areolae normal, no masses, no nipple discharge, no erythema/warmth/tend erness, axillae normal. Cardiovascular: RRR, no murmurs, no gallops, no edema. Respiratory: no respiratory distress. Abdomen: nondistended, nontender, no guarding, no masses. Spine: normal mobility, no deformities. Extremities: no deformities, no clubbing, no cyanosis, no edema. Neurol: normal, cranial nn II-XII grossly intact, sensation intact, motor intact, station & gait normal. Psych: oriented to all spheres, affect and mood appropriate, normal interaction, good eye contact. Assessment/Plan 1.63 yo Pt here for annual 2. Mammogram ordered 3. Last pap 2018 neg,neg 4. f/u in 1 yr 5. Pt has not had colonoscopy, I offered her cologuard - pt declined 1. Encounter for well woman exam (Z01.419: Encounter for gynecological examination (general) (routine) without abnormal findings) Ordered: Body Mass Index (BMI) documented 3008F Cervical cancer screening results documented and reviewed 3015F Current tobacco smoker 1034F MA Mamm Screen w/CAD if perf and 3D Amarjit Periodic Comp Preventive Med 40 to 64 years Est [address] Screening mammography documented and reviewed 3014F 2. Osteopenia, (M85.80: Other specified disorders of bone density and structure, unspecified site) Other specified disorders of bone density and structure, unspecified site Ordered: Body Mass Index (BMI) documented 3008F Current tobacco smoker 1034F 3. Rheumatoid arthritis (M06.9: Rheumatoid arthritis, unspecified) Screening mammogram, encounter for (Z12.31: Encounter for screening mammogram for malignant neoplasm of breast) Ordered: MA Mamm Screen w/CAD if perf and 3D Amarjit Follow-up With When Contact Information Tess Alexandra DO In 1 year [address] [place] [address] [phone] Additional Instructions: Problem List/Past Medical History Ongoing Emphysema, unspecified Osteopenia Historical Medications Orencia 250 mg intravenous injection, IV, q4wk tramadol 50 mg oral tablet, 50 mg= 1 tab(s), Oral, q8hr, PRN Allergies No Known Allergies Social History Alcohol - No Risk, 05/19/2019 1-2 times per year, 05/19/2019 Sexual Sexually active: No., 05/19/2019 Substance Abuse - Denies Substance Abuse, 05/19/2019 Tobacco - High Risk, 05/19/2019 10 or more cigarettes (1/2 pack or more)/day in last 30 days Tobacco Use:. Never Smokeless Tobacco Use:. Cigarettes, Yes, 05/19/2019 Immunizations Vaccine Date Status Comments influenza virus vaccine, inactivated - Not Given Patient Refuses Normal [facility] Comment on above: Result Comment: Elec tronically Signed By: Tess Alexandra DO\.br\Date and Time Signed: 05/19/19 15:00 EST BASIC METABOLIC PANELon 09-2 Calcium 9.1 mg/dL Normal 8.6-10.3 [facility] Comment on above: Performed By: #### 0 0071, 39712, 09124 ####[facility] [place] [address], [facility] Chloride 109 mmol/L High 98-107 [facility] Comment on above: Performed By: #### 0 0071, 34430, 91105 ####[facility] [place] [address], [facility] CO2 22 mmol/L Normal 21-31 [facility] Comment on above: Performed By: #### 0 0071, 44475, 02470 ####[facility] [place] [address], [facility] Creatinine 1.86 mg/dL High 0.60-1.20 [facility] Comment on above: Performed By: #### 0 0071, 97607, 38733 ####[facility] [place] [address], [facility] eGFR (black) 33 ml/min/1.73sq m Abnormal >60 [facility] Comment on above: Performed By: #### 0 0071, 76140, 25301 ####[facility] [place] [address], [facility] eGFR (non-black) 27 ml/min/1.73sq m Abnormal >60 [facility] Comment on above: Performed By: #### 0 0071, 80791, 82081 ####[facility] [place] [address], [facility] Glucose mass conc 117 mg/dL High 70-100 [facility] Comment on above: Performed By: #### 0 0071, 45667, 08463 ####[facility] [place] [address], [facility] Potassium molar conc 4.1 mmol/L Normal 3.5-5.1 [facility] Comment on above: Performed By: #### 0 0071, 32623, 83710 ####[facility] [place] [address], [facility] Sodium 138 mmol/L Normal 136-145 [facility] Comment on above: Performed By: #### 0 0071, 79812, 63784 ####[facility] [place] [address], [facility] Urea nitrogen 26 mg/dL High 7-25 [facility] Comment on above: Performed By: #### 0 0071, 98400, 40367 ####[facility] [place] [address], [facility] CBC COMPLETE BLOOD COUNTon 0 04-01-2017 Erythrocyte distribution width Auto Ratio (RBC) 14.8 % Normal 11.5-16.9 [facility] Comment on above: Performed By: #### 5 0608 ####[facility] [facility].[address] Erythrocytes (RBC) 4.42 mill/mm3 Normal 3.50-5.50 [facility] Comment on above: Performed By: #### 5 0608 ####[facility] [facility].[address] Hematocrit (HCT) 39.4 % Normal 36.0-48.0 [facility] Comment on above: Performed By: #### 5 0608 ####[facility] [facility].[address] Hemoglobin mass conc (Bld) 13.0 g/dL Normal 12.0-15.0 [facility] Comment on above: Performed By: #### 5 0608 ####[facility] MCH 29.4 pg Normal 24.0-32.0 [facility] Comment on above: Performed By: #### 5 0608 ####[facility] MCHC mass conc (RBC) 32.9 g/dL Normal 32.0-36.0 [facility] Comment on above: Performed By: #### 5 0608 ####[facility] [facility].[address] MCV 89.3 fL Normal 80.0-100.0 [facility] Comment on above: Performed By: #### 5 0608 ####[facility] PLAT CNT 182 Thou/mm3 Normal 100-400 [facility] Comment on above: Performed By: #### 5 0608 ####[facility] [facility] [place] [address], [facility] WBC (Leukocytes) 13.5 Thou/mm3 High 4.0-10.0 [facility] Comment on above: Performed By: #### 5 0608 ####[facility] [facility] [address], [facility] CREATININE URINE RANDOMon Creatinine 58.0 mg/dL Normal [facility] Comment on above: Result Comment: Ther e are no established reference values for random urine specimens Performed By: #### 2 5706, 65572 ####[facility] [facility] [place] [address], [facility] MAGNESIUM BLOODon 04-01-2017 Magnesium 2.1 mg/dL Normal 1.9-2.7 [facility] Comment on above: Performed By: #### 0 0071, 75951, 43828 ####[facility] [facility] [address], [facility] PHOSPHORUS BLOODon 7 Phosphate 1.3 mg/dL Low 2.5-5.0 [facility] Comment on above: Performed By: #### 0 0071, 07201, 99730 ####[facility] [facility] [address], [facility] T PROT UR Willow 04-01-2017 U TOTAL PROTEIN 31.0 mg/dL Normal [facility] Comment on above: Result Comment: Ther e are no established reference values for random urine specimens Performed By: #### 2 5706, 34759 ####[facility] [facility] [address], [facility] Encounters Encounter Date Encounter Type Care Provider Facility Start: 03-31-2024 End: 03-31-2024 ambulatory KRISHNA MENDIETA [facility] Start: 03-23-2024 End: 03-23-2024 ambulatory PARI ENGLAND Not Available Start: 01-21-2024 End: 01-21-2024 ambulatory KRISHNA MENDIETA [facility] Start: 01-19-2024 End: 01-19-2024 ambulatory RN EMERGENCY ROOM-C [place] Victoria Work Phone: [facility] Work Phone: Start: 01-19-2024 End: 01-19-2024 Patient encounter procedure RN EMERGENCY ROOM-C [place] Victoria Work Phone: [facility] [address] Work Phone: Start: 01-11-2024 End: 01-11-2024 ambulatory ALEX Torres THIERRYCE[place]LE[place] Not Available Start: 01-06-2024 End: 01-06-2024 ambulatory PARI Cm SAMANTA Not Available Start: 12-16-2023 End: 12-16-[address] [facility] Start: 11-19-2023 End: 11-19-2023 ambulatory [facility] Start: 11-10-2023 End: 11-10-2023 ambulatory [facility] Start: 11-05-2023 End: 11-05-2023 ambulatory [facility] Start: 10-26-2023 End: 10-27-2023 [facility]: 10-26-2023 ambulatory BROOKLYN VICTORIA [facility] Start: 10-22-2023 End: 10-22-2023 ambulatory Ankita Grant Facility:[facility] Start: 10-22-2023 End: 10-22-2023 ambulatory RN EMERGENCY ROOM-C [place] Victoria Work Phone: [facility] Work Phone: Start: 10-22-2023 End: 10-22-2023 Patient encounter procedure RN EMERGENCY ROOM-C [place] Victoria Work Phone: [facility] [address] Work Phone: Start: 07-16-2023 End: 07-16-2023 ambulatory RN EMERGENCY ROOM-C [place] Leonie Julien Work Phone: [facility] Work Phone: Start: 07-16-2023 End: 07-16-2023 Patient encounter procedure RN EMERGENCY ROOM-C Brooklyncecelia Pandyamer Work Phone: [facility] [address] Work Phone: Start: 03-19-2023 End: 03-19-2023 ambulatory [place] Leonie Julien Facility:[facility] Start: 03-19-2023 End: 03-19-2023 ambulatory RN EMERGENCY ROOM-C [place] Leonie Julien Work Phone: [facility] Work Phone: Start: 03-19-2023 End: 03-19-2023 Patient encounter procedure RN EMERGENCY ROOM-C Brooklyncecelia Pandyamer Work Phone: [facility] [address] Work Phone: Start: 12-25-2022 End: 12-25-2022 ambulatory Brooklyncecelia Pandyamer Facility:[facility] Start: 12-25-2022 End: 12-25-2022 ambulatory RN EMERGENCY ROOM-C [place] Leonie Julien Work Phone: [facility] Work Phone: Start: 12-25-2022 End: 12-25-2022 Patient encounter procedure RN EMERGENCY ROOM-C Brooklyncecelia Pandyamer Work Phone: [facility] [address] Work Phone: Start: 05-01-2022 End: 05-01-2022 ambulatory RN EMERGENCY ROOM-C [place] Leonie Julien Work Phone: [facility] Work Phone: Start: 05-01-2022 End: 05-01-2022 Patient encounter procedure RN EMERGENCY ROOM-C [place] Julien Work Phone: [facility] [address] Start: 04-17-2022 End: 04-18-[address] ELIZABETH WHITLEY Facility:[facility] Start: 03-21-2022 End: 03-22-2022 ambulatory BROOKLYN VICTORIA Facility:[facility] Start: 03-14-2022 End: 03-15-2022 ambulatory BROOKLYN VICTORIA Facility:[facility] Start: 02-06-2022 End: 02-06-2022 Patient encounter procedure RN EMERGENCY ROOM-C [place] Victoria Work Phone: [facility] [address] Start: 11-14-2021 End: 11-14-2021 Patient encounter procedure RN EMERGENCY ROOM-C [place] Julien Work Phone: [facility] [address] Start: 09-19-2021 End: 09-19-2021 Patient encounter procedure RN EMERGENCY ROOM-C [place] Julien Work Phone: [facility] [address] Start: 04-01-2017 End: 04-02-2017 Ambulatory EITAN CROSS Facility:[facility] Payers Date Payer Category Payer Self-pay [id number] [facility] 2019 Unknown [id number] b 1959 Medicare [id number] 1959 Unknown [id number] 1954 Unknown [id number] 2..1.295850.3.579.2.593 1954 Unknown [id number] 2..1.361052.3.579.2.593 1954 Unknown [id number] 2.0.1.754706.3.579.2.593 1954 Unknown [id number] 2..1.428292.3.579.2.1286 1954 Unknown [id number] 2.16.840.1.489122.3.579.2.1286 1954 Unknown [id number] 2.16.840.1.410811.3.579.2.1286 1954 Unknown [id number] 2.16.840.1.705267.3.579.2.128 1954 Unknown [id number] 2.16.840.1.922745.3.579.2.128 1954 Unknown [id number] 2.16.840.1.511011.3.579.2.128 1954 Unknown [id number] 2.16.840.1.299213.3.579.2.128 1954 Unknown [id number] 2.16.840.1.964962.3.579.2.1285 1954 Unknown [id number] 2.16.840.1.377037.3.579.2.1286 1954 Unknown [id number] 2.16.840.1.868682.3.579.2.9 1954 Unknown [id number] 2.16.840.1.198603.3.579.2.1259 1954 Unknown [id number] 2.16.840.1.141264.3.579.2.9 1954 Unknown [id number] 2.16.840.1.855039.3.579.2.1286 1954 Unknown [id number] 2.16.840.1.370304.3.579.2.128 1954 Unknown [id number] 2.16.840.1.042313.3.579.2.1286 Medicare [place] MCR PFFS [id number] Private Health Insurance [employer] MCR PFFS M [id number] Unknown [id number] Unknown [id number] 2.16840.1.001015.3.579.2.531 Unknown [id number] 2.16840.1.318581.3.579.2.531 Unknown [id number] 2.0.1.061779.3.579.2.531 Unknown [id number] 2.16840.1.350116.3.579.2.531 Social History Date Type Detail Facility Tobacco smoking stat [facility] Unknown if ever smoked [facility] Work Phone: Start: 1955 Sex Assigned At Female [facility] Start: 11-26-2015 Tobacco smoking stat [facility] Smoker (finding) [facility] Evaluation note Note Date & Type Note Facility Evaluation note No assessment information availa ble [facility] Work Phone: Summary Purpose Family History No Family History Records Found Relationship Condition Age at Onset Recorded Date/T nida father Malignant neoplasm Unknown Unknown Not Specified Unknown Heart disease Unknown Relationship Condition Age at Onset Recorded Date/T nida father Malignant neoplasm Unknown Unknown mother Unknown Heart disease Unknown Advance Directives No Advanced Directives Records Found Advance Directive Response Recorded Date/ Time Advance Directives No March 8:10am Advance Directive Response Recorded Date/ Time Advance Directives No March 7:10am Chief Complaint and Reason for Visit Chief Complaint M05.79 M15.0 Z79.899 m05.79 m15.0 z79.899 Chief Complaint M05.79 M15.0 Z79.899 Chief Complaint M05.79/M15.0/Z79.899 Chief Complaint M05.79 / M15.0 / Z79 .899 M05.79 m15.0 z79.899 Additional Source Comments INFORMATION SOURCE (unrecogn ized section and content) DATE CREATED AUTHOR 01/06/2018 [facility] DATE CREATED AUTHOR AUTHOR'S ORGANIZ ATION 05/20/2019 [facility] DATE CREATED AUTHOR AUTHOR'S ORGANIZ ATION 04/21/2022 [facility] DATE CREATED AUTHOR AUTHOR'S ORGANIZ ATION 11/01/2023 [facility] DATE CREATED AUTHOR AUTHOR'S ORGANIZ ATION 12/17/2023 [facility] DATE CREATED AUTHOR AUTHOR'S ORGANIZ ATION 01/27/2024 [facility] DATE CREATED AUTHOR AUTHOR'S ORGANIZ ATION 03/25/2024 [facility] EPIC DATE CREATED AUTHOR AUTHOR'S ORGANIZ ATION 04/02/2024 [facility] Care Teams (unrecognized sec tion and content) Team Status: Inactive Member Role Status Dates [place] Victoria NP-C Primary Care Provider Active Tayo Devlin MD Attending Provider Active Team Status: Active Member Role Status Dates [place] Victoria NP-C Primary Care Provider Active Team Status: Inactive Member Role Status Dates [place] Victoria NP-C Primary Care Provider Active Ankita Grant NP-C Attending Provider Active Team Status: Inactive Member Role Status Dates [place] Victoria NP-C Primary Care Provider Active David Devlin MD Attending Provider Active Team Status: Inactive Member Role Status Dates [place] Victoria NP-C Primary Care Provider Active Start: October 22, 2023 End: October 22, 2023 Ankita Grant NP-C Attending Provider Active Start: October 22, 2023 End: October 22, 2023 Team Status: Inactive Member Role Status Dates [place] Victoria NP-C Primary Care Provider Active Start: January 19, 2024 End: January 19, 2024 Ankita Grant NP-C Attending Provider Active Start: January 19, 2024 End: January 19, 2024 Goals (unrecognized section and content) Goals may be documented in a n alternate sectionGoals may be documented in an alternate sectionGoals may be documented in an alternate sectionGoals may be documented in an alternate sectionGoals may be documented in an alternate sectionGoals may be documented in an alternate sectionGoals may be documented in an alternate sectionGoals may be documented in an alternate section FOR RECORDS PERTAINING TO PATIENTS WHO ARE OR HAVE BEEN ENROLLED IN A CHEMICAL DEPENDENCY/SUBSTANCEABUSE PROGRAM, SOME INFORMATION MAY BE OMITTED. This clinical summary was aggregated from multiple sources. Caution should be exercised in using it in the provision of clinical care. This summary normalizes information from multiple sources, and as a consequence, information in this document may materially change the coding, format and clinical context of patient data. In addition, data may be omitted in some cases. CLINICAL DECISIONS SHOULD BE BASED ON THE PRIMARY CLINICAL RECORDS. [facility] provides no warranty or guarantee of the accuracy or completeness of information in this document.
--- NOTE | 2024-04-06 07:43 | US_ITS ---
The [address] [address] Patient Name: RODO MARES MRN: [facility]:[id number] date: 1955 Sex: F Assigned Patient Location: Current Patient Location: US Accession/Order Number: [id number] Exam Date: 04/06/2024 07:45 Report Date: 04/06/2024 12:57 At the request of: KRISHNA SERRATO Procedure: US carotid duplex BI DUPLEX ULTRASOUND EXAMINATION OF THE CAROTID ARTERIES. COMPARISON: None. HISTORY / INDICATIONS: History of carotid stent. TECHNIQUE: Bilateral common carotid arteries, extracranial internal and external carotid arteries are evaluated with johnson-scale imaging, color Doppler, and spectral analysis according to a standard protocol. ICA-CCA ratios are calculated with indirect sales representative peak-systolic velocities and recorded. Vertebral arteries are evaluated in one segment to evaluate for patency and character of flow. Comparison with previous evaluation is performed when available. Unless otherwise specified, all velocities are measured in cm/sec. Carotid stenosis is reported according to validated velocity parameters, similar to NASCET criteria. FINDINGS: Right Carotid: Plaque was noted. Velocity measurements as follows: Internal Carotid Artery 86/26 and 83/24. ICA to CCA ratio: 0.8. Left Carotid: Carotid stent was noted. Velocity measurements as follows: Internal Carotid Artery 87/24 and 103/31. ICA to CCA ratio: 1.3. Antegrade flow was seen in both vertebral arteries. CONCLUSION: 1. Less than 50% stenosis of the right ICA. 2. Less than 50% stenosis of the left ICA. 3. Vertebral arteries are patent and demonstrate antegrade flow. Electronically authenticated by: Dwain JEREZ Date: 04/06/2024 12:57
--- NOTE | 2024-04-06 07:49 | US_ITS ---
The [address] [address] Patient Name: RODO MARES MRN: [id number] date: 1955 Sex: F Assigned Patient Location: Current Patient Location: Accession/Order Number: [id number] Exam Date: 04/06/2024 07:45 Report Date: 04/06/2024 12:57 At the request of: KRISHNA SERRATO Procedure: US aorta CLINICAL DATA: Screening. PROCEDURE: Duplex Ultrasound of the Abdominal Aorta TECHNIQUE: Grayscale, color doppler, and spectral waveform analysis was performed COMPARISON: None. FINDINGS: Color flow was seen in the abdominal aorta. The waveform was multiphasic. Measurements as follows: Proximal Aorta: 2.0 x 2.0 cm. Mid Aorta: 1.4 x 1.7 cm. Distal Aorta: 1.7 x 1.9 cm. No iliac artery aneurysm was seen. US/US aorta IMPRESSION: No abdominal aortic aneurysm. Electronically authenticated by: Dwain JEREZ Date: 04/06/2024 12:57
== END 2024-04-06 07:41 | disposition home or self-care (01) ==
LOC: US 07:41
PROVIDERS: PCP Nurse Practitioner Family; Visit Provider Student in an Organized Health Care Education/Training Program
DX: I65.23 Occlusion and stenosis of bilateral carotid arteries (principal); Z13.6 Encounter for screening for cardiovascular disorders; Z87.891 Personal history of nicotine dependence
CPT/HCPCS: 76706; 93880

== ENCOUNTER 2024-06-24 09:51 | Outpatient (RCR) | payer MEDICARE, OTHER, SELFPAY | END 2024-07-12 14:34 | disposition home or self-care (01) | LOC: PT 09:51 | PROVIDERS: PCP Nurse Practitioner Family; Visit Provider Registered Nurse | DX: M25.551 Pain in right hip (principal); M25.552 Pain in left hip | CPT/HCPCS: 97110; 97140; 97162 ==

== ENCOUNTER 2024-07-13 08:16 | Outpatient (RCR) | payer MEDICARE, OTHER, SELFPAY | END 2024-09-01 07:37 | disposition home or self-care (01) | LOC: PT 08:16 | PROVIDERS: PCP Nurse Practitioner Family; Visit Provider Registered Nurse | DX: M25.552 Pain in left hip (principal); M25.551 Pain in right hip | CPT/HCPCS: 97110; 97112; 97140 ==

== ENCOUNTER 2024-07-18 14:10 | Outpatient (OUT) | payer MEDICARE, OTHER, SELFPAY ==
[2024-07-18 14:25] LABS: Basophils Absolute Auto 0.1 10^3/uL (0.0-0.1); Basophils Percent Auto 0.7 % (0.2-2.0); Eosinophils Absolute Auto 0.2 10^3/uL (0.0-0.7); Eosinophils Percent Auto 2.2 % (0.9-7.0); Hemoglobin 13.3 g/dL (12.0-16.0); Immature Granulocytes Abs Auto 0.04 10^3/uL (0.00-0.03); Immature Granulocytes Pct Auto 0.4 % (0.0-0.5); Lymphocytes Absolute Auto 1.8 10^3/uL (1.2-3.8); Lymphocytes Percent Auto 19.5 % (20.5-60.0); Mean Corpuscular HGB Conc 31.7 g/dL (29.9-35.2); Mean Corpuscular Hemoglobin 29.6 pg (26.7-34.0); Mean Corpuscular Volume 93.5 fL (81.0-99.0); Mean Platelet Volume 10.1 fL (9.5-13.5); Monocytes Absolute Auto 0.9 10^3/uL (0.3-0.8); Monocytes Percent Auto 10.4 % (1.7-12.0); Neutrophils Percent Auto 66.8 % (43.0-75.0); Platelet Count 180 10^3/uL (150-450); Red Blood Count 4.49 10^6/uL (4.20-5.40)
[2024-07-18 14:27] LABS: Erythrocyte Sedimentation Rate 32 mm/hr (<=30)
[2024-07-18 14:43] LABS: Alanine Aminotransferase 20 U/L (14-59); Albumin Globulin Ratio 0.9; Albumin Level 3.4 g/dL (3.4-5.0); Alkaline Phosphatase 56 U/L (46-116); Anion Gap 12.3; Aspartate Amino Transferase 13 U/L (15-37); BUN Creatinine Ratio 16.1; Bilirubin Total 0.2 mg/dL (0.2-1.0); Calcium 8.4 mg/dL (8.5-10.1); Carbon Dioxide 24.1 mmol/L (21.0-32.0); Chloride 107 mmol/L (98-107); Estimated GFR (African America 25 (>=60 mL/min/1.73m^2); Estimated GFR (Non-African Ame 20 (>=60 mL/min/1.73m^2); Globulin 3.6 g/dL; Glucose 93 mg/dL (74-106); Potassium 5.4 mmol/L (3.5-5.1); Sodium 138 mmol/L (136-145)
== END 2024-07-18 14:11 | disposition home or self-care (01) ==
LOC: LAB 14:11
PROVIDERS: PCP Nurse Practitioner Family; Visit Provider Internal Medicine Rheumatology
DX: M05.79 Rheumatoid arthritis with rheumatoid factor 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 organ or systems involvement (principal); M15.0 Primary generalized (osteo)arthritis; Z79.899 Other long term (current) drug therapy
CPT/HCPCS: 36415; 80053; 85025; 85652